=== PATIENT | male | born 1960 | race Caucasian/White ===

== ENCOUNTER → 2020-01-22 | Outpatient (CLI) | payer BC ==
--- NOTE | 2020-01-22 09:37 | XR ---
EXAMINATION TYPE: XR chest 2V DATE OF EXAM: 01/22/2020 COMPARISON: Prior chest x-ray 01/28/2010 HISTORY: COPD and shortness of breath TECHNIQUE: Frontal and lateral views of the chest are obtained. FINDINGS: There is no focal air space opacity, pleural effusion, or pneumothorax seen. Questionable nodular density left lung apex. The cardiac silhouette size is within normal limits. There are promin ent lung volumes. The osseous structures are intact. IMPRESSION: Question left upper lobe lung nodule. Apical lordotic chest x-ray or chest CT could be p erformed for better evaluation.
== END | disposition home or self-care (01) ==
LOC: RADXRMAIN 08:27
PROVIDERS: ATTEND Family Medicine
DX: J44.9 Chronic obstructive pulmonary disease, unspecified (principal); R06.02 Shortness of breath
CPT/HCPCS: 71046

== ENCOUNTER 2020-02-01 09:33 | Inpatient (IN) | payer BC ==
[2020-02-01] MEDS ORDERED: SODIUM CHLORIDE 0.9% 1,000 ML in EMPTY BAG 1 BAG IV ONE (09:36)
[2020-02-01] MEDS ORDERED: ALPRAZolam 0.5 MG TAB PO PRN (09:36)
[2020-02-01] MEDS ORDERED: ALPRAZolam 0.25 MG TAB PO PRN (09:36)
[2020-02-01] MEDS ORDERED: ATORVASTATIN 80 MG TAB PO STA (09:36)
[2020-02-01] MEDS ORDERED: ASPIRIN 325 MG TAB PO STA (09:36)
[2020-02-01] MEDS ORDERED: NITROGLYCERIN SL TABS 0.4 MG TAB SUBLINGUAL PRN (09:36)
--- NOTE | 2020-02-01 10:52 | P.CRDCN ---
<Gladys García - Last Filed: 02/01/20 10:42> History of Present Illness Consult date: 02/01/20 History of present illness: CHIEF COMPLAINT: Shortness of breath HISTORY OF PRESENT ILLNESS: This is a 59-year old male with a past medical history significant for hypertension. Patient does not follow the office with a wellness program administrator. Patient presented to [facility] this morning for an outpatient stress test that was ordered by his primary care physician, Dr. Painter. Patient states he exercises on his treadmill about 3 days a week and he has been noticing he has been getting short of breath when he exercises and also having pain down his left arm that is relieved when he is at rest. He denies having any chest pain. He denies having a previous stress test or cardiac catheterization. He does have a family history of coronary artery disease and states his dad began having stent placements when he was in his 50s. Patient's baseline EKG reveals T-wave inversions in the inferior leads. He also had slight ST depression in the precordial leads. Patient began having increased ST depression immediately upon exercising. He initially did not have any symptoms. He exercised for approximately 9 minutes. Patient began having some shortness of breath and left arm pain that did resolve after his stress test was completed and he was resting. REVIEW OF SYSTEMS: At the time of my exam: CONSTITUTIONAL: Denies fever or chills. HEENT: Denies blurred vision, vision changes, or eye pain. Denies hemoptysis CARDIOVASCULAR: Denies chest pain, orthopnea, PND or palpitations RESPIRATORY: No shortness of breath. GASTROINTESTINAL: Denies abdominal pain. Denies nausea or vomiting. HEMATOLOGIC: Denies bleeding disorders. GENITOURINARY: Denies any blood in urine. SKIN: Denies pruitis. Denies rash. PHYSICAL EXAM: VITAL SIGNS: Reviewed. GENERAL: Well-developed in no acute distress. HEENT: Head is normocephalic. Pupils are equal, round. Sclerae anicteric. Mucous membranes of the mouth are moist. Neck supple. No JVD or thyromegaly LUNGS: Respirations even and unlabored. Lungs essentially clear to auscultation bilaterally. HEART: Regular rate and rhythm. S1 and S2 heard. ABDOMEN: Soft. Nondistended. Nontender. EXTREMITIES: Normal range of motion. No clubbing or cyanosis. Peripheral pulses intact. No lower extremity edema NEUROLOGIC: Awake and alert. Oriented x 3. ASSESSMENT: Abnormal stress test, possible underlying coronary artery disease Hypertension Family history of coronary artery disease PLAN: Spoke with patient regarding abnormal stress test along with patients symptoms and recommended admission to the hospital for cardiac catheterization. Patient and agreeable to plan. Case discussed with Dr. Painter who was agreeable to hospitalization Case discussed with Dr. Figueroa who is agreeable to cardiac cath today Begin aspirin 81mg daily and lipitor 40mg daily Obtain CBC, BMP, and lipid panel 2D echo obtained. Await results Continue telemetry monitoring Further recommendations pending patient course Nurse practitioner note has been reviewed by physician. Signing provider agrees with the documented findings, assessment, and plan of care. Medications and Allergies Allergies Allergy/AdvReac Type Severity Reaction Status Date / Time No Known Allergies Allergy Verified 02/01/20 11:16 Results Current Medications Generic Name Dose Route Start Last Admin Trade Name Freq PRN Reason Stop Dose Admin Alprazolam 0.25 mg 02/01/20 09:36 Alprazolam 0.25 Mg Tab PO Q6HR PRN Mild Anxiety Alprazolam 0.5 mg 02/01/20 09:36 Alprazolam 0.5 Mg Tab PO Q6HR PRN Moderate Anxiety Aspirin 81 mg 02/02/20 09:00 Aspirin 81 Mg PO DAILY LEANNE Aspirin 325 mg 02/01/20 09:36 Aspirin 325 Mg Tab PO 02/01/20 09:37 ONCE STA Atorvastatin Calcium 40 mg 02/01/20 21:00 Atorvastatin 40 Mg Tab PO HS LEANNE Atorvastatin Calcium 80 mg 02/01/20 09:36 Atorvastatin 80 Mg Tab PO 02/01/20 09:37 ONCE STA Sodium Chloride 1,000 ml/ IV 1,000 mls @ 0 mls/hr 02/01/20 09:36 Solution IV 02/01/20 09:37 .Q0M ONE 1 ML/KG/HR Nitroglycerin 0.4 mg 02/01/20 09:36 Nitroglycerin Sl Tabs 0.4 Mg Tab SUBLINGUAL Q5M PRN Chest Pain <Edmundo Vasques - Last Filed: 02/01/20 11:22> Past Medical History - Past Family History Father Family Medical History: Cancer, Diabetes Mellitus, Hypertension Additional Family Medical History / Comment(s): father age 86 Physical Exam Vitals: Vital Signs Pulse Resp BP Pulse Ox 02/01/20 10:29 62 14 142/89 99 Intake and Output 01/31/20 02/01/20 02/01/20 22:59 06:59 14:59 Other: Weight 92.2 kg Results Current Medications Generic Name Dose Route Start Last Admin Trade Name Freq PRN Reason Stop Dose Admin Alprazolam 0.25 mg 02/01/20 09:36 Alprazolam 0.25 Mg Tab PO Q6HR PRN Mild Anxiety Alprazolam 0.5 mg 02/01/20 09:36 Alprazolam 0.5 Mg Tab PO Q6HR PRN Moderate Anxiety Aspirin 81 mg 02/02/20 09:00 Aspirin 81 Mg PO DAILY LEANNE Atorvastatin Calcium 40 mg 02/02/20 21:00 Atorvastatin 40 Mg Tab PO HS LEANNE Nitroglycerin 0.4 mg 02/01/20 09:36 Nitroglycerin Sl Tabs 0.4 Mg Tab SUBLINGUAL Q5M PRN Chest Pain Intake and Output 01/31/20 02/01/20 02/01/20 22:59 06:59 14:59 Other: Weight 92.2 kg Patient Weight 02/02/20 06:59 Weight 92.2 kg
[2020-02-01 11:23] LABS: Basophils # (A) 0.1 k/uL (0-0.2); Basophils % (A) 1 %; Eosinophils % (A) 0 %; HCT 42.7 % (39.0-53.0); HGB 14.3 gm/dL (13.0-17.5); Lymphocytes % (A) 16 %; MCH 30.8 pg (25.0-35.0); MCHC 33.5 g/dL (31.0-37.0); MCV 91.9 fL (80.0-100.0); Mean Platelet Volume 7.9; Monocytes # (A) 0.5 k/uL (0-1.0); Monocytes % (A) 8 %; Neutrophils # (A) 4.2 k/uL (1.3-7.7); Neutrophils % (A) 73 %; Platelet Count 256 k/uL (150-450); RBC 4.65 m/uL (4.30-5.90); RDW 12.4 % (11.5-15.5); WBC 5.8 k/uL (3.8-10.6)
--- NOTE | 2020-02-01 11:28 | P.STRESS ---
- Stress Test Note Stress Test Results/Findings: Exam Performed: Exam Date: Reason for Exam: Height: 6 ft 1 in Weight: 92.2 kg Protocol: Stage: Duration of Exercise: Resting Heart Rate: Resting Blood Pressure: Maximum Achieved Heart Rate: Maximum Achieved Blood Pressure: 85% PMHR: 100% PMHR: METS: Technologist Comment: Stress Test Results/Findings: Baseline heart 74 beats a minute, Baseline blood pressure 154/108 mmHg Baseline to ECG shows sinus rhythm with T-wave inversions in the inferior leads and lead V6 Patient exercised on a Mesfin protocol for 9 minutes achieving peak heart rate of 147 beats a minute. Peak blood pressure 176 104 mmHg Within [address] depression in leads V2 -V5. This is a horizontal S T depression that later became downsloping with a 2 mm depression. PVCs were noted the patient complained of shortness of breath and pain along the inner aspect of his upper arm on the left side At recovery ST depressions persisted up to 6 minutes Impression Abnormal stress test, ischemic response Good exercise capacity Occasional PVCs Results discussed with patient his and with his primary care physician Dr. Hans Painter
[2020-02-01 11:36] LABS: African American GFR (CKD) >90 (>60 ml/min/1.73 sqM); Anion Gap 7 mmol/L; Blood Urea Nitrogen 15 mg/dL (9-20); Calcium 9.6 mg/dL (8.4-10.2); Carbon Dioxide 29 mmol/L (22-30); Chloride 104 mmol/L (98-107); Cholesterol 198 mg/dL (<200); Glucose 116 mg/dL (74-99); HDL Cholesterol 51 mg/dL (40-60); LDL Cholesterol,Calculated 120 mg/dL (0-99); Non-African American GFR(CKD) 85 (>60 ml/min/1.73 sqM); Potassium 4.3 mmol/L (3.5-5.1); Sodium 140 mmol/L (137-145); Triglycerides 136 mg/dL (<150)
[2020-02-01 11:46] LABS: Prothrombin Time 10.1 sec (9.0-12.0)
[2020-02-01] MEDS ORDERED: LIDOCAINE 1% INJ 10MG/ML (20 ML MDV) SQ ONE ×2 (12:32→12:36)
[2020-02-01] MEDS ORDERED: MIDAZOLAM 2 MG/2 ML VIAL IVP ONE (12:33)
[2020-02-01] MEDS ORDERED: fentaNYL (PF) 50 MCG/ML 2 ML AMP IVP ONE (12:33)
[2020-02-01] MEDS ORDERED: VERAPAMIL SYRINGE (5 MG/10 ML) INTRAARTER ONE (12:33)
[2020-02-01] MEDS ORDERED: IV FLUID CONTINUATION 1,000 ML IV ONE (12:33)
[2020-02-01] MEDS ORDERED: HEPARIN SODIUM 1,000 UN/ML (10ML VL) IV ONE (12:36)
[2020-02-01] MEDS ORDERED: RX INFO: IV CONTRAST WAS GIVEN 1 EACH MISC MISCELLANE PRN (12:52)
[2020-02-01] MEDS ORDERED: IOPAMIDOL-370 125ML BTL INJ ONE (12:57)
--- NOTE | 2020-02-01 13:27 | P.CARDCATH ---
Date of Procedure: 02/01/20 Description of Procedure: PROCEDURES PERFORMED: Left heart catheterization, bilateral coronary angiography INDICATION: Abnormal stress test HISTORY: Patient is a pleasant 59-year-old male without significant medical history who presented for a stress EKG. He has been having increased dyspnea with moderate activity as well as left arm pain over the last 3 weeks and therefore his primary care physician ordered a stress EKG. He did go for 9 minutes with baseline EKG changes of T-wave inversions with worsening ST depressions and reproduction of his shortness breath. He therefore was recommended for heart catheterization and was admitted for observation. CONSENT:I have discussed the risks, benefits and alternative therapies for the above-mentioned procedure and for both sedation/analgesia as well as necessary blood product administration, if indicated, as they pertain to this patient. The patient has indicated understanding and acceptance of the risks and procedures discussed. PROCEDURE: After the risks, benefits and alternatives of the above mentioned procedure explained in detail with the patient, informed consent was obtained. Patient was taken to the catheterization lab and prepped and draped in usual fashion. 1% lidocaine was used to anesthetize the right radial artery. A 6-Fr ench sheath was placed in the right radial artery using modified Seldinger technique. Left coronary angiography was performed with a 5-Rwandan JL 3.5 catheter and right coronary angiography was performed with a 5-Rwandan JR5 catheter in various views. The 5-Rwandan JR5 catheter was inserted into the left ventricle and pressure measurements were obtained. The right radial sheath was removed and a TR band was placed with hemostasis achieved. The patient tolerated the procedure well. Patient was transported back to the post catheterization holding area in stable condition. Conscious Sedation: Patient was monitored under the direct supervision of vision of myself for conscious sedation using 2 mg Versed and 50 mcg fentanyl for a total duration of 18 minutes HEMODYNAMICS: Aortic: 142/82 LV: 145 over 4, LVEDP 19 SELECTIVE CORONARY ARTERIOGRAPHY: LEFT MAIN: The left main is a large caliber vessel which bifurcates into the LAD and circumflex. There is no significant stenosis. LEFT ANTERIOR DESCENDING CORONARY ARTERY: LAD is a large caliber vessel which wraps around to the apex. There is a proximal LAD 90% stenosis and then the LAD becomes more of a small to moderate caliber vessel after this lesion. There is a distal LAD 60-70% LAD stenosis and there appears to be some mid to distal LAD bridging. LEFT CIRCUMFLEX CORONARY ARTERY: Left circumflex is a large caliber vessel without significant stenosis. OM1 is moderate to large caliber with a 99% stenosis and STANLEY 2 flow. OM2 is moderate caliber without significant stenosis. RIGHT CORONARY ARTERY: The right coronary artery is a large caliber vessel proximally however becomes small caliber with diffuse disease proximally. There is a mid RCA 100% stenosis. There are left right collaterals to the PDA and PLV which appear small caliber, approximately 2.0mm with mild disease. Syntax score: 19 FINAL IMPRESSION: 1. CAD as described above including 90% proximal LAD, 60-70% distal LAD, 99% OM1 and 100% RCA. 2. Mildly elevated left sided filling pressures PLAN: 1. Aggressive risk factor modification per most recent ACC/AHA guidelines. 2. Cardiothoracic surgery evaluation for possible CABG.
[2020-02-01] MEDS ORDERED: MD COMMUNICATION TO PHARMACY 1 EACH MISC PO ONE ×4 (17:01)
--- NOTE | 2020-02-01 17:49 | P.GSCN ---
History of Present Illness Consult date: 02/01/20 Reason for Consult: Symptomatic multivessel coronary artery disease. Requesting physician: Geronimo Figueroa History of present illness: This is a 59-year-old gentleman who is followed by Dr. Hans Painter on an outpatient basis. He is a past medical history significant for hypertension, osteoarthritis, prostate cancer status post prostatectomy at age 47, family history of early onset coronary artery disease with his grandfather being diagnosed in his early 40s with myocardial infarction and coronary artery disease. Briefly, the patient has been experiencing some shortness of breath and some chest heaviness with radiation of pain down his left arm with activity in cold weather. He reports she's been having these symptoms off and on for the past couple of months. The shortness of breath, chest heaviness and radiation of pain down his left arm is relieved with rest. He denies any complaints of nausea, vomiting, chest pain, edema, orthopnea, dizziness, palpitations, presyncope or syncope. Due to the above-mentioned symptoms he underwent a stress test today 02/01/2020 which was an abnormal stress test. The stress test report states that the patient exercised on a Mesfin protocol for 9 minutes achieving peak heart rate of 147 bpm, a peak blood pressure of 176/104 mmHg, within [address] depression in leads V2V5, and the patient complained of shortness of breath and pain along the inner aspect of his upper arm on the left side. The ST depression persisted for up to 6 minutes@recovery. Subsequently due to the stress test results he underwent a cardiac catheterization which demonstrated a 90% stenosis to his proximal left anterior descending coronary artery, a distal stenosis of 60-70% to his left anterior descending coronary artery, a 99% stenosis to his obtuse marginal #1 coronary artery and a totally occluded mid right coronary artery. A 2-D echocardiogram was also completed which showed overall left ventricular systolic function to be low normal with an ejection fraction between 50 and 55%, trace to mild mitral valve regurgitation and trace to mild pulmonic valve regurgitation. The heart catheterization results were reviewed with the patient by Dr. Figueroa and subsequently due to the results of the heart catheterization a consult was placed to Dr. Yared Ruiz from cardiothoracic surgery for further evaluation and treatment recommendations including myocardial revascularization surgery. Review of Systems A 14 point review of systems was completed and was negative except as mentioned in the HPI. - Musculoskeletal Musculoskeleta Comment(s): Reports he has some right upper extremity weakness and muscle atrophy due to some previous nerve injury. Past Medical History Past Medical History: Cancer (Prostate), Hypertension, Osteoarthritis (OA), P rostate Disorder Additional Past Medical History / Comment(s): History of prostate cancer status post prostatectomy History of Any Multi-Drug Resistant Organisms: None Reported Past Surgical History: Orthopedic Surgery, Prostate Surgery Additional Past Surgical History / Comment(s): right hip replaced Past Anesthesia/Blood Transfusion Reactions: No Reported Reaction Past Psychological History: No Psychological Hx Reported Smoking Status: Never smoker Past Alcohol Use History: Occasional Past Drug Use History: None Reported - Past Family History Father Family Medical History: Cancer, Diabetes Mellitus, Hypertension, Myocardial Infarction (AR) Additional Family Medical History / Comment(s): father age 86 from lung cancer. Also reports his grandfather was diagnosed in his early 40s with coronary artery disease and myocardial infarction. Mother Additional Family Medical History / Comment(s): Arthritis Medications and Allergies Home Medications Medication Instructions Recorded Confirmed Type Albuterol Sulfate [Albuterol 1 puff INHALATION RT-QID PRN 02/01/20 02/01/20 History Sulfate Hfa] Multivitamins, Thera [Multivitamin 1 tab PO DAILY 02/01/20 02/01/20 History (formulary)] amLODIPine [Norvasc] 2.5 mg PO DAILY 02/01/20 02/01/20 History Allergies Allergy/AdvReac Type Severity Reaction Status Date / Time No Known Allergies Allergy Verified 02/01/20 11:16 Surgical - Exam Vital Signs Pulse Resp BP Pulse Ox 62 14 142/89 99 02/01/20 10:29 02/01/20 10:29 02/01/20 10:29 02/01/20 10:29 - General well developed, well nourished, no distress, no pain - Eyes PERRL, normal ocular movement, no icteric - ENT normal pinna, normal nares, normal mucosa, no hearing loss, no congestion - Neck Neck is supple, no JVD. no masses, no bruits, trachea midline, no venous distension - Respiratory Lung sounds essentially clear throughout. Respirations are symmetrical and nonlabored. No wheezes, rhonchi or crackles. - Cardiovascular Regular rhythm and rate. S1 and S2 present, negative for S3, gallop or murmur. No edema present. - Abdomen Abdomen is soft, nontender and nondistended. Active bowel sounds present in all 4 abdominal quadrants. No guarding or rigidity. No organomegaly appreciated. - Genitourinary Deferred - Rectum Deferred - Integumentary no rash, no growths, no abnormal pigmentation - Neurologic No focal or neurological deficits. Cranial nerves II through XII intact. - Musculoskeletal Moves all 4 extremities. Slight muscle weakness to his right upper extremity. - Psychiatric oriented to time, oriented to person, oriented to place, speech is normal, memory intact Results - Labs 02/01/20 11:06 02/01/20 11:06 Abnormal Lab Results - Last 24 Hours (Table) 02/01/20 Range/Units 11:06 Glucose 116 H (74-99) mg/dL LDL Cholesterol, Calc 120 H (0-99) mg/dL Diabetes panel 02/01/20 Range/Units 11:06 Sodium 140 (137-145) mmol/L Potassium 4.3 (3.5-5.1) mmol/L Chloride 104 (98-107) mmol/L Carbon Dioxide 29 (22-30) mmol/L BUN 15 (9-20) mg/dL Creatinine 0.98 (0.66-1.25) mg/dL Glucose 116 H (74-99) mg/dL Calcium 9.6 (8.4-10.2) mg/dL Triglycerides 136 (<150) mg/dL HDL Cholesterol 51 (40-60) mg/dL Calcium panel 02/01/20 Range/Units 11:06 Calcium 9.6 (8.4-10.2) mg/dL Pituitary panel 02/01/20 Range/Units 11:06 Sodium 140 (137-145) mmol/L Potassium 4.3 (3.5-5.1) mmol/L Chloride 104 (98-107) mmol/L Carbon Dioxide 29 (22-30) mmol/L BUN 15 (9-20) mg/dL Creatinine 0.98 (0.66-1.25) mg/dL Glucose 116 H (74-99) mg/dL Calcium 9.6 (8.4-10.2) mg/dL Adrenal panel 02/01/20 Range/Units 11:06 Sodium 140 (137-145) mmol/L Potassium 4.3 (3.5-5.1) mmol/L Chloride 104 (98-107) mmol/L Carbon Dioxide 29 (22-30) mmol/L BUN 15 (9-20) mg/dL Creatinine 0.98 (0.66-1.25) mg/dL Glucose 116 H (74-99) mg/dL Calcium 9.6 (8.4-10.2) mg/dL - Imaging Additional studies: Heart catheterization results were reviewed by Dr. Yared Ruiz. Assessment and Plan Assessment: 1. Symptomatic multivessel coronary artery disease 2. Shortness of breath on exertion 3. History of hypertension 4. History of prostate cancer status post prostatectomy at age 47 5. Questionable left upper lobe lung nodule on recent chest x-ray from 01/22/2020 6. Osteoarthritis Plan: The patient was seen and examined at his bedside on the cardiac observation unit. His chart and diagnostics were reviewed. His case was discussed in detail with Dr. Yared Ruiz from cardiothoracic surgery who reviewed his cardiac catheterization films. The usual preoperative course of myocardial revascularization surgery was discussed in detail with the patient, all risks and benefits were reviewed with the patient and once his preoperative testing has been obtained a STS risk score will be discussed with the patient. A 5 m walk test will be completed with the patient tomorrow 02/02/2020. Recommend maximizing medical therapy with aspirin, statin and beta hannah. Preoperative testing and preoperative teaching has been initiated with the patient and the patient's , and their questions were answered to the best of my ability. Medical management other comorbidities per primary care service. Due to the nature of his disease process, the plan is to schedule him for an urgent coronary artery bypass grafting surgery with left internal mammary artery, endoscopic harvesting of the left radial artery, endoscopic harvesting of the greater saphenous vein and intraoperative transesophageal echocardiogram to be completed by Dr. Fabiola Fraire on 02/05/2020. Dr. Fraire will meet with the patient tomorrow morning 02/02/2020 with further discussions regarding myocardial revascularization surgery. Knowing the risks and benefits of myocardial revascularization surgery, the patient wishes to proceed with the surgical option. Thank you Dr. Figueroa and Dr. Vasques for this consult and we look forward to working with you in the care of this patient. Nurse practitioner note has been reviewed by the physician. Signing provider agrees with the above documented findings, assessment and plan of care. Time with Patient: Greater than 30
[2020-02-01] MEDS: HEPARIN SODIUM,PORCINE 5,000 UNIT/ML 1 ML VIAL SQ SCH (18:10)
--- NOTE | 2020-02-01 18:35 | CT ---
EXAMINATION TYPE: CT chest wo con DATE OF EXAM: 02/01/2020 COMPARISON: None HISTORY: abnormal cxr CT DLP: 400.4 mGycm Automated exposure control for dose reduction was used. Images obtained without contrast from the thoracic inlet to the diaphragm. The lungs are clear of consolidation. There is no evidence of a pulmonary mass. There is no pleural e ffusion. There is no pericardial effusion. Upper abdominal soft tissues are intact. Heart size is normal. There are no hilar masses. There is no pericardial effusion. There is coronary artery calcification. There is no mediastinal adenopathy. Specifically there is no evidence of a nodu le in the left upper lobe. The bony thorax is intact. Sternum is intact. The ribs appear intact. IMPRESSION: Negative exam. No evidence of a pulmonary nodule.
[2020-02-01 19:02] LABS: ALT 20 U/L (4-49); AST 28 U/L (17-59); African American GFR (CKD) >90 (>60 ml/min/1.73 sqM); Albumin 4.5 g/dL (3.5-5.0); Alkaline Phosphatase 69 U/L (38-126); Anion Gap 7 mmol/L; Blood Urea Nitrogen 18 mg/dL (9-20); Calcium 9.6 mg/dL (8.4-10.2); Carbon Dioxide 26 mmol/L (22-30); Chloride 105 mmol/L (98-107); Glucose 107 mg/dL (74-99); Magnesium 2.2 mg/dL (1.6-2.3); Non-African American GFR(CKD) 90 (>60 ml/min/1.73 sqM); Potassium 4.2 mmol/L (3.5-5.1); Sodium 138 mmol/L (137-145); Total Bilirubin 0.6 mg/dL (0.2-1.3); Total Protein 7.5 g/dL (6.3-8.2)
[2020-02-01] MEDS: MUPIROCIN 2% OINT 22 GM TUBE NASAL SCH (20:20)
[2020-02-01] MEDS: METOPROLOL TARTRATE 12.5 MG TAB PO SCH (20:20)
[2020-02-01 21:51] LABS: Appearance,Urine Clear (Clear); Bilirubin,Urine Negative (Negative); Blood,Urine Negative (Negative); Color,Urine Light Yellow; Glucose,Urine (UA) Negative (Negative); Ketones,Urine Negative (Negative); Leukocyte Esterase,Urine Negative (Negative); Nitrite,Urine Negative (Negative); Protein,Urine Negative (Negative); Specific Gravity,Urine 1.022 (1.001-1.035); Urobilinogen,Urine <2.0 mg/dL (<2.0)
[2020-02-02] MEDS: HEPARIN SODIUM,PORCINE 5,000 UNIT/ML 1 ML VIAL SQ SCH ×4 (00:15→23:42)
[2020-02-02 01:50] LABS: Hemoglobin A1C 5.8 % (4.0-6.0)
[2020-02-02 04:57] LABS: Hepatitis A Antibody IgM Non-Reactive (Non-Reactive); Hepatitis B Core IgM Non-Reactive (Non-Reactive); Hepatitis B Surface Antigen Non-Reactive (Non-Reactive); Hepatitis C IgG Antibody Non-Reactive (Non-Reactive)
[2020-02-02] MEDS: PANTOPRAZOLE 40 MG TABLET PO SCH (06:32)
--- NOTE | 2020-02-02 07:52 | P.PN ---
Subjective Progress Note Date: 02/02/20 Principal diagnosis: Chest pain This is a pleasant 59-year-old gentleman with hypertension and dyslipidemia who presented to the hospital with chest discomfort and underwent a stress test and that came in to be ischemic. Subsequently a heart catheterization was performed and revealed severe triple vessel coronary artery disease. The patient was seen by the cardiothoracic team pursue with coronary artery bypass grafting. The patient was seen today. He is asymptomatic from a cardiovascular standpoint of view. He is staying in the hospital to the surgery which is this coming Tuesday. He is in process of having a work up for the surgery. Vitals are stable. He denies any symptoms of chest pain or chest discomfort or shortness of breath at this point. He is on aspirin and statin and beta hannah. Objective - Vital Signs Vital signs: Vital Signs Temp 98 F 02/02/20 04:10 Pulse 50 L 02/02/20 04:10 Resp 18 02/02/20 04:10 BP 138/80 02/02/20 04:10 Pulse Ox 97 02/02/20 04:10 Intake & Output 02/01/20 02/02/20 02/02/20 18:59 06:59 18:59 Intake Total 200 Balance 200 Weight 92.2 kg Intake: IV 200 Other: Voiding Method Toilet Toilet # Voids 1 1 - Constitutional General appearance: Present: no acute distress - Respiratory Respiratory: bilateral: CTA - Cardiovascular Rhythm: regular Heart sounds: normal: S1, S2 - Labs CBC & Chem 7: 02/01/20 11:06 02/01/20 18:21 Labs: Abnormal Lab Results - Last 24 Hours (Table) 02/01/20 02/01/20 Range/Units 11:06 18:21 Glucose 116 H 107 H (74-99) mg/dL LDL Cholesterol, Calc 120 H (0-99) mg/dL Microbiology - Last 24 Hours (Table) 02/01/20 Unknown Nasal Screen MRSA/MSSA - Preliminary Nasal Swab Assessment and Plan Assessment: Assessment #1 severe triple-vessel CAD #2 hypertension #3 dyslipidemia Plan #1 continue the current medical regimen #2 the patient is going to undergo CABG #3 follow-up with the patient
[2020-02-02] MEDS ORDERED: amLODIPine 2.5 MG TAB PO SCH (09:00)
--- NOTE | 2020-02-02 09:46 | US ---
EXAMINATION TYPE: US carotid duplex BILAT DATE OF EXAM: 02/02/2020 COMPARISON: NONE CLINICAL HISTORY: Pre-Op Cardiac Surgery,Ankle Brachial Index (RISHABH) . Pre-op CABG EXAM MEASUREMENTS: RIGHT: Peak Systolic Velocity (PSV) cm/sec ----- Right CCA: 105 ----- Right ICA: 88.3 ----- Right ECA: 107 ICA/CCA ratio: 0.84 RIGHT: End Diastole cm/sec ----- Right CCA: 27.9 ----- Right ICA: 31.8 ----- Right ECA: 9.7 LEFT: Peak Systolic Velocity (PSV) cm/sec ----- Left CCA: 125 ----- Left ICA: 92.9 ----- Left ECA: 105 ICA/CCA ratio: 0.74 LEFT: End Diastole cm/sec ----- Left CCA: 24.7 ----- Left ICA: 22.7 ----- Left ECA: 5.9 VERTEBRALS (direction of flow): Right Vertebral: Antegrade Left Vertebral: Antegrade Rhythm: Normal Grayscale, color Doppler, spectral Doppler imaging performed of the carotid arteries. Waveform analys is does not show significant stenosis of the internal carotid arteries. Mild plaque bilateral bifurca tions. No evidence of significant stenosis IMPRESSION: No hemodynamic significant stenosis of the internal carotid arteries by Doppler criteria , an indirect measurement of carotid stenosis Criteria for Assigning % of Stenosis / Diameter reduction (Estimation based on the indirect measurements of the internal carotid artery velocities (ICA PSV). 1. Normal (no stenosis)=ICA PSV < 125 cm/s: ratio < 2.0: ICA EDV<40 cm/s. 2. Less than 50% stenosis=ICA PSV < 125 cm/s: ratio < 2.0: ICA EDV<40 cm/s. 3. 50 to 69% stenosis=ICA PSV of 125 to 230 cm/s: ration 2.0 ? 4.0: ICA EDV 40-100 cm/s. 4. Greater than 70% stenosis to near occlusion= ICA PSV > 230 cm/s: ratio > 4.0: ICA EDV > 100 cm/s. 5. Near occlusion= ICA PSV velocities may be low or undetectable: variable ratio and ICA EDV. 6. Total occlusion=unable to detect flow.
--- NOTE | 2020-02-02 09:52 | P.HPIM ---
History of Present Illness Clay 59-year-old clay male with the significant family history of coronary artery disease came in with chest discomfort, underwent stress test which was positive for inducible ischemia underwent cardiac catheterization which showed triple-vessel disease. Patient is being evaluated for coronary artery bypass grafting which is tentatively scheduled for Tuesday. Patient doesn't have any chest pain at this time. Patient denied any fever chills nausea vomiting abdominal pain dysuria patient is in aspirin statin and a beta hannah at this time Review of Systems REVIEW OF SYSTEMS: CONSTITUTIONAL: No fever, no malaise, no fatigue. HEENT: No recent visual problems or hearing problems. Denied any sore throat. CARDIOVASCULAR: No chest pain, orthopnea, PND, no palpitations, no syncope. PULMONARY: No shortness of breath, no cough, no hemoptysis. GASTROINTESTINAL: No diarrhea, no nausea, no vomiting, no abdominal pain. NEUROLOGICAL: No headaches, no weakness, no numbness. HEMATOLOGICAL: Denies any bleeding or petechiae. GENITOURINARY: Denies any burning micturition, frequency, or urgency. MUSCULOSKELETAL/RHEUMATOLOGICAL: Denies any joint pain, swelling, or any muscle pain. ENDOCRINE: Denies any polyuria or polydipsia. The rest of the 14-point review of systems is negative. Past Medical History Past Medical History: Cancer (Prostate), Hypertension, Osteoarthritis (OA), Prostate Disorder Additional Past Medical History / Comment(s): History of prostate cancer status post prostatectomy History of Any Multi-Drug Resistant Organisms: None Reported Past Surgical History: Orthopedic Surgery, Prostate Surgery Additional Past Surgical History / Comment(s): right hip replaced Past Anesthesia/Blood Transfusion Reactions: No Reported Reaction Past Psychological History: No Psychological Hx Reported Smoking Status: Never smoker Past Alcohol Use History: Occasional Past Drug Use History: None Reported - Past Family History Father Family Medical History: Cancer, Diabetes Mellitus, Hypertension, Myocardial Infarction ([place]) Additional Family Medical History / Comment(s): father age 86 from lung cancer. Also reports his grandfather was diagnosed in his early 40s with coronary artery disease and myocardial infarction. Mother Additional Family Medical History / Comment(s): Arthritis Medications and Allergies Home Medications Medication Instructions Recorded Confirmed Type Albuterol Sulfate [Albuterol 1 puff INHALATION RT-QID PRN 02/01/20 02/01/20 History Sulfate Hfa] Multivitamins, Thera [Multivitamin 1 tab PO DAILY 02/01/20 02/01/20 History (formulary)] amLODIPine [Norvasc] 2.5 mg PO DAILY 02/01/20 02/01/20 History Allergies Allergy/AdvReac Type Severity Reaction Status Date / Time No Known Allergies Allergy Verified 02/01/20 11:16 Physical Exam Vitals: Vital Signs Temp Pulse Resp BP Pulse Ox 02/02/20 04:10 98 F 50 L 18 138/80 97 02/01/20 20:15 97.8 F 68 17 130/89 98 02/01/20 15:15 66 148/89 99 02/01/20 14:45 62 159/103 98 02/01/20 14:30 68 134/81 98 02/01/20 14:15 64 154/98 96 02/01/20 14:00 66 144/95 98 02/01/20 13:39 76 145/98 98 02/01/20 13:20 97.8 F 16 155/95 98 02/01/20 10:29 62 14 142/89 99 Intake and Output 02/01/20 02/02/20 02/02/20 22:59 06:59 14:59 Other: Voiding Method Toilet Toilet # Voids 2 1 PHYSICAL EXAMINATION: GENERAL: The patient is alert and oriented x3, not in any acute distress. Well developed, well nourished. HEENT: Pupils are round and equally reacting to light. EOMI. No scleral icterus. No conjunctival pallor. Normocephalic, atraumatic. No pharyngeal erythema. No thyromegaly. CARDIOVASCULAR: S1 and S2 present. No murmurs, rubs, or gallops. PULMONARY: Chest is clear to auscultation, no wheezing or crackles. ABDOMEN: Soft, nontender, nondistended, normoactive bowel sounds. No palpable organomegaly. MUSCULOSKELETAL: No joint swelling or deformity. EXTREMITIES: No cyanosis, clubbing, or pedal edema. NEUROLOGICAL: Gross neurological examination did not reveal any focal deficits. SKIN: No rashes. Results CBC & Chem 7: 02/01/20 11:06 02/01/20 18:21 Labs: Abnormal Lab Results - Last 24 Hours (Table) 02/01/20 02/01/20 Range/Units 11: 18:21 Glucose 116 H 107 H (74-99) mg/dL LDL Cholesterol, Calc 120 H (0-99) mg/dL Microbiology - Last 24 Hours (Table) 02/01/20 Unknown Nasal Screen MRSA/MSSA - Preliminary Nasal Swab Thrombosis Risk Factor Assmnt - Choose All That Apply Any of the Below Risk Factors Present?: Yes Each Factor Represents 1 point: Age 41-60 years Other Risk Factors: No Thrombosis Risk Factor Assessment Total Risk Factor Score: 1 Thrombosis Risk Factor Assessment Level: Low Risk Assessment and Plan Plan: -Chest pain, found to have severe triple vessel disease coronary artery disease: Patient will undergo coronary artery bypass grafting and Tuesday continue with the aspirin, continue his statin Kailyn hannah patient is undergoing preoperative workup for workup for CABG please refer to cut his thoracic documentation for further details patient will receive preoperative antibiotics -Hypertension -Hyperlipidemia -3 of prostate cancer post status post prostatectomy.
--- NOTE | 2020-02-02 10:01 | P.PN ---
Subjective Progress Note Date: 02/02/20 Principal diagnosis: Symptomatic multivessel coronary artery disease. Past medical history significant for hypertension, osteoarthritis, prostate cancer status post prostatectomy at age 47, family history of early onset coronary artery disease with his grandfather being diagnosed in his early 40s with myocardial infarction and coronary artery disease. The patient was seen in follow-up today at his bedside on the cardiac observation unit. He is sitting up to the bedside edge, awake, alert and oriented 3 and is in no acute distress. He remains hemodynamically stable and is currently on no inotropic or pressor support. Denies any complaints of pain or shortness of breath at this time. A 5 m walk test was completed with time 1: 1.90 seconds, time 2: 1.66 seconds, time 3: 1.30 seconds. He denies any complaints of symptoms with the walk test. Preoperative testing is in progress and preoperative teaching was reinforced with the patient and his questions were answered to the best of my ability. Oxygen saturation are 97% on room air. Objective - Vital Signs Vital signs: Vital Signs Temp 98 F 02/02/20 04:10 Pulse 50 L 02/02/20 04:10 Resp 18 02/02/20 04:10 BP 138/80 02/02/20 04:10 Pulse Ox 97 02/02/20 04:10 Intake & Output 02/01/20 02/02/20 02/02/20 18:59 06:59 18:59 Intake Total 200 Balance 200 Weight 92.2 kg Intake: IV 200 Other: Voiding Method Toilet Toilet # Voids 1 1 - Constitutional General appearance: Present: average body habitus, cooperative, no acute distress - EENT Eyes: Present: normal appearance. Absent: scleral icterus ENT: Present: hearing grossly normal - Neck Details: Neck is supple, no JVD, no lymphadenopathy. - Respiratory Details: Lung sounds are essentially clear throughout. No wheezes, rhonchi or crackles. Respirations are symmetrical and nonlabored. Oxygen saturation are 97% on room air. - Cardiovascular Details: Regular rhythm and rate. S1 and S2 present, negative for S3, gallop or murmur. No edema present. Sequential compression devices in place was bilateral lower extremities. - Gastrointestinal Gastrointestinal Comment(s): Abdomen is soft, nontender and nondistended. Active bowel sounds to all 4 abd ominal quadrants. No guarding or rigidity. No old or megaly appreciated. Tolerating oral intake. - Genitourinary Genitourinary Comment(s): Continues to void. - Integumentary Integumentary Comment(s): Skin is warm and dry. No clubbing or cyanosis is present. No rash or abnormal pigmentation is present. - Neurologic Neurologic: Present: CNII-XII intact - Musculoskeletal Musculoskeletal: Present: gait normal, generalized weakness, strength equal bilaterally - Psychiatric Psychiatric: Present: A&O x's 3, appropriate affect, intact judgment & insight - Allied health notes Allied health notes reviewed: nursing - Labs CBC & Chem 7: 02/01/20 11:06 02/01/20 18:21 Labs: Abnormal Lab Results - Last 24 Hours (Table) 02/01/20 02/01/20 Range/Units 11: 18:21 Glucose 116 H 107 H (74-99) mg/dL LDL Cholesterol, Calc 120 H (0-99) mg/dL Microbiology - Last 24 Hours (Table) 02/01/20 Unknown Nasal Screen MRSA/MSSA - Preliminary Nasal Swab - Imaging and Cardiology CT scan - chest: report reviewed, image reviewed Carotid duplex study results, ABIs and vein mapping results reviewed. Assessment and Plan Assessment: 1. Symptomatic multivessel coronary artery disease 2. Shortness of breath on exertion 3. History of hypertension 4. History of prostate cancer status post prostatectomy at age 47 5. Questionable left upper lobe lung nodule on recent chest x-ray from 01/22/2020 6. Osteoarthritis Plan: 1. Continue to optimize medical management with aspirin, statin and beta hannah. 2. Preoperative teaching and preoperative testing in progress. Reinforce preoperative teaching with the patient on myocardial revascularization surgery and his questions were and showed the best my ability. 3. He is scheduled for myocardial revascularization surgery on 02/05/2020, with left internal mammary artery, left radial artery endoscopic harvest, endoscopic greater saphenous vein harvest and intraoperative transes ophageal echocardiogram to be performed by Dr. Fabiola Fraire. 4. 5 m walk test was completed with time 1: 1.90 seconds, time 2: 1.66 seconds, time 3: 1.30 seconds. 5. Once his preoperative testing has been completed and obtained a STS risk score will be calculated in discussed with the patient by Dr. Fraire. 6. Medical management other comorbidities per primary care service. 7. GI and DVT prophylaxis. 8. More recommendations to follow based on patient's clinical course. Time with Patient: Greater than 30
[2020-02-02] MEDS: MUPIROCIN 2% OINT 22 GM TUBE NASAL SCH ×2 (10:30→20:04)
[2020-02-02] MEDS: ASPIRIN 81 MG PO SCH (10:30)
[2020-02-02] MEDS: METOPROLOL TARTRATE 12.5 MG TAB PO SCH ×2 (10:30→22:09)
--- NOTE | 2020-02-02 16:59 | CONS ---
CONSULTATION HISTORY OF PRESENT ILLNESS: 59-year-old male with a significant family history of coronary artery disease, who came into the hospital with complaints of chest discomfort. He had a positive stress test which was positive for inducible ischemia. He underwent cardiac catheterization which showed triple-vessel disease. He is currently being evaluated by Cardiothoracic surgery for possible surgery next Tuesday. Currently, he is not having any pain. I am seeing the patient primarily for preoperative clearance. He is a lifelong nonsmoker. He denies a diagnosis of asthma, COPD, chronic bronchitis, or any lung disorder. He really denies any shortness of breath at this time. He denies any fever, chills. Denies any nausea, vomiting, diarrhea, or abdominal pain. He also denies any genitourinary complaints. PAST MEDICAL HISTORY: Positive for prostate cancer, hypertension, osteoarthritis, and previous prostatectomy. SURGICAL HISTORY: Includes a prostatectomy, as well as right hip replacement. SOCIAL HISTORY: Negative for tobacco use. He drinks alcohol occasionally. No illicit drug use. FAMILY HISTORY: Positive for a father with cancer, diabetes, hypertension, and myocardial infarction. Father at age 86 from lung cancer. Mother has a history of arthritis. HOME MEDICATIONS: Include albuterol, multivitamins and amlodipine. ALLERGIES: Denied. REVIEW OF SYSTEMS: CONSTITUTIONAL negative. NEUROLOGIC negative. HEENT negative. CARDIOVASCULAR: Chest pain. PULMONARY negative. GI negative. negative. RHEUMATOLOGIC negative. IMMUNOLOGIC negative. ENDOCRINOLOGIC negative. DERMATOLOGIC negative. PHYSICAL EXAMINATION: VITAL SIGNS: Current vital signs are reviewed. Temperature is 98, heart rate 73, respiratory rate 16, blood pressure 134/81 mean 98, room air saturation 98%. GENERAL: Appears in no acute distress. HEENT: Examination is grossly unremarkable. NECK: Supple. Full range of motion. No adenopathy. Neck veins are flat. CARDIOVASCULAR: Examination reveals regular rhythm and rate. Heart rate mid 70s. S1, S2 normal. No S3, S4, or murmur. LUNGS: Reveal clear breath sounds. No wheezes, rhonchi, or crackles. ABDOMEN: Soft. Bowel sounds are heard. EXTREMITIES are intact. No cyanosis, clubbing, or edema. SKIN: Without rash. NEUROLOGIC: Examination is nonfocal. LABS: Reviewed. White count 5.8, hemoglobin 14.3, hematocrit 42.7, platelet count 256,000. PT/INR, PTT all normal. Sodium, potassium chloride, CO2 all normal. Anion gap is 7. BUN and creatinine were 18 and 0.93, glucose of 107. Urine is negative. Serology was negative. Microbiology includes a nasal swab, which is currently negative. Carotid Doppler study shows no hemodynamic significant stenosis of the internal carotid arteries. Chest CT done January 31 shows no evidence of pulmonary nodule or mass. Current medications are reviewed. A catheterization done on January 31 shows evidence of a 90% proximal LAD lesion, 60- 70 percent distal LAD lesion, 99% OM1 lesion and 100% right coronary artery lesion. ASSESSMENT: 1. Significant coronary artery disease, with anticipated bypass grafting, sometime early next week. 2. No evidence of any pulmonary disease. 3. Lifelong nonsmoker. 4. History of hypertension. 5. History of prostate cancer, status post prostatectomy. 6. Osteoarthritis. PLAN: We will follow along. Patient appears to have no issues relating to the lungs. He denies any asthma, COPD, chronic bronchitis. He denies shortness of breath, chest tightness, wheezing, cough or phlegm production. He is a lifelong nonsmoker. No additional recommendations are made. Will await to see the spirometry. MMODL / IJN: [id number] /
[2020-02-02] MEDS: ATORVASTATIN 80 MG TAB PO SCH (20:04)
[2020-02-02] MEDS ORDERED: ATORVASTATIN 40 MG TAB PO SCH (21:00)
[2020-02-03] MEDS: PANTOPRAZOLE 40 MG TABLET PO SCH (06:16)
--- NOTE | 2020-02-03 08:53 | P.PN ---
Subjective Progress Note Date: 02/03/20 Principal diagnosis: Chest pain This is a pleasant 59-year-old gentleman with hypertension and dyslipidemia who presented to the hospital with chest discomfort and underwent a stress test and that came in to be ischemic. Subsequently a heart catheterization was performed and revealed severe triple vessel coronary artery disease. The patient was seen by the cardiothoracic team pursue with coronary artery bypass grafting. The patient was seen today February [id number]. He remains asymptomatic from the cardiac standpoint overview. He remains hemodynamically stable. He is on maximize medical treatment including aspirin and beta hannah and statin. The plan is to pursue coronary artery bypass grafting in the next 24-48 hours and the patient is a staying in the hospital to the surgery. Objective - Vital Signs Vital signs: Vital Signs Temp 98.1 F 02/03/20 08:32 Pulse 67 02/03/20 08:32 Resp 16 02/03/20 08:32 BP 126/84 02/03/20 08:32 Pulse Ox 97 02/03/20 08:32 Intake & Output 02/02/20 02/03/20 02/03/20 18:59 06:59 18:59 Other: Voiding Method Toilet Toilet Toilet # Voids 3 1 - Constitutional General appearance: Present: no acute distress - Respiratory Respiratory: bilateral: CTA - Cardiovascular Rhythm: regular Heart sounds: normal: S1, S2 - Labs CBC & Chem 7: 02/01/20 11:06 02/01/20 18:21 Labs: Microbiology - Last 24 Hours (Table) 02/01/20 Unknown Nasal Screen MRSA/MSSA - Final Nasal Swab Staphylococcus aureus,Not MRSA Assessment and Plan Assessment: Assessment #1 severe triple-vessel CAD #2 hypertension #3 dyslipidemia Plan #1 continue the current medical regimen #2 the patient is going to undergo CABG #3 follow-up with the patient
[2020-02-03] MEDS: HEPARIN SODIUM,PORCINE 5,000 UNIT/ML 1 ML VIAL SQ SCH ×2 (09:10→17:16)
[2020-02-03] MEDS: ASPIRIN 81 MG PO SCH (09:10)
[2020-02-03] MEDS: METOPROLOL TARTRATE 12.5 MG TAB PO SCH ×2 (09:10→21:42)
[2020-02-03] MEDS: MUPIROCIN 2% OINT 22 GM TUBE NASAL SCH ×2 (09:10→21:42)
--- NOTE | 2020-02-03 10:23 | P.PN ---
Subjective Patient is admitted with chest pain found to have triple-vessel disease will undergo coronary artery bypass grafting on Tuesday. Constitutional: Denied any fatigue denied any fever. Cardio vascular: denied any chest pain, palpitations Gastrointestinal denied any nausea vomiting Pulmonary: Denied any shortness of breath cough Neurologic denied any new focal deficits All inpatient medications were reviewed and appropriate changes in these medica tions as dictated in the interval history and assessment and plan. Objective - Vital Signs Vital signs: Vital Signs Temp 98.1 F 02/03/20 08:32 Pulse 67 02/03/20 08:32 Resp 16 02/03/20 08:32 BP 126/84 02/03/20 08:32 Pulse Ox 97 02/03/20 08:32 Intake & Output 02/02/20 02/03/20 02/03/20 18:59 06:59 18:59 Other: Voiding Method Toilet Toilet Toilet # Voids 3 1 - Exam PHYSICAL EXAMINATION: GENERAL: The patient is alert and oriented x3, not in any acute distress. Well developed, well nourished. HEENT: Pupils are round and equally reacting to light. EOMI. No scleral icterus. No conjunctival pallor. Normocephalic, atraumatic. No pharyngeal erythema. No thyromegaly. CARDIOVASCULAR: S1 and S2 present. No murmurs, rubs, or gallops. PULMONARY: Chest is clear to auscultation, no wheezing or crackles. ABDOMEN: Soft, nontender, nondistended, normoactive bowel sounds. No palpable organomegaly. MUSCULOSKELETAL: No joint swelling or deformity. EXTREMITIES: No cyanosis, clubbing, or pedal edema. NEUROLOGICAL: Gross neurological examination did not reveal any focal deficits. SKIN: No rashes. - Labs CBC & Chem 7: 02/01/20 11:06 02/01/20 18:21 Labs: Microbiology - Last 24 Hours (Table) 02/01/20 Unknown Nasal Screen MRSA/MSSA - Final Nasal Swab Staphylococcus aureus,Not MRSA Assessment and Plan Plan: -Chest pain, found to have severe triple vessel disease coronary artery disease: Patient will undergo coronary artery bypass grafting and Tuesday continue with the aspirin, continue his statin,beta hannah patient is undergoing preoperative workup for workup for CABG please refer to cut his thoracic documentation for further details patient will receive preoperative antibiotics -Hypertension -Hyperlipidemia -History of prostate cancer post status post prostatectomy.
--- NOTE | 2020-02-03 12:52 | P.PN ---
Subjective Progress Note Date: 02/03/20 Principal diagnosis: Symptomatic multivessel coronary artery disease. Past medical history significant for hypertension, osteoarthritis, prostate cancer status post prostatectomy at age 47, family history of early onset coronary artery disease with his grandfather being diagnosed in his early 40s with myocardial infarction and coronary artery disease. The patient was seen in follow-up today at his bedside on the cardiac observation unit. He is up ambulating in his room, is awake, alert and oriented 3. He is in no apparent acute distress. Denies any complaints of pain or shortness of breath with ambulating. A bedside FEV1 was completed yesterday which showed a predicted value of 85%. He is achieving 5000 mL on his incentive spirometry. Oxygen saturation are 97% on room air. Preoperative teaching for myocardial arrest position surgery was reinforced with the patient and his questions were answered to the best my ability. Objective - Vital Signs Vital signs: Vital Signs Temp 98.1 F 02/03/20 08:32 Pulse 67 02/03/20 08:32 Resp 16 02/03/20 08:32 BP 126/84 02/03/20 08:32 Pulse Ox 97 02/03/20 08:32 Intake & Output 02/02/20 02/03/20 02/03/20 18:59 06:59 18:59 Other: Voiding Method Toilet Toilet Toilet # Voids 3 1 - Constitutional General appearance: Present: average body habitus, cooperative, no acute distress - EENT Eyes: Present: normal appearance. Absent: scleral icterus - Neck Details: Neck is supple, no JVD, no lymphadenopathy. - Respiratory Details: Lung sounds are essentially clear throughout. No wheezes, rhonchi or crackles. Respirations are symmetrical and nonlabored. Bedside FEV1 was completed yesterday 02/02/2020 which showed her predicted value of 85%. Achieving 5000 mL on his incentive spirometry. - Cardiovascular Details: Regular rhythm and rate. S1 and S2 present, negative rest, gallop or murmur. No edema present. - Gastrointestinal Gastrointestinal Comment(s): Abdomen is soft, nontender nondistended. Active bowel sounds present all 4 abdominal quadrants. No guarding or rigidity. No organomegaly appreciated. Tolerating oral intake. - Genitourinary Genitourinary Comment(s): Continues to void. - Integumentary Integumentary Comment(s): Skin is warm and dry. No clubbing or cyanosis is present. No rash or abnormal pigmentation is present. - Neurologic Neurologic: Present: CNII-XII intact - Musculoskeletal Musculoskeletal: Present: gait normal, strength equal bilaterally - Psychiatric Psychiatric: Present: A&O x's 3, appropriate affect, intact judgment & insight - Allied health notes Allied health notes reviewed: nursing - Labs CBC & Chem 7: 02/01/20 11:06 02/01/20 18:21 Labs: Microbiology - Last 24 Hours (Table) 02/01/20 Unknown Nasal Screen MRSA/MSSA - Final Nasal Swab Staphylococcus aureus,Not MRSA Assessment and Plan Assessment: 1. Symptomatic multivessel coronary artery disease 2. Shortness of breath on exertion 3. History of hypertension 4. History of prostate cancer status post prostatectomy at age 47 5. Questionable left upper lobe lung nodule on recent chest x-ray from 01/22/2020 6. Osteoarthritis Plan: 1. Continue to optimize medical management with aspirin, statin and beta hannah. 2. preoperative teaching reinforced with the patient on myocardial revascularization surgery and his questions were answered to the best my ability. 3. He is scheduled for myocardial revascularization surgery on 02/05/2020, with left internal mammary artery, left radial artery endoscopic harvest, endoscopic greater saphenous vein harvest and intraoperative transesophageal echocardiogram to be performed by Dr. Fabiola Fraire. 4. Encourage use of his incentive spirometry 10 times every hour while awake. 5. His STS risk score has been calculated in discussed with the patient by Dr. Fabiola Fraire. 6. Medical management other comorbidities per primary care service. 7. GI and DVT prophylaxis. 8. More recommendations to follow based on patient's clinical course. Time with Patient: Greater than 30
--- NOTE | 2020-02-03 16:24 | P.PN ---
Subjective Progress Note Date: 02/03/20 Principal diagnosis: The patient is seen today 02/03/2020 in follow-up on the regular medical floor. He had been having complaints of chest pain recently and was here on January 31 as scheduled for a stress test which was strongly positive. From there the patient was admitted and had undergone cardiac catheterization. He was found to have a 90% occlusion of the proximal LAD, 60-70% occlusion of the distal LAD, 99% occlusion of the OM1 and 100% occlusion of the RCA. The plan is for coronary artery revascularization early this week. Really, he is resting quite comfortably in bed. Awake and alert in no acute distress. No further chest discomfort. No palpitations. No shortness of breath cough or congestion. His FEV1 value is 85% of predicted. He is currently achieving 5000 mL on the incentive spirometer. Objective - Vital Signs Vital signs: Vital Signs Temp 98.5 F 02/03/20 14:47 Pulse 64 02/03/20 14:47 Resp 16 02/03/20 14:47 BP 138/74 02/03/20 14:47 Pulse Ox 97 02/03/20 14:47 Intake & Output 02/02/20 02/03/20 02/03/20 18:59 06:59 18:59 Intake Total 250 Balance 250 Intake: Oral 250 Other: Voiding Method Toilet Toilet Toilet # Voids 3 1 2 - Exam GENERAL EXAM: Alert, pleasant 59-year-old gentleman, on room air comfortable in no apparent distress. HEAD: Normocephalic. EYES: Normal reaction of pupils, equal size. NOSE: Clear with pink turbinates. THROAT: No erythema or exudates. NECK: No masses, no JVD. CHEST: No chest wall deformity. LUNGS: Equal air entry with no crackles, wheeze, rhonchi or dullness. CVS: S1 and S2 normal with no audible murmur, regular rhythm. ABDOMEN: No hepatosplenomegaly, normal bowel sounds, no guarding or rigidity. SPINE: No scoliosis or deformity SKIN: No rashes CENTRAL NERVOUS SYSTEM: No focal deficits, tone is normal in all 4 extremities. EXTREMITIES: There is no peripheral edema. No clubbing, no cyanosis. Peripheral pulses are intact. - Labs CBC & Chem 7: 02/01/20 11:06 02/01/20 18:21 Labs: Microbiology - Last 24 Hours (Table) 02/01/20 Unknown Nasal Screen MRSA/MSSA - Final Nasal Swab Staphylococcus aureus,Not MRSA Assessment and Plan Assessment: 1 Exertional chest pain in a patient found to have a 90% occlusion of the proximal LAD, 60-70% occlusion of the distal LAD, 99% occlusion of the OM1 and 100% occlusion of the RCA. The plan is for coronary artery revascularization early this week. 2 hypertension 3 Osteoarthritis 4 Prostate cancer status post prostatectomy at age 47 5 Family history of coronary artery disease Plan: The patient was seen and evaluated by Dr. Pate Currently stable from the pulmonary standpoint FEV1 value 85% of predicted Plan is for surgery early this week We'll continue to follow I, the cosigning physician, performed a history & physical examination of the pa tient. Lungs sounds are clear. Maintaining good O2 saturations in the 90s on room air. I discussed the assessment and plan of care with my nurse practitioner, Elizabeth Palomares. I attest to the above note as dictated by her.
[2020-02-03] MEDS: ATORVASTATIN 80 MG TAB PO SCH (21:41)
[2020-02-04] MEDS: HEPARIN SODIUM,PORCINE 5,000 UNIT/ML 1 ML VIAL SQ SCH ×4 (00:36→23:50)
[2020-02-04] MEDS: PANTOPRAZOLE 40 MG TABLET PO SCH (06:33)
[2020-02-04 07:11] LABS: HCT 43.2 % (39.0-53.0); HGB 14.6 gm/dL (13.0-17.5); MCH 30.9 pg (25.0-35.0); MCHC 33.7 g/dL (31.0-37.0); MCV 91.7 fL (80.0-100.0); Mean Platelet Volume 7.2; Platelet Count 231 k/uL (150-450); RBC 4.71 m/uL (4.30-5.90); RDW 12.4 % (11.5-15.5); WBC 5.9 k/uL (3.8-10.6)
[2020-02-04 07:24] LABS: African American GFR (CKD) >90 (>60 ml/min/1.73 sqM); Anion Gap 5 mmol/L; Blood Urea Nitrogen 19 mg/dL (9-20); Calcium 9.8 mg/dL (8.4-10.2); Carbon Dioxide 30 mmol/L (22-30); Chloride 103 mmol/L (98-107); Glucose 99 mg/dL (74-99); Non-African American GFR(CKD) 83 (>60 ml/min/1.73 sqM); Potassium 4.3 mmol/L (3.5-5.1); Sodium 138 mmol/L (137-145)
--- NOTE | 2020-02-04 09:13 | P.PN ---
<Denton Albarran - Last Filed: 02/04/20 09:07> Subjective Progress Note Date: 02/04/20 Principal diagnosis: Symptomatic multivessel coronary artery disease. Past medical history significant for hypertension, osteoarthritis, prostate cancer status post prostatectomy at age 47, family history of early onset coronary artery disease with his grandfather being diagnosed in his early 40s with myocardial infarction and coronary artery disease. The patient was seen in follow-up today on 02/04/2020 at his bedside on the cardiac observation unit. The patient is currently up ambulating in his room and denies any complaints of shortness of breath, chest pressure or pain. He remains hemodynamically stable and is on no inotropic or pressor support. Preoperative teaching for myocardial revascularization surgery reinforced with the patient and his questions were answered to the best viability. Oxygen saturation are 98% on room air and he is achieving 5000 mL on his incentive spirometry. His nasal swab result was positive for Staphylococcus aureus, not MRSA and he is receiving mupirocin nasal ointment twice a day. He is scheduled for myocardial revascularization surgery to be performed by Dr. Fabiola Fraire tomorrow 02/05/2020. Objective - Vital Signs Vital signs: Vital Signs Temp 97.5 F L 02/04/20 08:23 Pulse 78 02/04/20 08:23 Resp 16 02/04/20 08:23 BP 135/90 02/04/20 08:23 Pulse Ox 94 L 02/04/20 08:23 Intake & Output 02/03/20 02/04/20 02/04/20 18:59 06:59 18:59 Intake Total 250 Balance 250 Intake: Oral 250 Other: Voiding Method Toilet Toilet # Voids 2 2 - Constitutional General appearance: Present: average body habitus, cooperative, no acute distress - EENT Eyes: Present: normal appearance. Absent: scleral icterus ENT: Present: hearing grossly normal - Neck Details: Neck is supple, no JVD, no lymphadenopathy. - Respiratory Details: Lung sounds are essentially clear throughout. No wheezes, rhonchi or crackles. Respirations are symmetrical and nonlabored. Oxygen saturation is 98% on room air. Achieving 5000 mL on his incentive spirometry. - Cardiovascular Details: Regular rhythm and rate. S1 and S2 present, negative for S3, gallop or murmur. No edema present. - Gastrointestinal Gastrointestinal Comment(s): Abdomen is soft, nontender and nondistended. Active bowel sounds present in all 4 abdominal quadrants. No guarding or rigidity. No organomegaly appreciated. Tolerating oral intake. - Genitourinary Genitourinary Comment(s): Continues to void. - Integumentary Integumentary Comment(s): Skin is warm and dry. No clubbing or cyanosis is present. No rash or abnormal pigmentation is present. - Neurologic Neurologic: Present: CNII-XII intact - Musculoskeletal Musculoskeletal: Present: gait normal, strength equal bilaterally - Psychiatric Psychiatric: Present: A&O x's 3, appropriate affect, intact judgment & insight - Allied health notes Allied health notes reviewed: nursing - Labs CBC & Chem 7: 02/04/20 06:28 02/04/20 06:28 Labs: Microbiology - Last 24 Hours (Table) 02/01/20 Unknown Nasal Screen MRSA/MSSA - Final Nasal Swab Staphylococcus aureus,Not MRSA Assessment and Plan Assessment: 1. Symptomatic multivessel coronary artery disease 2. Shortness of breath on exertion 3. History of hypertension 4. History of prostate cancer status post prostatectomy at age 47 5. Questionable left upper lobe lung nodule on recent chest x-ray from 01/22/2020 6. Osteoarthritis Plan: 1. Continue to optimize medical management with aspirin, statin and beta hannah. 2. preoperative teaching reinforced with the patient on myocardial revascularization surgery and his questions were answered to the best my ability. 3. He is scheduled for myocardial revascularization surgery tomorrow 02/05/2020, with left internal mammary artery, left radial artery endoscopic harvest, endoscopic greater saphenous vein harvest and intraoperative transesophageal echocardiogram to be performed by Dr. Fabiola Fraire. 4. Encourage use of his incentive spirometry 10 times every hour while awake. 5. His STS risk score has been calculated in discussed with the patient by Dr. Fabiola Fraire. 6. Medical management other comorbidities per primary care service. 7. GI and DVT prophylaxis. 8. Nothing by mouth after midnight. 9. More recommendations to follow based on patient's clinical course. Nurse practitioner note has been reviewed by the physician. Signing provider agrees with the above documented findings, assessment and plan of care. Time with Patient: Greater than 30 <Fabiola Fraire - Last Filed: 02/04/20 16:14> Objective - Vital Signs Vital signs: Vital Signs Temp 97.9 F 02/04/20 14:55 Pulse 63 02/04/20 14:55 Resp 16 02/04/20 14:55 BP 118/75 02/04/20 14:55 Pulse Ox 98 02/04/20 14:55 Intake & Output 02/03/20 02/04/20 02/04/20 18:59 06:59 18:59 Intake Total 250 450 Balance 250 450 Intake: Oral 250 450 Other: Voiding Method Toilet Toilet # Voids 2 2 2 - Labs CBC & Chem 7: 02/04/20 06:28 02/04/20 06:28 Labs: Abnormal Lab Results - Last 24 Hours (Table) 02/04/20 Range/Units 06:28 Crossmatch See Detail Assessment and Plan Plan: Patient seen and examined. Agree with above.
[2020-02-04] MEDS: ASPIRIN 81 MG PO SCH (09:14)
[2020-02-04] MEDS: METOPROLOL TARTRATE 12.5 MG TAB PO SCH ×2 (09:14→22:00)
[2020-02-04] MEDS: MUPIROCIN 2% OINT 22 GM TUBE NASAL SCH ×2 (09:15→22:25)
--- NOTE | 2020-02-04 09:15 | P.PN ---
Subjective This is a pleasant 59-year-old male past medical history significant for hypertension and dyslipidemia. He underwent heart catheterization revealing severe triple vessel coronary artery disease. He is scheduled to undergo bypass grafting tomorrow. He is seen and examined up ambulating in the room. He has no symptoms of chest discomfort, shortness of breath, dizziness or palpitations. Blood pressure 135/90 heart rate 78 afebrile maintaining oxygen saturation on room air. Currently maintained on aspirin 81 mg daily, atorvastatin 80 mg daily and Lopressor 12.5 mg twice a day. GENERAL: Well-appearing, well-nourished and in no acute distress. NECK: Supple without JVD or thyromegaly. LUNGS: Breath sounds clear to auscultation bilaterally. Respiration equal and unlabored. No wheezes, rales or rhonchi. HEART: Regular rate and rhythm without murmurs, rubs or gallops. S1 and S2 heard. EXTREMITIES: Normal range of motion, no edema. No clubbing or cyanosis. Peripheral pulses intact. ASSESSMENT Triple vessel coronary artery disease Hypertension Dyslipidemia PLAN Bypass grafting scheduled for tomorrow. Continue current medical regimen. Encourage incentive spirometer use. We will continue to follow and make recommendations accordingly. Nurse Practitioner note has been reviewed, I agree with a documented findings and plan of care. Patient was seen and examined. Objective - Vital Signs Vital signs: Vital Signs Temp 97.5 F L 02/04/20 08:23 Pulse 78 02/04/20 08:23 Resp 16 02/04/20 08:23 BP 135/90 02/04/20 08:23 Pulse Ox 94 L 02/04/20 08:23 Intake & Output 02/03/20 02/04/20 02/04/20 18:59 06:59 18:59 Intake Total 250 Balance 250 Intake: Oral 250 Other: Voiding Method Toilet Toilet # Voids 2 2 - Labs CBC & Chem 7: 02/04/20 06:28 02/04/20 06:28 Labs: Microbiology - Last 24 Hours (Table) 02/01/20 Unknown Nasal Screen MRSA/MSSA - Final Nasal Swab Staphylococcus aureus,Not MRSA
--- NOTE | 2020-02-04 17:23 | P.PN ---
Subjective Progress Note Date: 02/04/20 On 02/04/2020, the patient is doing well. No specific complaints. The patient has multivessel coronary artery disease and the patient is awaiting a past surgical to be done early tomorrow morning. Is using incentive spirometer. No chest pain. No cough or sputum production. His FEV1 is order of 85% of predicted. Hemodynamically stable at this point in time. They carotid Doppler also showed no evidence of any hemodynamically significantly stenosis. The computed tomography scan of the chest showed no specific abnormalities. No evidence of hilar mass or pulmonary nodules. No emphysema. No significant calcification. Objective - Vital Signs Vital signs: Vital Signs Temp 97.9 F 02/04/20 14:55 Pulse 63 02/04/20 14:55 Resp 16 02/04/20 14:55 BP 118/75 02/04/20 14:55 Pulse Ox 98 02/04/20 14:55 Intake & Output 02/03/20 02/04/20 02/04/20 18:59 06:59 18:59 Intake Total 250 450 Balance 250 450 Intake: Oral 250 450 Other: Voiding Method Toilet Toilet # Voids 2 2 2 - Exam GENERAL EXAM: Alert, pleasant 59-year-old gentleman, on room air comfortable in no apparent distress. HEAD: Normocephalic. EYES: Normal reaction of pupils, equal size. NOSE: Clear with pink turbinates. THROAT: No erythema or exudates. NECK: No masses, no JVD. CHEST: No chest wall deformity. LUNGS: Equal air entry with no crackles, wheeze, rhonchi or dullness. CVS: S1 and S2 normal with no audible murmur, regular rhythm. ABDOMEN: No hepatosplenomegaly, normal bowel sounds, no guarding or rigidity. SPINE: No scoliosis or deformity SKIN: No rashes CENTRAL NERVOUS SYSTEM: No focal deficits, tone is normal in all 4 extremities. EXTREMITIES: There is no peripheral edema. No clubbing, no cyanosis. Peripheral pulses are intact. - Labs CBC & Chem 7: 02/04/20 06:28 02/04/20 06:28 Labs: Abnormal Lab Results - Last 24 Hours (Table) 02/04/20 Range/Units 06:28 Crossmatch See Detail Assessment and Plan Plan: 1 multivessel coronary artery disease with 90%occlusion of the proximal LAD, 60- 70% occlusion of the distal LAD, 99% occlusion of the OM1 and 100% occlusion of the RCA. The plan is for coronary artery revascularization bypass surgery that'll be done tomorrow. Currently free of any chest pain and the patient is hemodynamically stable. Preoperative medical evaluation was done 2 hypertension 3 prostate cancer 4 osteoarthritis Plan Condition is stable. Proceed with surgery tomorrow. Will be involved in managing the ventilator and performing routine postoperative pulmonary care on this patient. CAT scan of the chest was reviewed and there is no acute abnormalities. Spirometry showed an FEV1 of 85% of predicted.
[2020-02-04] MEDS: ATORVASTATIN 80 MG TAB PO SCH (21:59)
--- NOTE | 2020-02-04 23:16 | P.PN ---
Subjective Progress Note Date: 02/04/20 Patient seen post heart cath with triple-vessel disease currently awaiting open heart surgery scheduled for tomorrow. He has no current complaints. He is resting comfortably afebrile. Objective - Vital Signs Vital signs: Vital Signs Temp 97.9 F 02/04/20 14:55 Pulse 63 02/04/20 14:55 Resp 16 02/04/20 14:55 BP 118/75 02/04/20 14:55 Pulse Ox 98 02/04/20 14:55 Intake & Output 02/04/20 02/04/20 02/05/20 06:59 18:59 06:59 Intake Total 450 Balance 450 Intake: Oral 450 Other: Voiding Method Toilet # Voids 2 2 - Exam GENERAL: This is a -59 year-old in no apparent distress at the time of examination. Pleasant and cooperative. HEENT: Head is atraumatic, normocephalic. Pupils are equal, round, and reactive to light. Sclerae anicteric. Conjunctivae are clear. Mucus membranes of the mouth are moist. Neck is supple. RESPIRATORY: Clear to auscultation. No wheezes, rales, or rhonchi. No use of accessory muscles. Patient maintaining oxygen saturation greater than 92%. No chest wall tenderness is noted on palpation or with deep breathing. CARDIOVASCULAR: Regular rate and rhythm. S1 and S2 noted. No systolic or diastolic murmur auscultated. No JVD noted. No S3 or S4 noted. GASTROINTESTINAL: No distention noted. Abdomen soft and round. Normal active bowel sounds auscultated x 4 quadrants. No pain or tenderness noted upon palpation. INTEGUMENTARY: No cyanosis. No jaundice. No rashes noted. No cellulitis noted. EXTREMITIES: 2+ peripheral pulses. No evidence of peripheral edema. No calf tenderness noted. NEUROLOGIC: Cranial nerves II-XII intact. PSYCHIATRIC: Awake, alert, and oriented X 3. Appropriate affect. Intact judgement and insight. - Labs CBC & Chem 7: 02/04/20 06:28 02/04/20 06:28 Labs: Abnormal Lab Results - Last 24 Hours (Table) 02/04/20 Range/Units 06:28 Crossmatch See Detail Assessment and Plan (1) CAD (coronary artery disease) Current Visit: No Status: Acute Code(s): I25.10 - ATHSCL HEART DISEASE OF [place] CORONARY ARTERY W/O ANG PCTRS SNOMED Code(s): 99034497 Plan: Patient to undergo open heart surgery triple-vessel disease tomorrow is currently medically cleared for surgery
[2020-02-05] MEDS ORDERED: MANNITOL 25% 12.5 GM/50 ML VIAL IV ONE ×2 (05:00)
[2020-02-05] MEDS ORDERED: ATORVASTATIN 10 MG TAB PO ONE (05:00)
[2020-02-05] MEDS ORDERED: ceFAZolin 2 GM in SODIUM CHLORIDE 0.9% 30 ML IVPB ONE (05:00)
[2020-02-05] MEDS ORDERED: ASPIRIN 325 MG TAB PO ONE (05:00)
[2020-02-05] MEDS ORDERED: HEPARIN SODIUM 1,000 UN/ML (10ML VL) IV ONE (05:00)
[2020-02-05] MEDS ORDERED: MAGNESIUM SULFATE SYG 4.06 MEQ/ML SYRINGE IV ONE (05:00)
[2020-02-05] MEDS ORDERED: DILTIAZEM 125 MG in SODIUM CHLORIDE 0.9% 100 ML IV SCH (05:00)
[2020-02-05] MEDS ORDERED: ceFAZolin 2,000 MG in SODIUM CHLORIDE 0.9% 30 ML IVPB ONE (05:00)
[2020-02-05] MEDS ORDERED: CLEVIDIPINE BUTYRATE 25 MG in EMPTY BAG 1 BAG IV SCH ×2 (05:00→14:57)
[2020-02-05] MEDS ORDERED: PHENYLEPHRINE 10 MG/ML VIAL IV ONE (05:00)
[2020-02-05] MEDS ORDERED: CALCIUM CHLORIDE 100 MG/ML 10 ML SYRINGE IVP ONE (05:00)
[2020-02-05] MEDS ORDERED: NITROGLYCERIN-D5W PMX 50 MG in DEXTROSE/WATER 1 250ML.BAG IV SCH ×2 (05:00→14:57)
[2020-02-05] MEDS ORDERED: CHLORHEXIDINE GLUCONATE 15 ML CUP MUCOUS MEM ONE (05:00)
[2020-02-05] MEDS ORDERED: ceFAZolin 1,000 MG in SODIUM CHLORIDE 0.9% IRRIGATIO 1,000 ML IRRIGATION ONE (05:00)
[2020-02-05] MEDS ORDERED: DEXTROSE 5% IN WATER 1,000 ML with POTASSIUM CHLORIDE 110 MEQ, MAGNESIUM SULFATE 16 MEQ... IV SCH ×5 (05:00)
[2020-02-05] MEDS ORDERED: NITROGLYCERIN-D5W PMX 25 MG/250 ML BTL IV ONE (05:00)
[2020-02-05] MEDS ORDERED: METOPROLOL TARTRATE 12.5 MG TAB PO ONE (05:00)
[2020-02-05] MEDS ORDERED: SODIUM BICARB 8.4% 50 ML SYR (1 MEQ/ML) IV ONE (05:00)
[2020-02-05] MEDS ORDERED: NOREPINEPHRINE 4 MG in SODIUM CHLORIDE 0.9% 250 ML IV SCH (05:00)
[2020-02-05] MEDS ORDERED: HEPARIN SODIUM,PORCINE 5,000 UNIT in SODIUM CHLORIDE 0.9% 500 ML 500 ML IV ONE (05:00)
[2020-02-05] MEDS ORDERED: INSULIN REGULAR 100 UNIT in SODIUM CHLORIDE 0.9% 100 ML IV SCH (05:00)
[2020-02-05] MEDS ORDERED: PHENYLEPHRINE 40 MG in SODIUM CHLORIDE 0.9% 250 ML IV ONE (05:00)
[2020-02-05] MEDS ORDERED: PROTAMINE SULFATE 250 MG in EMPTY BAG 1 BAG IV ONE (05:00)
[2020-02-05] MEDS ORDERED: DEXTROSE 5% IN WATER 1,000 ML with POTASSIUM CHLORIDE 25 MEQ, SODIUM CHLORIDE 2.5MEQ/ML... IV SCH ×6 (05:00)
[2020-02-05] MEDS ORDERED: PROTAMINE SULFATE 10 MG/ML 25 ML VIAL IV ONE (05:00)
[2020-02-05] MEDS ORDERED: PAPAVERINE 360 MG in SODIUM CHLORIDE 0.9% 90 ML IV ONE ×2 (05:00→09:42)
[2020-02-05] MEDS ORDERED: ALBUMIN HUMAN 5% 500 ML in EMPTY BAG 1 BAG IVPB ONE ×6 (06:00)
[2020-02-05] MEDS ORDERED: ALBUMIN HUMAN 25% 50 ML in EMPTY BAG 1 BAG IVPB ONE (06:00)
[2020-02-05] MEDS ORDERED: TRANEXAMIC ACID 2,000 MG in SODIUM CHLORIDE 0.9% 80 ML IV ONE (06:00)
[2020-02-05] MEDS ORDERED: IV FLUID CONTINUATION 1,000 ML IV ONE (06:06)
[2020-02-05] MEDS ORDERED: LACTATED RINGERS 1,000 ML IV ONE (06:41)
[2020-02-05] MEDS ORDERED: PROPOFOL 10 MG/ML 20 ML VIAL IV ONE (07:27)
[2020-02-05] MEDS ORDERED: MAGNESIUM SULFATE 4 MEQ/ML 10ML VIAL ONE (07:27)
[2020-02-05] MEDS ORDERED: VECURONIUM 10 MG VIAL IV ONE (07:27)
[2020-02-05] MEDS ORDERED: ePHEDrine SULFATE/0.9% NACL/PF 50 MG/5 ML SYRINGE IV ONE (07:27)
[2020-02-05] MEDS ORDERED: fentaNYL (PF) 50 MCG/ML 50 ML VIAL ONE (07:27)
[2020-02-05] MEDS ORDERED: SODIUM CHLORIDE 0.9% 250 ML BAG ONE (07:27)
[2020-02-05] MEDS ORDERED: ALBUMIN HUMAN 5% (25gm) 500 ML VIAL IVPB ONE (07:27)
[2020-02-05] MEDS ORDERED: MIDAZOLAM 2 MG/2 ML VIAL ONE (07:27)
[2020-02-05] MEDS ORDERED: PHENYLEPHRINE-0.9% NACL SYG 1 MG/10 ML SYRINGE ONE (07:27)
[2020-02-05] MEDS ORDERED: CALCIUM CHLORIDE 100 MG/ML 10 ML SYRINGE ONE (07:27)
[2020-02-05] MEDS ORDERED: fentaNYL (PF) 50 MCG/ML 2 ML AMP ONE (07:27)
[2020-02-05] MEDS ORDERED: TRANEXAMIC ACID 1,000 MG/10 ML VIAL ONE (07:27)
[2020-02-05] MEDS ORDERED: HEPARIN SODIUM,PORCINE 10,000 UNIT/ML 1 ML VIAL ONE (07:27)
[2020-02-05] MEDS ORDERED: NITROGLYCERIN-D5W PMX 50 MG/250 ML BOTTLE IV ONE (07:27)
[2020-02-05] MEDS ORDERED: SUFentanil 50 MCG/ML 2ML AMP ONE (07:27)
[2020-02-05] MEDS ORDERED: LIDOCAINE 2% SYG (PF) 100 MG/5 ML ONE (07:27)
[2020-02-05 08:32] LABS: ABG Base Excess 0.7 mmol/L; ABG Glucose Whole Blood 102 mg/dL (75-99); ABG HCO3 25 mmol/L (21-25); ABG Hematocrit 38 % (34.0-46.0); ABG Ionized Calcium 4.7 mg/dL (4.5-5.3); ABG Lactic Acid Whole Blood 1.4 mmol/L (0.5-1.6); ABG Oxygen Saturation 99.6 % (94-97); ABG PCO2 36 mmHg (35-45); ABG PH 7.44 (7.35-7.45); ABG PO2 216 mmHg (83-108); ABG Potassium Whole Blood 3.9 mmol/L (3.4-4.5); ABG Sodium Whole Blood 139 mmol/L (135-146); ABG TCO2 26 mmol/L (19-24)
[2020-02-05] MEDS ORDERED: SODIUM CHLORIDE 0.9% 500 ML 500 ML with HEPARIN SODIUM,PORCINE 5,000 UNIT IV ONE ×2 (09:42)
[2020-02-05] MEDS ORDERED: ceFAZolin 1,000 MG in SODIUM CHLORIDE 0.9% 1,000 ML IRRIGATION ONE (09:42)
[2020-02-05 10:34] LABS: ABG Base Excess -0.9 mmol/L; ABG Glucose Whole Blood 111 mg/dL (75-99); ABG HCO3 25 mmol/L (21-25); ABG Hematocrit 34 % (34.0-46.0); ABG Ionized Calcium 4.7 mg/dL (4.5-5.3); ABG Lactic Acid Whole Blood 0.9 mmol/L (0.5-1.6); ABG Oxygen Saturation 99.8 % (94-97); ABG PCO2 44 mmHg (35-45); ABG PH 7.36 (7.35-7.45); ABG PO2 250 mmHg (83-108); ABG Potassium Whole Blood 3.9 mmol/L (3.4-4.5); ABG Sodium Whole Blood 140 mmol/L (135-146); ABG TCO2 26 mmol/L (19-24)
[2020-02-05 11:17] LABS: ABG Base Excess -0.5 mmol/L; ABG Glucose Whole Blood 119 mg/dL (75-99); ABG HCO3 24 mmol/L (21-25); ABG Hematocrit 32 % (34.0-46.0); ABG Ionized Calcium 4.6 mg/dL (4.5-5.3); ABG PCO2 38 mmHg (35-45); ABG PH 7.41 (7.35-7.45); ABG PO2 283 mmHg (83-108); ABG Potassium Whole Blood 3.9 mmol/L (3.4-4.5); ABG Sodium Whole Blood 139 mmol/L (135-146); ABG TCO2 25 mmol/L (19-24)
[2020-02-05 11:46] LABS: ABG Base Excess -0.4 mmol/L; ABG Glucose Whole Blood 115 mg/dL (75-99); ABG HCO3 25 mmol/L (21-25); ABG Hematocrit 28 % (34.0-46.0); ABG Ionized Calcium 4.3 mg/dL (4.5-5.3); ABG Lactic Acid Whole Blood 1.2 mmol/L (0.5-1.6); ABG PCO2 40 mmHg (35-45); ABG PH 7.39 (7.35-7.45); ABG PO2 345 mmHg (83-108); ABG Sodium Whole Blood 140 mmol/L (135-146); ABG TCO2 26 mmol/L (19-24)
[2020-02-05 12:18] LABS: ABG Glucose Whole Blood 186 mg/dL (75-99); ABG HCO3 24 mmol/L (21-25); ABG Hematocrit 25 % (34.0-46.0); ABG Ionized Calcium 4.3 mg/dL (4.5-5.3); ABG Lactic Acid Whole Blood 1.1 mmol/L (0.5-1.6); ABG PCO2 42 mmHg (35-45); ABG PH 7.37 (7.35-7.45); ABG PO2 340 mmHg (83-108); ABG Potassium Whole Blood 4.4 mmol/L (3.4-4.5); ABG Sodium Whole Blood 136 mmol/L (135-146); ABG TCO2 26 mmol/L (19-24)
[2020-02-05 12:44] LABS: ABG Glucose Whole Blood 192 mg/dL (75-99); ABG HCO3 24 mmol/L (21-25); ABG Hematocrit 25 % (34.0-46.0); ABG Ionized Calcium 4.3 mg/dL (4.5-5.3); ABG Lactic Acid Whole Blood 1.2 mmol/L (0.5-1.6); ABG PCO2 43 mmHg (35-45); ABG PH 7.37 (7.35-7.45); ABG PO2 291 mmHg (83-108); ABG Potassium Whole Blood 4.1 mmol/L (3.4-4.5); ABG Sodium Whole Blood 136 mmol/L (135-146); ABG TCO2 26 mmol/L (19-24)
[2020-02-05 13:15] LABS: ABG Base Excess -1.2 mmol/L; ABG Glucose Whole Blood 179 mg/dL (75-99); ABG HCO3 24 mmol/L (21-25); ABG Ionized Calcium 4.4 mg/dL (4.5-5.3); ABG Lactic Acid Whole Blood 1.8 mmol/L (0.5-1.6); ABG PCO2 44 mmHg (35-45); ABG PH 7.35 (7.35-7.45); ABG Potassium Whole Blood 4.3 mmol/L (3.4-4.5); ABG Sodium Whole Blood 137 mmol/L (135-146); ABG TCO2 26 mmol/L (19-24)
[2020-02-05] MEDS: ASPIRIN 81 MG PO SCH (14:06)
[2020-02-05] MEDS: HEPARIN SODIUM,PORCINE 5,000 UNIT/ML 1 ML VIAL SQ SCH ×2 (14:06→23:02)
[2020-02-05] MEDS: MUPIROCIN 2% OINT 22 GM TUBE NASAL SCH ×2 (14:06→21:05)
[2020-02-05] MEDS: PANTOPRAZOLE 40 MG TABLET PO SCH (14:06)
[2020-02-05] MEDS: METOPROLOL TARTRATE 12.5 MG TAB PO SCH ×2 (14:06→21:54)
[2020-02-05 14:20] LABS: ABG Base Excess -0.9 mmol/L; ABG HCO3 24 mmol/L (21-25); ABG Hematocrit 28 % (34.0-46.0); ABG Ionized Calcium 4.6 mg/dL (4.5-5.3); ABG Oxygen Saturation 99.7 % (94-97); ABG PCO2 37 mmHg (35-45); ABG PH 7.41 (7.35-7.45); ABG PO2 186 mmHg (83-108); ABG Potassium Whole Blood 3.3 mmol/L (3.4-4.5); ABG Sodium Whole Blood 139 mmol/L (135-146); ABG TCO2 25 mmol/L (19-24)
[2020-02-05 14:49] LABS: ABG Glucose Whole Blood 84 mg/dL (75-99)
[2020-02-05 14:49] LABS: ABG Hematocrit 24 % (34.0-46.0); ABG PO2 >420 mmHg (83-108)
[2020-02-05 14:50] LABS: ABG Lactic Acid Whole Blood 1.6 mmol/L (0.5-1.6)
[2020-02-05] MEDS ORDERED: AMIODARONE 360 MG in DEXTROSE 5% IN WATER 200 ML IV PRN ×2 (14:57)
[2020-02-05] MEDS ORDERED: DEXTROSE 5% IN WATER 100 ML with AMIODARONE 150 MG IV PRN (14:57)
[2020-02-05] MEDS ORDERED: Magnesium Replacement Protocol 1 EACH MISC MISCELLANE PRN (14:57)
[2020-02-05] MEDS ORDERED: IPRATROPIUM-ALBUTEROL 3 ML NEB INHALATION PRN (14:57)
[2020-02-05] MEDS ORDERED: Phosphorus Replacement Protoco 1 EACH MISC MISCELLANE PRN (14:57)
[2020-02-05] MEDS ORDERED: BENZOCAINE/MENTHOL LOZENG 1 EACH LOZENGE MUCOUS MEM PRN (14:57)
[2020-02-05] MEDS ORDERED: CALCIUM GLUCONATE 2 GM in SODIUM CHLORIDE 0.9% 100 ML IVPB PRN (14:57)
[2020-02-05] MEDS ORDERED: Potassium Replacement Protocol 1 EACH MISC MISCELLANE PRN (14:57)
[2020-02-05] MEDS ORDERED: ONDANSETRON 4 MG/2 ML VIAL IVP PRN (14:57)
[2020-02-05] MEDS ORDERED: AMIODARONE 300 MG in DEXTROSE 5% IN WATER 250 ML IV PRN ×2 (14:57)
[2020-02-05] MEDS: SODIUM CHLORIDE 0.9% 1,000 ML IV SCH (15:00)
[2020-02-05 15:20] LABS: Basophils % (A) 1 %; Eosinophils % (A) 1 %; HCT 22.1 % (39.0-53.0); Lymphocytes # (A) 0.8 k/uL (1.0-4.8); Lymphocytes % (A) 14 %; MCH 30.8 pg (25.0-35.0); MCHC 33.6 g/dL (31.0-37.0); MCV 91.7 fL (80.0-100.0); Mean Platelet Volume 10.2; Monocytes # (A) 0.3 k/uL (0-1.0); Monocytes % (A) 5 %; Neutrophils # (A) 4.6 k/uL (1.3-7.7); Neutrophils % (A) 79 %; RBC 2.41 m/uL (4.30-5.90); RDW 12.4 % (11.5-15.5); WBC 5.8 k/uL (3.8-10.6)
[2020-02-05 15:24] LABS: Ionized Calcium 4.8 mg/dL (4.5-5.3)
[2020-02-05 15:25] LABS: Glucose,Whole Blood 108 mg/dL (75-99)
[2020-02-05 15:27] LABS: HGB 7.4 gm/dL (13.0-17.5); Platelet Count 81 k/uL (150-450)
[2020-02-05 15:33] LABS: INR 1.4 (<1.2); Partial Thromboplastin Time 37.8 sec (22.0-30.0); Prothrombin Time 13.6 sec (9.0-12.0)
[2020-02-05 15:37] LABS: ALT 14 U/L (4-49); AST 32 U/L (17-59); African American GFR (CKD) >90 (>60 ml/min/1.73 sqM); Albumin 2.5 g/dL (3.5-5.0); Alkaline Phosphatase 25 U/L (38-126); Anion Gap 4 mmol/L; Blood Urea Nitrogen 13 mg/dL (9-20); Calcium 7.8 mg/dL (8.4-10.2); Carbon Dioxide 22 mmol/L (22-30); Chloride 111 mmol/L (98-107); Glucose 100 mg/dL (74-99); Magnesium 2.5 mg/dL (1.6-2.3); Non-African American GFR(CKD) >90 (>60 ml/min/1.73 sqM); Potassium 3.6 mmol/L (3.5-5.1); Sodium 137 mmol/L (137-145); Total Bilirubin 0.3 mg/dL (0.2-1.3)
--- NOTE | 2020-02-05 15:55 | XR ---
EXAMINATION TYPE: XR chest 1V portable DATE OF EXAM: 02/05/2020 COMPARISON: Prior chest x-ray 01/22/2020 HISTORY: Postop cardiac surgery TECHNIQUE: Single frontal view of the chest is obtained. FINDINGS: Endotracheal tube, NG tube, left chest tube, right chest tube, median sternal drains, righ t jugular central venous catheter are overlying appropriate positions, patient is post median sternot beulah and left atrial appendage clipping placement. There is no sizable pneumothorax. Lung volumes are low. Patchy basilar density is present. Heart size appears prominently possibly due to technique, rot ation. IMPRESSION: Expiratory rotated exam. Some subsegmental atelectatic changes are suspected.
[2020-02-05 16:09] LABS: Glucose,Whole Blood 113 mg/dL (75-99)
[2020-02-05 16:34] LABS: Allen Test Performed? Yes
[2020-02-05 16:35] LABS: ABG Base Excess -0.9 mmol/L; ABG HCO3 23 mmol/L (21-25); ABG PCO2 32 mmHg (35-45); ABG PH 7.46 (7.35-7.45); ABG PO2 >400 mmHg (83-108); ABG TCO2 24 mmol/L (19-24)
[2020-02-05] MEDS: ACETAMINOPHEN IV (For NPO) 1,000 MG in EMPTY BAG 1 BAG IVPB SCH ×2 (16:41→21:07)
[2020-02-05 17:08] LABS: Glucose,Whole Blood 145 mg/dL (75-99)
[2020-02-05] MEDS: POTASSIUM CHLORIDE 10 MEQ in WATER FOR INJECTION 1 100ML.BAG IVPB SCH ×2 (17:09→18:16)
--- NOTE | 2020-02-05 17:27 | OP ---
OPERATIVE REPORT DATE OF THE SURGERY: 02/05/2020. SURGEON: Dr. Fabiola Fraire. SUPERVISOR TYPE PHOTOGRAPHY: Velasquez Albarran and Adan Todd. PREOPERATIVE DIAGNOSIS: Unstable angina with triple-vessel coronary artery disease with chronically occluded collateralized right coronary artery, overall preserved systolic function, hypertension, smoking. POSTOPERATIVE DIAGNOSIS: Unstable angina with triple-vessel coronary artery disease with chronically occluded collateralized right coronary artery, overall preserved systolic function, hypertension, smoking with diffuse coronary artery disease. PROCEDURE: 1. Triple coronary artery bypass grafting using the left internal mammary artery to the left anterior descending artery, the left radial artery from the aorta to the obtuse marginal artery, reverse saphenous vein graft from the aorta to the right coronary artery. 2. Exclusion of left atrial appendage using a 35 mm AtriClip. 3. Intraoperative transesophageal echocardiogram and epiaortic scanning for endoscopic harvesting of the left radial artery and the left greater saphenous vein. 4. Graft flow measurements using the Lumenseim system. INDICATION FOR SURGERY: Patient is a 59-year-old gentleman with a history of hypertension who has been complaining of dyspnea on exertion as well as some chest tightness over the last several weeks. Workup included cardiac catheterization that showed a totally occluded collateralized right coronary artery with significant disease of the LAD which has also some diffuse disease distally and subtotal stenosis of a large obtuse marginal artery. His 2D echo showed overall preserved systolic function and no significant mitral valve regurgitation. The patient was kept in the hospital and is undergoing today cardiac surgery with coronary bypass grafting planned. The SDS risk was discussed with him. He understood it and agreed to proceed. DESCRIPTION OF THE PROCEDURE: The patient in supine position, right internal jugular and [place]-Mayela catheter and a right radial arterial line were placed. He had normal PA pressure and good cardiac index. Subsequently, he was brought to the operating room where general endotracheal anesthesia was induced uneventfully. Felipe catheter was inserted. The chest, abdomen, both lower extremity and the left upper extremity were prepped and draped using ChloraPrep. Ioban was used to cover the skin. Transesophageal echocardiogram confirmed the preoperative finding of overall preserved function with some inferior hypokinesia and no significant valvular abnormality . Midline sternotomy was performed and bone seal was used. Both pleura end up being open. The right pleura was drained with a 19-Salvadorean Boone drain as well as the left pleura. The left hemisternum was elevated and the left internal mammary artery was harvested in a somewhat skeletonized fashion. It was quite plastered to the chest wall. However, it was harvested intact. The patient was given 5000 units of heparin and the mammary artery was clipped distally and then transected had an excellent pulsatile flow in it. In the same setting, the left radial artery was harvested endoscopically. Initially it was exposed at the wrist and clamping trial revealed preserved signal in the left index O2 saturation probe. The rest of the harvesting was completed and the forearm incision was closed over a drain. The radial artery was prepared by incising the fascia all along its volar aspect and clipping all its branches. It was of excellent quality around 3.5 mm in diameter. Also in the same setting, the left greater saphenous vein was harvested just from below knee to groin level. It was of relatively fair quality around 4 mm in diameter. The leg incision was closed over a drain also. Mediastinal fat was transected between 2 ties and epiaortic scanning revealed normal ascending aorta. Pericardium was opened in an inverted T-fashion and a pericardial crater was created. Findings included normal soft aorta, normal size heart and evidence of diffuse coronary artery disease that was visible. After systemic heparinization, after placement of respective pledgeted pursestring, aortic cannulation with a 21-Salvadorean soft flow cannula and venous cannulation with a dual stage 2937 cannula via the right atrial appendage was performed. Antegrade as well as retrograde cardioplegia catheter were placed. Cardiopulmonary bypass was initiated and patient temperature was allowed to drift down to 34 degrees Celsius. The heart empty and beating we looked at the target. At the inferior wall, the PDA was small. For that reason, I dissected the right coronary artery at its bifurcation and while it had a plaque at that level, it was soft and that will be the site for bypass. The LAD was diffusely diseased distally and one area of soft anterior wall was selected. Looking at the lateral wall, the obtuse marginal artery had some intermediate skin disease in it and picked one area with soft wall for bypass. Aorta was clamped and during aortic clamping myocardial protection was achieved. An initial dose of 800 mL of antegrade cold blood cardioplegia with adequate arrest at around 200 mL followed by dose of retrograde cold blood cardioplegia. All subsequent doses were given retrograde as well as some antegrade especially after constructing the vein graft of the right coronary artery proximally to the aorta. We started by excluding the left atrial appendage with a 35 mm AtriClip deployed at its base. The first distal anastomosis was between a segment of vein and the 1.75 mm thickened wall right coronary artery which was opened into the proximal aspect of the PDA and the anastomosis was completed using Prolene 7-0 in continuous fashion. At this point, we completed the proximal anastomosis of this vein to the aorta by punching a button of 4 mm and completed anastomosis using a running Prolene 6 0. The second distal anastomosis was to the radial artery and the 2 mm obtuse marginal artery and in the same area. However, that artery had some diffuse disease in it. The anastomosis was completed using Prolene 7-0 in continuous fashion. The third and last distal anastomosis were between the left internal mammary artery, which was thin-walled around 1.7 mm in diameter and 1.5 mm thin-walled left anterior descending artery which was opened. I inserted a 1 mm shunt to better define the thin edges and the anastomosis was completed. The shunt was removed before completing the anastomosis. The mammary veins were affixed to the epicardium on either side of the artery with Prolene 6 0 sutures. Satisfied with the distal anastomosis, rewarming was started as we punched another button on the lateral aspect of the left side of the aorta and performed the proximal anastomosis of the radial artery using Prolene 7-0 in continuous fashion. The patient was given lidocaine and magnesium. De-airing maneuvers were done and with the patient in Trendelenburg position, we unclamped the aorta. The patient regained spontaneous sinus rhythm. After around 15 minutes of reperfusion and after preliminary graft flow measurements showing patent graft we were able to wean off cardioplegia bypass without the need of any inotropic support. He required 1 bolus of Federico-Synephrine to help the blood pressure. Cardiac index was 2.7. YANET showed improved inferior wall function. At this point, we proceeded at a formal graft flow measurements using a 4 mm probe and the [facility]-Stim system. The flow into the vein to the right coronary artery was 156 mL/minute, pulsatility index of 0.7 and diastolic filling of 62% showing excellent functioning graft. The flow into the radial artery to the obtuse marginal artery was 176 mL/minute, pulsatility index of 0.6, diastolic filling of 57% showing excellent functioning graft. The flow into the GONZALEZ to the LAD was 71 mL/minute, pulsatility index of 3, diastolic filling of 58% also showing excellent functioning graft. With that,. all pump suckers were stopped. This test dose and full dose protamine were given. Decannulation followed. The antegrade cardioplegia site required reinforcement with a running 5-0 Prolene. Two monopolar atrial pacing wires were affixed to the respective pursing of the right atrium. No ventricular pacing was placed. Two 19- Salvadorean Boone drain were left substernally. A groove was made in the left pleuropericardial fat to accommodate the mammary artery medial to the lung and away from the posterior sternal table. The pericardial fat and mediastinal fat were loosely approximated over the heart. After ensuring adequate hemostasis and hemodynamic and after correct sponge, instrument, and needle count, the sternum was closed using 6 [id number] pineal cable after interposing fibular between the sternal edges. Thorough irrigation of cefazolin followed. The rest of the closure proceeded in layers. Skin glue was applied. Patient did not receive any blood bank product but received 375 mL of Cell Saver blood. He was transferred to the ICU on low-dose nitroglycerin with excellent hemodynamics and normal EKG. MMODL / IJN: [id number] /
[2020-02-05] MEDS: INSULIN REGULAR 100 UNIT in SODIUM CHLORIDE 0.9% 100 ML IV SCH (17:33)
[2020-02-05 18:03] LABS: Glucose,Whole Blood 153 mg/dL (75-99)
[2020-02-05 18:16] LABS: Basophils # (A) 0.1 k/uL (0-0.2); Basophils % (A) 1 %; Eosinophils % (A) 0 %; Lymphocytes # (A) 1.2 k/uL (1.0-4.8); Lymphocytes % (A) 11 %; MCH 31.4 pg (25.0-35.0); MCHC 33.8 g/dL (31.0-37.0); Mean Platelet Volume 8.4; Monocytes # (A) 0.8 k/uL (0-1.0); Monocytes % (A) 7 %; Neutrophils # (A) 9.2 k/uL (1.3-7.7); Neutrophils % (A) 81 %; RDW 12.5 % (11.5-15.5); WBC 11.3 k/uL (3.8-10.6)
--- NOTE | 2020-02-05 18:39 | P.PN ---
Subjective Progress Note Date: 02/05/20 02/05/2020, I'm seeing this patient. In the intensive care unit. The patient underwent three-vessel bypass surgery including a GONZALEZ to LAD, SVG to RCA and left radial to OM. The patient is currently in the intensive care unit. He was brought in with some sedation with propofol. The patient was on a SIMV mode of ventilation with a tidal volume of 550 at the rate of 12 with a FiO2 of 100% and a PEEP of 5. The blood gases was noted. The chest x-ray was noted. The patient adequate expansion of both lungs and there was no evidence of any pneumothorax. Hemodynamically, the patient is a PA pressure of 27/13 with a cardiac output of 9.1 and an index of 4.2. The patient was on a nitroglycerin drip. The patient was hemodynamically stable. Output from the chest tubes showed that the patient had a total of 300 mL from the right chest tube, 140 mL from the mediastinum and 500 mL from the left chest tube. He is on a nitroglycerin drip for now. Hemodynamically stable. Adequate urine output. As the patient was taken off the sedation, the patient showed adequate weaning parameters. The patient was placed on a CPAP trial and the blood gases showed some acidosis with a pH of 7.24 with a pCO2 of 54 on the patient's aorta was 108. I think his acidosis was related to the patient's ongoing sedation. He was given more time and as the patient became more awake he was extubated and the patient showed adequate minute ventilation and adequate ability to generate enough tidal volumes above 400 mL. Accordingly, the patient was extubated. Objective - Vital Signs Vital signs: Vital Signs Temp 98.6 F 02/05/20 18:00 Pulse 98 02/05/20 18:00 Resp 28 H 02/05/20 18:00 BP 111/77 02/05/20 17:15 Pulse Ox 97 02/05/20 18:00 Intake & Output 02/04/20 02/05/20 02/05/20 18:59 06:59 18:59 Intake Total 450 100 599.607 Output Total 3520 Balance 450 100 -2920.393 Intake: IV 100 32 Intake, IV Titration 567.607 Amount ACETAMINOPHEN IV (For NPO 100 ) 1,000 mg In Empty Bag 1 bag @ 400 mls/hr IVPB Q6H LEANNE Rx#:[id number] Insulin Regular 100 unit 1.5 In Sodium Chloride 0.9% 100 ml @ Per Protocol IV .Q0M LEANNE Rx#:[id number] Nitroglycerin-D5w Pmx 50 6.0 mg In Dextrose/Water 1 250ml.bag @ 5 MCG/MIN 1.5 mls/hr IV .Q24H LEANNE Rx#: [id number] Potassium Chloride 10 meq 100 In Water For Injection 1 100ml.bag @ 100 mls/hr IVPB Q1H LEANNE Rx#: [id number] Sodium Chloride 0.9% 1, 200 000 ml @ 50 mls/hr IV . Q20H LEANNE Rx#:[id number] ceFAZolin 2 gm In Sodium 100 Chloride 0.9% 50 ml @ 100 mls/hr IVPB Q8HR LEANNE Rx# :[id number] propofoL 1,000 mg In 60.107 Empty Bag 1 bag @ Titrate IV .Q0M LEANNE Rx#: [id number] Oral 450 Output: Drainage 825 [address] x [address] 290 Urine 1695 Estimated Blood Loss 1000 Other: Voiding Method Toilet Toilet Indwelling Catheter # Voids 2 2 ABP, PAP, CO, CI - Last Documented Arterial Blood Pressure 126/67 Pulmonary Artery Pressure 43/23 Cardiac Output 9.1 Cardiac Index 4.2 - Exam GENERAL EXAM: the patient is currently a extubated to high flow nasal cannula. He is awake. Following commands and moving all 4 extremities without any major limitation. Prior to that, the patient was intubated. HEAD: Normocephalic. EYES: Normal reaction of pupils, equal size. NOSE: Clear with pink turbinates. THROAT: No erythema or exudates. NECK: No masses, no JVD.the patient has a right IJ Cordis with a [place]-Mayela catheter in place. CHEST: No chest wall deformity. LUNGS: Equal air entry with no crackles, wheeze, rhonchi or dullness.the sternum stable clean and intact. The patient has a right and the left pleural and the midsternal chest tube. No evidence of any air leak and and output from the chest tube has been noted. CVS: S1 and S2 normal with no audible murmur, regular rhythm. ABDOMEN: No hepatosplenomegaly, normal bowel sounds, no guarding or rigidity. SPINE: No scoliosis or deformity SKIN: No rashes CENTRAL NERVOUS SYSTEM: No focal deficits, tone is normal in all 4 extremities. EXTREMITIES: There is no peripheral edema. No clubbing, no cyanosis. Peripheral pulses are intact.the patient has a AIDEE drain in the left upper extremity. Otherwise, pulses in lower extremities are adequate and equal and symmetrical. - Labs CBC & Chem 7: 02/05/20 15:16 02/05/20 15:16 Labs: Abnormal Lab Results - Last 24 Hours (Table) 02/04/20 02/05/20 02/05/20 Range/Units 06:28 08:31 10:34 RBC (4.30-5.90) m/uL Hgb (13.0-17.5) gm/dL Hct (39.0-53.0) % Plt Count (150-450) k/uL Lymphocytes # (1.0-4.8) k/uL PT (9.0-12.0) sec INR (<1.2) APTT (22.0-30.0) sec ABG pH (7.35-7.45) ABG pCO2 (35-45) mmHg ABG pO2 216 H 250 H (83-108) mmHg ABG Total CO2 26 H 26 H (19-24) mmol/L ABG O2 Saturation 99.6 H 99.8 H (94-97) % ABG Hematocrit (34.0-46.0) % ABG Potassium (3.4-4.5) mmol/L ABG Ionized Calcium (4.5-5.3) mg/dL ABG Glucose 102 H 111 H (75-99) mg/dL ABG Lactic Acid (0.5-1.6) mmol/L Hemoglobin 12.2 L 10.9 L (13.0-17.5) gm/dL Chloride (98-107) mmol/L Glucose (74-99) mg/dL POC Glucose (mg/dL) (75-99) mg/dL Calcium (8.4-10.2) mg/dL Magnesium (1.6-2.3) mg/dL Alkaline Phosphatase (38-126) U/L Total Protein (6.3-8.2) g/dL Albumin (3.5-5.0) g/dL Arterial Blood Potassium (3.4-4.5) mmol/L Arterial Blood Glucose 102 H 111 H (75-99) mg/dL Crossmatch See Detail 02/05/20 02/05/20 02/05/20 Range/Units 11: 11:46 12:17 RBC (4.30-5.90) m/uL Hgb (13.0-17.5) gm/dL Hct (39.0-53.0) % Plt Count (150-450) k/uL Lymphocytes # (1.0-4.8) k/uL PT (9.0-12.0) sec INR (<1.2) APTT (22.0-30.0) sec ABG pH (7.35-7.45) ABG pCO2 (35-45) mmHg ABG pO2 283 H 345 H 340 H (83-108) mmHg ABG Total CO2 25 H 26 H 26 H (19-24) mmol/L ABG O2 Saturation 100.0 H 100.0 H 100.0 H (94-97) % ABG Hematocrit 32 L 28 L 25 L (34.0-46.0) % ABG Potassium (3.4-4.5) mmol/L ABG Ionized Calcium 4.3 L 4.3 L (4.5-5.3) mg/dL ABG Glucose 119 H 115 H 186 H (75-99) mg/dL ABG Lactic Acid (0.5-1.6) mmol/L Hemoglobin 10.4 L 9.3 L 8.1 L (13.0-17.5) gm/dL Chloride (98-107) mmol/L Glucose (74-99) mg/dL POC Glucose (mg/dL) (75-99) mg/dL Calcium (8.4-10.2) mg/dL Magnesium (1.6-2.3) mg/dL Alkaline Phosphatase (38-126) U/L Total Protein (6.3-8.2) g/dL Albumin (3.5-5.0) g/dL Arterial Blood Potassium (3.4-4.5) mmol/L Arterial Blood Glucose 119 H 115 H 186 H (75-99) mg/dL Crossmatch 02/05/20 02/05/20 02/05/20 Range/Units 12:43 13:15 14:20 RBC (4.30-5.90) m/uL Hgb (13.0-17.5) gm/dL Hct (39.0-53.0) % Plt Count (150-450) k/uL Lymphocytes # (1.0-4.8) k/uL PT (9.0-12.0) sec INR (<1.2) APTT (22.0-30.0) sec ABG pH (7.35-7.45) ABG pCO2 (35-45) mmHg ABG pO2 291 H >420 H 186 H (83-108) mmHg ABG Total CO2 26 H 26 H 25 H (19-24) mmol/L ABG O2 Saturation 100.0 H 100.0 H 99.7 H (94-97) % ABG Hematocrit 25 L 24 L 28 L (34.0-46.0) % ABG Potassium 3.3 L (3.4-4.5) mmol/L ABG Ionized Calcium 4.3 L 4.4 L (4.5-5.3) mg/dL ABG Glucose 192 H 179 H (75-99) mg/dL ABG Lactic Acid 1.8 H (0.5-1.6) mmol/L Hemoglobin 8.1 L 7.7 L 9.1 L (13.0-17.5) gm/dL Chloride (98-107) mmol/L Glucose (74-99) mg/dL POC Glucose (mg/dL) (75-99) mg/dL Calcium (8.4-10.2) mg/dL Magnesium (1.6-2.3) mg/dL Alkaline Phosphatase (38-126) U/L Total Protein (6.3-8.2) g/dL Albumin (3.5-5.0) g/dL Arterial Blood Potassium 3.3 L (3.4-4.5) mmol/L Arterial Blood Glucose 192 H 179 H (75-99) mg/dL Crossmatch 02/05/20 02/05/20 02/05/20 Range/Units 15:16 15:16 15:16 RBC 2.41 L (4.30-5.90) m/uL Hgb 7.4 L D (13.0-17.5) gm/dL Hct 22.1 L (39.0-53.0) % Plt Count 81 L D (150-450) k/uL Lymphocytes # 0.8 L (1.0-4.8) k/uL PT 13.6 H (9.0-12.0) sec INR 1.4 H (<1.2) APTT 37.8 H (22.0-30.0) sec ABG pH (7.35-7.45) ABG pCO2 (35-45) mmHg ABG pO2 (83-108) mmHg ABG Total CO2 (19-24) mmol/L ABG O2 Saturation (94-97) % ABG Hematocrit (34.0-46.0) % ABG Potassium (3.4-4.5) mmol/L ABG Ionized Calcium (4.5-5.3) mg/dL ABG Glucose (75-99) mg/dL ABG Lactic Acid (0.5-1.6) mmol/L Hemoglobin (13.0-17.5) gm/dL Chloride 111 H (98-107) mmol/L Glucose 100 H (74-99) mg/dL POC Glucose (mg/dL) (75-99) mg/dL Calcium 7.8 L (8.4-10.2) mg/dL Magnesium 2.5 H (1.6-2.3) mg/dL Alkaline Phosphatase 25 L (38-126) U/L Total Protein 4.0 L (6.3-8.2) g/dL Albumin 2.5 L (3.5-5.0) g/dL Arterial Blood Potassium (3.4-4.5) mmol/L Arterial Blood Glucose (75-99) mg/dL Crossmatch 02/05/20 02/05/20 02/05/20 Range/Units 15:24 15:46 16:07 RBC (4.30-5.90) m/uL Hgb (13.0-17.5) gm/dL Hct (39.0-53.0) % Plt Count (150-450) k/uL Lymphocytes # (1.0-4.8) k/uL PT (9.0-12.0) sec INR (<1.2) APTT (22.0-30.0) sec ABG pH 7.46 H (7.35-7.45) ABG pCO2 32 L (35-45) mmHg ABG pO2 >400 H (83-108) mmHg ABG Total CO2 (19-24) mmol/L ABG O2 Saturation 100.0 H (94-97) % ABG Hematocrit (34.0-46.0) % ABG Potassium (3.4-4.5) mmol/L ABG Ionized Calcium (4.5-5.3) mg/dL ABG Glucose (75-99) mg/dL ABG Lactic Acid (0.5-1.6) mmol/L Hemoglobin (13.0-17.5) gm/dL Chloride (98-107) mmol/L Glucose (74-99) mg/dL POC Glucose (mg/dL) 108 H 113 H (75-99) mg/dL Calcium (8.4-10.2) mg/dL Magnesium (1.6-2.3) mg/dL Alkaline Phosphatase (38-126) U/L Total Protein (6.3-8.2) g/dL Albumin (3.5-5.0) g/dL Arterial Blood Potassium (3.4-4.5) mmol/L Arterial Blood Glucose (75-99) mg/dL Crossmatch 02/05/20 02/05/20 Range/Units 17:06 17:58 RBC (4.30-5.90) m/uL Hgb (13.0-17.5) gm/dL Hct (39.0-53.0) % Plt Count (150-450) k/uL Lymphocytes # (1.0-4.8) k/uL PT (9.0-12.0) sec INR (<1.2) APTT (22.0-30.0) sec ABG pH (7.35-7.45) ABG pCO2 (35-45) mmHg ABG pO2 (83-108) mmHg ABG Total CO2 (19-24) mmol/L ABG O2 Saturation (94-97) % ABG Hematocrit (34.0-46.0) % ABG Potassium (3.4-4.5) mmol/L ABG Ionized Calcium (4.5-5.3) mg/dL ABG Glucose (75-99) mg/dL ABG Lactic Acid (0.5-1.6) mmol/L Hemoglobin (13.0-17.5) gm/dL Chloride (98-107) mmol/L Glucose (74-99) mg/dL POC Glucose (mg/dL) 145 H 153 H (75-99) mg/dL Calcium (8.4-10.2) mg/dL Magnesium (1.6-2.3) mg/dL Alkaline Phosphatase (38-126) U/L Total Protein (6.3-8.2) g/dL Albumin (3.5-5.0) g/dL Arterial Blood Potassium (3.4-4.5) mmol/L Arterial Blood Glucose (75-99) mg/dL Crossmatch Assessment and Plan Plan: 1 coronary artery bypass surgery. The patient underwent three-vessel bypass utilizing a GONZALEZ to LAD, saphenous vein graft RCA and radial to OM. The patient is currently postop day #0. Hemodynamically stable. Adequate cardiac output. On nitroglycerin drip regarding his radial artery grafts. 2 post thoracotomy, patient has extubated within 6 hours of arriving to the ICU. Chest x-ray was noted. Output from the chest tube of been noted. The patient has right pleural, left pleural and mediastinal chest tube. 3 coronary artery disease withmultivessel coronary artery disease with 90%occlusion of the proximal LAD, 60-70% occlusion of the distal LAD, 99% occlu sandra of the OM1 and 100% occlusion of the RCA. The plan is for coronary artery revascularization bypass surgery that'll be done tomorrow. Currently free of any chest pain and the patient is hemodynamically stable. Preoperative medical evaluation was done 4 hypertension 5 prostate cancer Plan Condition is stable. Patient is extubated to nasal cannula and will monitor the saturation with di gestive flow to maintain a saturation above 90% Monitor the output from the chest tubes Provide adequate pain control Provide the patient incentive spirometer monitor hemodynamics Repeat labs in a.m. Chest x-ray in a.m. We'll continue to follow critically care evaluation that was done in more than 30 minutes Time with Patient: Greater than 30
[2020-02-05] MEDS: IPRATROPIUM-ALBUTEROL 3 ML NEB INHALATION SCH ×3 (18:40→21:07)
[2020-02-05] MEDS: ALBUMIN HUMAN 5% 250 ML in EMPTY BAG 1 BAG IVPB PRN ×3 (18:45→22:01)
[2020-02-05 18:47] LABS: HGB 9.1 gm/dL (13.0-17.5); Platelet Count 161 k/uL (150-450)
[2020-02-05 18:48] LABS: ABG PCO2 54 mmHg (35-45); ABG PH 7.24 (7.35-7.45); ABG PO2 108 mmHg (83-108); Allen Test Performed? Yes
[2020-02-05 18:49] LABS: ABG HCO3 23 mmol/L (21-25)
[2020-02-05 19:05] LABS: Glucose,Whole Blood 157 mg/dL (75-99)
[2020-02-05 19:56] LABS: Glucose,Whole Blood 162 mg/dL (75-99)
[2020-02-05 20:59] LABS: Glucose,Whole Blood 141 mg/dL (75-99)
[2020-02-05 21:11] LABS: Basophils % (A) 0 %; Eosinophils % (A) 0 %; HCT 25.2 % (39.0-53.0); HGB 8.3 gm/dL (13.0-17.5); Lymphocytes # (A) 0.4 k/uL (1.0-4.8); Lymphocytes % (A) 4 %; MCH 30.6 pg (25.0-35.0); MCHC 33.1 g/dL (31.0-37.0); MCV 92.6 fL (80.0-100.0); Mean Platelet Volume 7.7; Monocytes # (A) 0.6 k/uL (0-1.0); Monocytes % (A) 6 %; Neutrophils # (A) 8.7 k/uL (1.3-7.7); Neutrophils % (A) 89 %; Platelet Count 150 k/uL (150-450); RBC 2.72 m/uL (4.30-5.90); RDW 12.9 % (11.5-15.5); WBC 9.7 k/uL (3.8-10.6)
[2020-02-05 21:54] LABS: Glucose,Whole Blood 124 mg/dL (75-99)
[2020-02-05 22:59] LABS: Glucose,Whole Blood 110 mg/dL (75-99)
[2020-02-05] MEDS: KETOROLAC 15 MG/ML 1 ML VIAL IVP SCH (23:02)
[2020-02-06 00:11] LABS: Glucose,Whole Blood 137 mg/dL (75-99)
[2020-02-06] MEDS: HYDROcodone/APAP 5-325MG 1 EACH TAB PO PRN ×2 (00:15→04:34)
[2020-02-06 01:08] LABS: Glucose,Whole Blood 126 mg/dL (75-99)
[2020-02-06 02:01] LABS: Glucose,Whole Blood 111 mg/dL (75-99)
[2020-02-06] MEDS ORDERED: HYDROcodone/APAP 5-325MG 1 EACH TAB PO PRN (02:09)
[2020-02-06 03:04] LABS: Glucose,Whole Blood 128 mg/dL (75-99)
[2020-02-06 04:02] LABS: Glucose,Whole Blood 128 mg/dL (75-99)
[2020-02-06 04:14] LABS: Basophils % (A) 0 %; Eosinophils % (A) 0 %; HCT 23.1 % (39.0-53.0); HGB 7.8 gm/dL (13.0-17.5); Lymphocytes # (A) 0.4 k/uL (1.0-4.8); Lymphocytes % (A) 6 %; MCH 31.4 pg (25.0-35.0); MCV 92.5 fL (80.0-100.0); Mean Platelet Volume 10.3; Monocytes # (A) 0.4 k/uL (0-1.0); Monocytes % (A) 6 %; Neutrophils # (A) 5.4 k/uL (1.3-7.7); Neutrophils % (A) 87 %; Platelet Count 114 k/uL (150-450); RDW 12.8 % (11.5-15.5); WBC 6.2 k/uL (3.8-10.6)
[2020-02-06 04:24] LABS: Ionized Calcium 4.9 mg/dL (4.5-5.3)
[2020-02-06 04:33] LABS: ALT 18 U/L (4-49); AST 43 U/L (17-59); African American GFR (CKD) >90 (>60 ml/min/1.73 sqM); Albumin 3.3 g/dL (3.5-5.0); Alkaline Phosphatase 30 U/L (38-126); Anion Gap 4 mmol/L; Blood Urea Nitrogen 14 mg/dL (9-20); Calcium 8.2 mg/dL (8.4-10.2); Carbon Dioxide 24 mmol/L (22-30); Chloride 109 mmol/L (98-107); Glucose 118 mg/dL (74-99); Magnesium 1.9 mg/dL (1.6-2.3); Non-African American GFR(CKD) >90 (>60 ml/min/1.73 sqM); Potassium 4.5 mmol/L (3.5-5.1); Sodium 137 mmol/L (137-145); Total Bilirubin 0.8 mg/dL (0.2-1.3)
[2020-02-06] MEDS: MAGNESIUM SULFATE-D5W PMX 1 GM in DEXTROSE/WATER 1 100ML.BAG IVPB SCH ×2 (04:44→06:54)
[2020-02-06 05:00] LABS: Glucose,Whole Blood 122 mg/dL (75-99)
[2020-02-06] MEDS: KETOROLAC 15 MG/ML 1 ML VIAL IVP SCH ×3 (05:29→18:18)
[2020-02-06] MEDS: ALBUMIN HUMAN 5% 250 ML in EMPTY BAG 1 BAG IVPB PRN ×2 (06:43→10:05)
[2020-02-06 06:49] LABS: Glucose,Whole Blood 147 mg/dL (75-99)
[2020-02-06] MEDS ORDERED: METOCLOPRAMIDE 5 MG/ML 2 ML VIAL IVP STA (06:51)
[2020-02-06] MEDS: PANTOPRAZOLE 40 MG TABLET PO SCH (07:07)
--- NOTE | 2020-02-06 07:36 | XR ---
EXAMINATION TYPE: XR chest 1V portable DATE OF EXAM: 02/06/2020 COMPARISON: Prior chest x-ray dated 02/05/2020 HISTORY: Postop cardiac surgery TECHNIQUE: Single frontal view of the chest is obtained. FINDINGS: Endotracheal tube and NG tube have been removed, patient is post median sternotomy and atr ial appendage clipping placement. Mediastinal drains, right jugular central venous catheter, bilatera l chest tubes remain in place. Lung volumes are low and the patient is rotated. Patchy basilar densit y persists, there is no evidence of pneumothorax or sizable effusion. Heart is stable. IMPRESSION: Interval extubation. Persistent basilar atelectatic changes, difficult to exclude minima l effusion
[2020-02-06] MEDS ORDERED: HYDROcodone/APAP 7.5-325MG 1 EACH TAB PO PRN (08:07)
[2020-02-06] MEDS: IPRATROPIUM-ALBUTEROL 3 ML NEB INHALATION SCH ×4 (08:09→19:21)
[2020-02-06] MEDS: CLOPIDOGREL 75 MG TAB PO SCH (08:10)
[2020-02-06] MEDS: ASPIRIN 325 MG TAB PO SCH (08:10)
[2020-02-06] MEDS: HEPARIN SODIUM,PORCINE 5,000 UNIT/ML 1 ML VIAL SQ SCH ×2 (08:10→16:25)
[2020-02-06] MEDS: MUPIROCIN 2% OINT 22 GM TUBE NASAL SCH ×2 (08:10→21:49)
[2020-02-06] MEDS: ATORVASTATIN 40 MG TAB PO SCH (08:10)
[2020-02-06] MEDS: HYDROcodone/APAP 7.5-325MG 1 EACH TAB PO PRN ×4 (08:15→21:48)
[2020-02-06] MEDS: METOPROLOL TARTRATE 12.5 MG TAB PO SCH ×2 (08:26→21:48)
[2020-02-06 08:27] LABS: Glucose,Whole Blood 146 mg/dL (75-99)
[2020-02-06] MEDS ORDERED: bisacodyL 10 MG SUPP RECTAL PRN (09:00)
[2020-02-06] MEDS ORDERED: PANTOPRAZOLE 40 MG/10 ML VIAL IVP SCH (09:00)
[2020-02-06] MEDS ORDERED: METOPROLOL TARTRATE 12.5 MG TAB PO SCH (09:00)
[2020-02-06] MEDS ORDERED: MAGNESIUM HYDROXIDE 2,400 MG/10 ML CUP PO PRN (09:00)
--- NOTE | 2020-02-06 09:07 | P.PN ---
Subjective Progress Note Date: 02/06/20 Principal diagnosis: Symptomatic multivessel coronary artery disease. Past medical history significant for hypertension, osteoarthritis, prostate cancer status post prostatectomy at age 47, family history of early onset coronary artery disease with his grandfather being diagnosed in his early 40s with myocardial infarction and coronary artery disease. POD #1 triple-vessel coronary artery bypass grafting using the left internal mammary artery to left anterior descending coronary artery, the left radial artery from the aorta to the obtuse marginal coronary artery, and a reverse greater saphenous vein graft from the aorta to the right coronary artery. Exclusion of left atrial appendage using a 35 mm Atriclip, endoscopic harvesting of the left radial artery and the left greater saphenous vein. Intraoperative transesophageal echocardiogram, epi-aortic scanning and graft flow measurements using the [employer] system. Postoperative acute blood loss anemia, an expected outcome, dilutional The patient was seen in follow-up today 02/06/2020 at his bedside in the intensi ve care unit. Currently he is sitting up to the bedside chair, he is awake, alert and oriented 3. Denies any complaints of shortness of breath although was complaining of some cramping to his left upper quadrant abdomen. Right IJ [place]Mayela catheter in place with current hemodynamic showing a cardiac output 4.9, cardiac index 2.3, PA pressures 18/8, CVP 5 mmHg. Oxygen saturation are 98% on 2 L nasal cannula and he is achieving less than 500 mL on his incentive spirometry due to his cramping to his abdomen as he is unable to take a big breath. Mediastinal left and right pleural chest tubes remain in place to low continuous wall suction -20 cm H2O. No air leak is present. Draining thin serosanguineous drainage. Left pleural chest tube drained 85 mL output in the last 8 hours, 650 mL output since surgery, right pleural chest tube with 150 mL output in the last 8 hours, 520 mL output since surgery, mediastinal chest tube with 10 mL output in the last 8 hours and 180 mL output since surgery. The patient was given 5% albumin 250 mL this morning for a blood pressure of 83/47 mmHg. Objective - Vital Signs Vital signs: Vital Signs Temp 98.2 F 02/05/20 19:00 Pulse 80 02/06/20 08:19 Resp 17 02/06/20 07:00 BP 110/7 02/05/20 20:30 Pulse Ox 99 02/06/20 07:00 Intake & Output 02/05/20 02/06/20 02/06/20 18:59 06:59 18:59 Intake Total 729.096 8950.953 579 Output Total 3610 1240 164 Balance -3010.393 363.953 415 Weight 94.3 kg Intake: IV 32 1176 579 Albumin Human 25% 50 ml 100 In Empty Bag 1 bag @ 100 mls/hr IVPB ONCE ONE Rx#: [id number] Albumin Human 5% 250 ml 250 500 In Empty Bag 1 bag @ 250 mls/hr IVPB Q1HR PRN Rx#: [id number] CO/CI 80 20 Magnesium Sulfate-D5w Pmx 100 1 gm In Dextrose/Water 1 100ml.bag @ 100 mls/hr IVPB Q1H LEANNE Rx#: [id number] Pressure bags 96 9 Sodium Chloride 0.9% 1, 550 50 000 ml @ 20 mls/hr IV . Q24H LEANNE Rx#:[id number] Intake, IV Titration 567.607 427.953 Amount ACETAMINOPHEN IV (For NPO 100 ) 1,000 mg In Empty Bag 1 bag @ 400 mls/hr IVPB Q6H LEANNE Rx#:[id number] Albumin Human 5% 250 ml 250 In Empty Bag 1 bag @ 250 mls/hr IVPB Q1HR PRN Rx#: [id number] Insulin Regular 100 unit 1.5 26.453 In Sodium Chloride 0.9% 100 ml @ Per Protocol IV .Q0M LEANNE Rx#:[id number] Nitroglycerin-D5w Pmx 50 6.0 1.5 mg In Dextrose/Water 1 250ml.bag @ 5 MCG/MIN 1.5 mls/hr IV .Q24H LEANNE Rx#: [id number] Potassium Chloride 10 meq 100 100 In Water For Injection 1 100ml.bag @ 100 mls/hr IVPB Q1H LEANNE Rx#: [id number] Sodium Chloride 0.9% 1, 200 50 000 ml @ 20 mls/hr IV . Q24H LEANNE Rx#:[id number] ceFAZolin 2 gm In Sodium 100 Chloride 0.9% 50 ml @ 100 mls/hr IVPB Q8HR LEANNE Rx# :[id number] propofoL 1,000 mg In 60.107 Empty Bag 1 bag @ Titrate IV .Q0M LEANNE Rx#: [id number] Output: Drainage 875 450 124 Left Arm [address] x 2 [address] 300 210 10 Urine 1735 790 40 Estimated Blood Loss 1000 Other: Voiding Method Indwelling Catheter Indwelling Catheter ABP, PAP, CO, CI - Last Documented Arterial Blood Pressure 83/44 Pulmonary Artery Pressure 17/7 Cardiac Output 4.9 Cardiac Index 2.3 - Constitutional General appearance: Present: average body habitus, cooperative, no acute distress - EENT Eyes: Present: normal appearance. Absent: scleral icterus - Neck Details: Neck is supple, right IJ Cordis was [place]Mayela catheter in place and functioning. - Respiratory Details: Lung sounds essentially clear throughout, diminished was bilateral bases. No wheezes, rhonchi or crackles. Respirations are symmetrical and nonlabored. Oxygen saturation are 98% on 2 L nasal cannula. Achieving less than 500 mL on his incentive spirometry with encouragement. Mediastinal left and right pleural chest tubes remain in place to low continuous wall suction -20 cm H2O. No air leak is present. Draining thin serosanguineous drainage. Left pleural chest tube drained 85 mL output in the last 8 hours, 650 mL output since surgery, right pleural chest tube with 150 mL output in the last 8 hours, 520 mL output since surgery, mediastinal chest tube with 10 mL output in the last 8 hours and 180 mL output since surgery. - Cardiovascular Details: Regular rhythm and rate. S1 and S2 present, negative for S3, gallop or murmur. Sternum is stable. Bedside telemetry showing normal sinus rhythm heart rate 78 BPM. Atrial epicardial pacemaker wires in place and connected to a backup bedside pacemaker generator on an AAI 50. No edema present. Right IJ [place]Mayela catheter in place with current hemodynamics showing a cardiac output 4.9, cardiac index 2.3, PA pressures 18/8, CVP 5 mmHg. Knee-high LILIA hose and sequential compression devices in place to his bilateral lower extremities. Heart hugger is in place and he is demonstrating appropriate use. - Gastrointestinal Gastrointestinal Comment(s): Abdomen is soft, nontender and nondistended. Hypoactive bowel sounds present in all 4 abdominal quadrants. No guarding or rigidity. No organomegaly appreciated. Tolerating oral intake. - Genitourinary Genitourinary Comment(s): Felipe catheter for accurate I&O. Draining clear erika urine. 440 mL output last 8 hours. - Integumentary Integumentary Comment(s): Skin is warm and dry. No clubbing or cyanosis is present. Midline sternal incision is clean, dry and approximated. No redness or drainage is present. Left arm radial artery harvest sites are clean, dry and approximated. No drainage or redness is present. AIDEE drain in place with scant serosanguineous drainage. Left lower extremity EVH site is clean, dry and approximated. No drainage redness is present. - Neurologic Neurologic: Present: CNII-XII intact - Musculoskeletal Musculoskeletal: Present: gait normal, generalized weakness, strength equal bilaterally - Psychiatric Psychiatric: Present: A&O x's 3, appropriate affect, intact judgment & insight - Allied health notes Allied health notes reviewed: nursing - Labs CBC & Chem 7: 02/06/20 04:00 02/06/20 04:00 Labs: Abnormal Lab Results - Last 24 Hours (Table) 02/04/20 02/05/20 02/05/20 Range/Units 06:28 08:31 10:34 WBC (3.8-10.6) k/uL RBC (4.30-5.90) m/uL Hgb (13.0-17.5) gm/dL Hct (39.0-53.0) % Plt Count (150-450) k/uL Neutrophils # (1.3-7.7) k/uL Lymphocytes # (1.0-4.8) k/uL PT (9.0-12.0) sec INR (<1.2) APTT (22.0-30.0) sec ABG pH (7.35-7.45) ABG pCO2 (35-45) mmHg ABG pO2 216 H 250 H (83-108) mmHg ABG Total CO2 26 H 26 H (19-24) mmol/L ABG O2 Saturation 99.6 H 99.8 H (94-97) % ABG Hematocrit (34.0-46.0) % ABG Potassium (3.4-4.5) mmol/L ABG Ionized Calcium (4.5-5.3) mg/dL ABG Glucose 102 H 111 H (75-99) mg/dL ABG Lactic Acid (0.5-1.6) mmol/L Hemoglobin 12.2 L 10.9 L (13.0-17.5) gm/dL Chloride (98-107) mmol/L Glucose (74-99) mg/dL POC Glucose (mg/dL) (75-99) mg/dL Calcium (8.4-10.2) mg/dL Magnesium (1.6-2.3) mg/dL Alkaline Phosphatase (38-126) U/L Total Protein (6.3-8.2) g/dL Albumin (3.5-5.0) g/dL Arterial Blood Potassium (3.4-4.5) mmol/L Arterial Blood Glucose 102 H 111 H (75-99) mg/dL Crossmatch See Detail 02/05/20 02/05/20 02/05/20 Range/Units 11:17 11:46 12:17 WBC (3.8-10.6) k/uL RBC (4.30-5.90) m/uL Hgb (13.0-17.5) gm/dL Hct (39.0-53.0) % Plt Count (150-450) k/uL Neutrophils # (1.3-7.7) k/uL Lymphocytes # (1.0-4.8) k/uL PT (9.0-12.0) sec INR (<1.2) APTT (22.0-30.0) sec ABG pH (7.35-7.45) ABG pCO2 (35-45) mmHg ABG pO2 283 H 345 H 340 H (83-108) mmHg ABG Total CO2 25 H 26 H 26 H (19-24) mmol/L ABG O2 Saturation 100.0 H 100.0 H 100.0 H (94-97) % ABG Hematocrit 32 L 28 L 25 L (34.0-46.0) % ABG Potassium (3.4-4.5) mmol/L ABG Ionized Calcium 4.3 L 4.3 L (4.5-5.3) mg/dL ABG Glucose 119 H 115 H 186 H (75-99) mg/dL ABG Lactic Acid (0.5-1.6) mmol/L Hemoglobin 10.4 L 9.3 L 8.1 L (13.0-17.5) gm/dL Chloride (98-107) mmol/L Glucose (74-99) mg/dL POC Glucose (mg/dL) (75-99) mg/dL Calcium (8.4-10.2) mg/dL Magnesium (1.6-2.3) mg/dL Alkaline Phosphatase (38-126) U/L Total Protein (6.3-8.2) g/dL Albumin (3.5-5.0) g/dL Arterial Blood Potassium (3.4-4.5) mmol/L Arterial Blood Glucose 119 H 115 H 186 H (75-99) mg/dL Crossmatch 02/05/20 02/05/20 02/05/20 Range/Units 12:43 13:15 14:20 WBC (3.8-10.6) k/uL RBC (4.30-5.90) m/uL Hgb (13.0-17.5) gm/dL Hct (39.0-53.0) % Plt Count (150-450) k/uL Neutrophils # (1.3-7.7) k/uL Lymphocytes # (1.0-4.8) k/uL PT (9.0-12.0) sec INR (<1.2) APTT (22.0-30.0) sec ABG pH (7.35-7.45) ABG pCO2 (35-45) mmHg ABG pO2 291 H >420 H 186 H (83-108) mmHg ABG Total CO2 26 H 26 H 25 H (19-24) mmol/L ABG O2 Saturation 100.0 H 100.0 H 99.7 H (94-97) % ABG Hematocrit 25 L 24 L 28 L (34.0-46.0) % ABG Potassium 3.3 L (3.4-4.5) mmol/L ABG Ionized Calcium 4.3 L 4.4 L (4.5-5.3) mg/dL ABG Glucose 192 H 179 H (75-99) mg/dL ABG Lactic Acid 1.8 H (0.5-1.6) mmol/L Hemoglobin 8.1 L 7.7 L 9.1 L (13.0-17.5) gm/dL Chloride (98-107) mmol/L Glucose (74-99) mg/dL POC Glucose (mg/dL) (75-99) mg/dL Calcium (8.4-10.2) mg/dL Magnesium (1.6-2.3) mg/dL Alkaline Phosphatase (38-126) U/L Total Protein (6.3-8.2) g/dL Albumin (3.5-5.0) g/dL Arterial Blood Potassium 3.3 L (3.4-4.5) mmol/L Arterial Blood Glucose 192 H 179 H (75-99) mg/dL Crossmatch 02/05/20 02/05/20 02/05/20 Range/Units 15:16 15:16 15:16 WBC (3.8-10.6) k/uL RBC 2.41 L (4.30-5.90) m/uL Hgb 7.4 L D (13.0-17.5) gm/dL Hct 22.1 L (39.0-53.0) % Plt Count 81 L D (150-450) k/uL Neutrophils # (1.3-7.7) k/uL Lymphocytes # 0.8 L (1.0-4.8) k/uL PT 13.6 H (9.0-12.0) sec INR 1.4 H (<1.2) APTT 37.8 H (22.0-30.0) sec ABG pH (7.35-7.45) ABG pCO2 (35-45) mmHg ABG pO2 (83-108) mmHg ABG Total CO2 (19-24) mmol/L ABG O2 Saturation (94-97) % ABG Hematocrit (34.0-46.0) % ABG Potassium (3.4-4.5) mmol/L ABG Ionized Calcium (4.5-5.3) mg/dL ABG Glucose (75-99) mg/dL ABG Lactic Acid (0.5-1.6) mmol/L Hemoglobin (13.0-17.5) gm/dL Chloride 111 H (98-107) mmol/L Glucose 100 H (74-99) mg/dL POC Glucose (mg/dL) (75-99) mg/dL Calcium 7.8 L (8.4-10.2) mg/dL Magnesium 2.5 H (1.6-2.3) mg/dL Alkaline Phosphatase 25 L (38-126) U/L Total Protein 4.0 L (6.3-8.2) g/dL Albumin 2.5 L (3.5-5.0) g/dL Arterial Blood Potassium (3.4-4.5) mmol/L Arterial Blood Glucose (75-99) mg/dL Crossmatch 02/05/20 02/05/20 02/05/20 Range/Units 15:24 15:46 16:07 WBC (3.8-10.6) k/uL RBC (4.30-5.90) m/uL Hgb (13.0-17.5) gm/dL Hct (39.0-53.0) % Plt Count (150-450) k/uL Neutrophils # (1.3-7.7) k/uL Lymphocytes # (1.0-4.8) k/uL PT (9.0-12.0) sec INR (<1.2) APTT (22.0-30.0) sec ABG pH 7.46 H (7.35-7.45) ABG pCO2 32 L (35-45) mmHg ABG pO2 >400 H (83-108) mmHg ABG Total CO2 (19-24) mmol/L ABG O2 Saturation 100.0 H (94-97) % ABG Hematocrit (34.0-46.0) % ABG Potassium (3.4-4.5) mmol/L ABG Ionized Calcium (4.5-5.3) mg/dL ABG Glucose (75-99) mg/dL ABG Lactic Acid (0.5-1.6) mmol/L Hemoglobin (13.0-17.5) gm/dL Chloride (98-107) mmol/L Glucose (74-99) mg/dL POC Glucose (mg/dL) 108 H 113 H (75-99) mg/dL Calcium (8.4-10.2) mg/dL Magnesium (1.6-2.3) mg/dL Alkaline Phosphatase (38-126) U/L Total Protein (6.3-8.2) g/dL Albumin (3.5-5.0) g/dL Arterial Blood Potassium (3.4-4.5) mmol/L Arterial Blood Glucose (75-99) mg/dL Crossmatch 02/05/20 02/05/20 02/05/20 Range/Units 17:06 17:58 18:02 WBC (3.8-10.6) k/uL RBC (4.30-5.90) m/uL Hgb (13.0-17.5) gm/dL Hct (39.0-53.0) % Plt Count (150-450) k/uL Neutrophils # (1.3-7.7) k/uL Lymphocytes # (1.0-4.8) k/uL PT (9.0-12.0) sec INR (<1.2) APTT (22.0-30.0) sec ABG pH 7.24 L (7.35-7.45) ABG pCO2 54 H (35-45) mmHg ABG pO2 (83-108) mmHg ABG Total CO2 (19-24) mmol/L ABG O2 Saturation 98.0 H (94-97) % ABG Hematocrit (34.0-46.0) % ABG Potassium (3.4-4.5) mmol/L ABG Ionized Calcium (4.5-5.3) mg/dL ABG Glucose (75-99) mg/dL ABG Lactic Acid (0.5-1.6) mmol/L Hemoglobin (13.0-17.5) gm/dL Chloride (98-107) mmol/L Glucose (74-99) mg/dL POC Glucose (mg/dL) 145 H 153 H (75-99) mg/dL Calcium (8.4-10.2) mg/dL Magnesium (1.6-2.3) mg/dL Alkaline Phosphatase (38-126) U/L Total Protein (6.3-8.2) g/dL Albumin (3.5-5.0) g/dL Arterial Blood Potassium (3.4-4.5) mmol/L Arterial Blood Glucose (75-99) mg/dL Crossmatch 02/05/20 02/05/20 02/05/20 Range/Units 18:03 19:04 19:55 WBC 11.3 H (3.8-10.6) k/uL RBC 2.90 L (4.30-5.90) m/uL Hgb 9.1 L D (13.0-17.5) gm/dL Hct 27.0 L (39.0-53.0) % Plt Count (150-450) k/uL Neutrophils # 9.2 H (1.3-7.7) k/uL Lymphocytes # (1.0-4.8) k/uL PT (9.0-12.0) sec INR (<1.2) APTT (22.0-30.0) sec ABG pH (7.35-7.45) ABG pCO2 (35-45) mmHg ABG pO2 (83-108) mmHg ABG Total CO2 (19-24) mmol/L ABG O2 Saturation (94-97) % ABG Hematocrit (34.0-46.0) % ABG Potassium (3.4-4.5) mmol/L ABG Ionized Calcium (4.5-5.3) mg/dL ABG Glucose (75-99) mg/dL ABG Lactic Acid (0.5-1.6) mmol/L Hemoglobin (13.0-17.5) gm/dL Chloride (98-107) mmol/L Glucose (74-99) mg/dL POC Glucose (mg/dL) 157 H 162 H (75-99) mg/dL Calcium (8.4-10.2) mg/dL Magnesium (1.6-2.3) mg/dL Alkaline Phosphatase (38-126) U/L Total Protein (6.3-8.2) g/dL Albumin (3.5-5.0) g/dL Arterial Blood Potassium (3.4-4.5) mmol/L Arterial Blood Glucose (75-99) mg/dL Crossmatch 02/05/20 02/05/20 02/05/20 Range/Units 20:57 21:00 21:52 WBC (3.8-10.6) k/uL RBC 2.72 L (4.30-5.90) m/uL Hgb 8.3 L (13.0-17.5) gm/dL Hct 25.2 L (39.0-53.0) % Plt Count (150-450) k/uL Neutrophils # 8.7 H (1.3-7.7) k/uL Lymphocytes # 0.4 L (1.0-4.8) k/uL PT (9.0-12.0) sec INR (<1.2) APTT (22.0-30.0) sec ABG pH (7.35-7.45) ABG pCO2 (35-45) mmHg ABG pO2 (83-108) mmHg ABG Total CO2 (19-24) mmol/L ABG O2 Saturation (94-97) % ABG Hematocrit (34.0-46.0) % ABG Potassium (3.4-4.5) mmol/L ABG Ionized Calcium (4.5-5.3) mg/dL ABG Glucose (75-99) mg/dL ABG Lactic Acid (0.5-1.6) mmol/L Hemoglobin (13.0-17.5) gm/dL Chloride (98-107) mmol/L Glucose (74-99) mg/dL POC Glucose (mg/dL) 141 H 124 H (75-99) mg/dL Calcium (8.4-10.2) mg/dL Magnesium (1.6-2.3) mg/dL Alkaline Phosphatase (38-126) U/L Total Protein (6.3-8.2) g/dL Albumin (3.5-5.0) g/dL Arterial Blood Potassium (3.4-4.5) mmol/L Arterial Blood Glucose (75-99) mg/dL Crossmatch 02/05/20 02/06/20 02/06/20 Range/Units 22:56 00:09 01:06 WBC (3.8-10.6) k/uL RBC (4.30-5.90) m/uL Hgb (13.0-17.5) gm/dL Hct (39.0-53.0) % Plt Count (150-450) k/uL Neutrophils # (1.3-7.7) k/uL Lymphocytes # (1.0-4.8) k/uL PT (9.0-12.0) sec INR (<1.2) APTT (22.0-30.0) sec ABG pH (7.35-7.45) ABG pCO2 (35-45) mmHg ABG pO2 (83-108) mmHg ABG Total CO2 (19-24) mmol/L ABG O2 Saturation (94-97) % ABG Hematocrit (34.0-46.0) % ABG Potassium (3.4-4.5) mmol/L ABG Ionized Calcium (4.5-5.3) mg/dL ABG Glucose (75-99) mg/dL ABG Lactic Acid (0.5-1.6) mmol/L Hemoglobin (13.0-17.5) gm/dL Chloride (98-107) mmol/L Glucose (74-99) mg/dL POC Glucose (mg/dL) 110 H 137 H 126 H (75-99) mg/dL Calcium (8.4-10.2) mg/dL Magnesium (1.6-2.3) mg/dL Alkaline Phosphatase (38-126) U/L Total Protein (6.3-8.2) g/dL Albumin (3.5-5.0) g/dL Arterial Blood Potassium (3.4-4.5) mmol/L Arterial Blood Glucose (75-99) mg/dL Crossmatch 02/06/20 02/06/20 02/06/20 Range/Units 01:59 03:03 04:00 WBC (3.8-10.6) k/uL RBC 2.50 L (4.30-5.90) m/uL Hgb 7.8 L (13.0-17.5) gm/dL Hct 23.1 L (39.0-53.0) % Plt Count 114 L (150-450) k/uL Neutrophils # (1.3-7.7) k/uL Lymphocytes # 0.4 L (1.0-4.8) k/uL PT (9.0-12.0) sec INR (<1.2) APTT (22.0-30.0) sec ABG pH (7.35-7.45) ABG pCO2 (35-45) mmHg ABG pO2 (83-108) mmHg ABG Total CO2 (19-24) mmol/L ABG O2 Saturation (94-97) % ABG Hematocrit (34.0-46.0) % ABG Potassium (3.4-4.5) mmol/L ABG Ionized Calcium (4.5-5.3) mg/dL ABG Glucose (75-99) mg/dL ABG Lactic Acid (0.5-1.6) mmol/L Hemoglobin (13.0-17.5) gm/dL Chloride (98-107) mmol/L Glucose (74-99) mg/dL POC Glucose (mg/dL) 111 H 128 H (75-99) mg/dL Calcium (8.4-10.2) mg/dL Magnesium (1.6-2.3) mg/dL Alkaline Phosphatase (38-126) U/L Total Protein (6.3-8.2) g/dL Albumin (3.5-5.0) g/dL Arterial Blood Potassium (3.4-4.5) mmol/L Arterial Blood Glucose (75-99) mg/dL Crossmatch 02/06/20 02/06/20 02/06/20 Range/Units 04:00 04:01 04:59 WBC (3.8-10.6) k/uL RBC (4.30-5.90) m/uL Hgb (13.0-17.5) gm/dL Hct (39.0-53.0) % Plt Count (150-450) k/uL Neutrophils # (1.3-7.7) k/uL Lymphocytes # (1.0-4.8) k/uL PT (9.0-12.0) sec INR (<1.2) APTT (22.0-30.0) sec ABG pH (7.35-7.45) ABG pCO2 (35-45) mmHg ABG pO2 (83-108) mmHg ABG Total CO2 (19-24) mmol/L ABG O2 Saturation (94-97) % ABG Hematocrit (34.0-46.0) % ABG Potassium (3.4-4.5) mmol/L ABG Ionized Calcium (4.5-5.3) mg/dL ABG Glucose (75-99) mg/dL ABG Lactic Acid (0.5-1.6) mmol/L Hemoglobin (13.0-17.5) gm/dL Chloride 109 H (98-107) mmol/L Glucose 118 H (74-99) mg/dL POC Glucose (mg/dL) 128 H 122 H (75-99) mg/dL Calcium 8.2 L (8.4-10.2) mg/dL Magnesium (1.6-2.3) mg/dL Alkaline Phosphatase 30 L (38-126) U/L Total Protein 5.0 L (6.3-8.2) g/dL Albumin 3.3 L (3.5-5.0) g/dL Arterial Blood Potassium (3.4-4.5) mmol/L Arterial Blood Glucose (75-99) mg/dL Crossmatch 02/06/20 02/06/20 Range/Units 06:48 08:25 WBC (3.8-10.6) k/uL RBC (4.30-5.90) m/uL Hgb (13.0-17.5) gm/dL Hct (39.0-53.0) % Plt Count (150-450) k/uL Neutrophils # (1.3-7.7) k/uL Lymphocytes # (1.0-4.8) k/uL PT (9.0-12.0) sec INR (<1.2) APTT (22.0-30.0) sec ABG pH (7.35-7.45) ABG pCO2 (35-45) mmHg ABG pO2 (83-108) mmHg ABG Total CO2 (19-24) mmol/L ABG O2 Saturation (94-97) % ABG Hematocrit (34.0-46.0) % ABG Potassium (3.4-4.5) mmol/L ABG Ionized Calcium (4.5-5.3) mg/dL ABG Glucose (75-99) mg/dL ABG Lactic Acid (0.5-1.6) mmol/L Hemoglobin (13.0-17.5) gm/dL Chloride (98-107) mmol/L Glucose (74-99) mg/dL POC Glucose (mg/dL) 147 H 146 H (75-99) mg/dL Calcium (8.4-10.2) mg/dL Magnesium (1.6-2.3) mg/dL Alkaline Phosphatase (38-126) U/L Total Protein (6.3-8.2) g/dL Albumin (3.5-5.0) g/dL Arterial Blood Potassium (3.4-4.5) mmol/L Arterial Blood Glucose (75-99) mg/dL Crossmatch - Imaging and Cardiology Chest x-ray: report reviewed, image reviewed Assessment and Plan Assessment: 1. Symptomatic multivessel coronary artery disease, postoperative triple-vessel coronary artery bypass grafting surgery 2. Preoperative shortness of breath on exertion, resolved 3. History of hypertension 4. History of prostate cancer status post prostatectomy at age 47 5. Osteoarthritis 6. Postoperative acute blood loss anemia, expected Plan: 1. Continue to maximize medical therapy with aspirin, Plavix and beta hannah. Will increase metoprolol tartrate as tolerated. 2. Discontinue IV nitroglycerin drip. 3. Wean O2 as tolerated. Continue to encourage use of incentive spirometry 10 times every hour while awake. Bronchodilators per pulmonology/critical care management. 4. Will monitor daily labs and chest x-rays. Electrolytes replacement per protocol. 5. GI/DVT prophylaxis. Protonix switched to by mouth. 6. Pain control with current medication regimen. Toradol has been added. [place] increased to 7.5/325 one to 2 tablets by mouth every 4 hours when necessary pain. 7. Diabetes/insulin management per primary care service. 8. Discontinue right IJ [place]-Mayela catheter, keep right IJ Cordis and placed to continuous CVP monitoring. 9. We will keep the mediastinal and left/right pleural chest tubes in place for another 24 hours. 10. Keep Felipe catheter for another 24 hours for strict accurate intake and output. 11. Daily weights using standup scale, no bed scale. 12. Start Norvasc 2.5 mg by mouth daily at noon for radial artery spasm prophylaxis. Please do not discontinue without discussing with cardiothoracic surgery service. Hold for systolic blood pressure less than 100 mmHg. 13. Keep atrial epicardial pacemaker wires in place, grounded epicardial pacemaker wires. 14. Reglan 10 mg IV 1 now. 15. Increase activity as tolerated, physical/occupational therapy, and cardiac rehabilitation consulted. Out of bed for all meals. 16. More recommendations to follow based on patient's clinical course. Nurse practitioner note has been reviewed by the physician. Signing provider agrees with the above documented findings, assessment and plan of care. Time with Patient: Greater than 30
[2020-02-06 09:17] LABS: Glucose,Whole Blood 139 mg/dL (75-99)
--- NOTE | 2020-02-06 09:37 | PN ---
PROGRESS NOTE Mr. Coy is a 59-year-old male who underwent cardiac catheterization by Dr. Figueroa on 01/31 and was found to have severe triple-vessel disease, underwent coronary bypass grafting yesterday by Dr. Fraire and received a GONZALEZ to the LAD, radial to the obtuse marginal branch and saphenous vein graft to the right coronary artery with clipping of the left atrial appendage. He is extubated, sitting up in the chair in sinus mechanism, complaining of soreness and cramping on the left side of the chest. He is on no pressor. He continues to be at this time on aspirin once a day, Lipitor 40 mg daily, metoprolol tartrate 12.5 mg twice a day. PHYSICAL EXAMINATION: Blood pressure running in the high 80s to 100 with a heart rate in the 70s. LUNGS: With decreased breath sounds at the bases, no wheezes. HEART: Regular rate and rhythm, S1, S2. No S3. No rub appreciated. ABDOMEN: Soft, nontender. EXTREMITIES: No edema. LAB DATA: Revealed BUN and creatinine 14 and 0.8, hemoglobin of 7.8. Chest x-ray shows normal status, possible small effusion. IMPRESSION: 1. Status post coronary artery bypass grafting to severe triple-vessel coronary artery disease. 2. Hypertension. 3. Hyperlipidemia. RECOMMENDATION: From the cardiac standpoint, will continue present therapy. Will follow his blood pressure and because of 100 heart rate to adjust his medical regimen. Continue incentive spirometry and depending on his progress, further recommendation will be made. MMODL / IJN: [id number] /
[2020-02-06 10:31] VITALS: BMI 27.4
[2020-02-06 11:20] LABS: Glucose,Whole Blood 138 mg/dL (75-99)
[2020-02-06] MEDS ORDERED: MORPHINE SULFATE 2 MG/ML SYRINGE IVP STA (11:32)
[2020-02-06] MEDS: SODIUM CHLORIDE 0.9% 1,000 ML IV SCH ×2 (11:41→16:25)
--- NOTE | 2020-02-06 11:50 | P.VSCSTY ---
Greater Saphenous Vein Mapping This is bilateral lower extremity greater saphenous vein mapping. Date of service: 02/02/2020 Vein quality and ultrasound appearance: We see no intraluminal thrombus or wall changes. Vein size groin right : 4.4 x 4.4 groin left: 5.9 x 4.9 High thigh right: 3.6 x 2.8 high thigh left: 3.2 x 2.9 Mid thigh right: 3.4 x 2.7 mid thigh left: 3.2 x 2.6 Above-knee right: 2.9 x 2.4 above- knee left: 2.8 x 2.4 Below knee right: 3.0 x 2.4 below-knee left: 3.3 x 2.6 Mid calf right: 2.7 x 2.4 mid calf left: 3.8 x 2.4 Ankle right: 2.4 x 2.1 ankle left: 3.9 x 3.1 Impression: Usable bilateral greater saphenous vein.
--- NOTE | 2020-02-06 12:13 | P.PN ---
Subjective Progress Note Date: 02/06/20 Patient seen post heart cath with triple-vessel disease currently awaiting open heart surgery scheduled for tomorrow. He has no current complaints. He is resting comfortably afebrile. 02/06/2020 status post CABG, postop day #1. Tolerated procedure well. Extubated, maintaining O2 sats of 100% on 2 L nasal cannula. Received 250 MLS of albumin last night for hypotension. Positive pain, Gypsy dose increased. Federico-Synephrine weaned off, currently maintained on nitroglycerin and insulin drips. Telemetry sinus rhythm. Blood sugars controlled. Chest x-ray reported persistent basilar atelectatic changes, difficult to exclude minimal effusion. Hemoglobin 7.8. Objective - Vital Signs Vital signs: Vital Signs Temp 98.2 F 02/05/20 19:00 Pulse 80 02/06/20 08:19 Resp 17 02/06/20 07:00 BP 110/7 02/05/20 20:30 Pulse Ox 99 02/06/20 07:00 Intake & Output 02/05/20 02/06/20 02/06/20 18:59 06:59 18:59 Intake Total 126.361 6259.953 579 Output Total 3610 1240 164 Balance -3010.393 363.953 415 Weight 94.3 kg Intake: IV 32 1176 579 Albumin Human 25% 50 ml 100 In Empty Bag 1 bag @ 100 mls/hr IVPB ONCE ONE Rx#: [id number] Albumin Human 5% 250 ml 250 500 In Empty Bag 1 bag @ 250 mls/hr IVPB Q1HR PRN Rx#: [id number] CO/CI 80 20 Magnesium Sulfate-D5w Pmx 100 1 gm In Dextrose/Water 1 100ml.bag @ 100 mls/hr IVPB Q1H [facility] Rx#: [id number] Pressure bags 96 9 Sodium Chloride 0.9% 1, 550 50 000 ml @ 20 mls/hr IV . Q24H [facility] Rx#:[id number] Intake, IV Titration 567.607 427.953 Amount ACETAMINOPHEN IV (For NPO 100 ) 1,000 mg In Empty Bag 1 bag @ 400 mls/hr IVPB Q6H [facility] Rx#:[id number] Albumin Human 5% 250 ml 250 In Empty Bag 1 bag @ 250 mls/hr IVPB Q1HR PRN Rx#: [id number] Insulin Regular 100 unit 1.5 26.453 In Sodium Chloride 0.9% 100 ml @ Per Protocol IV .Q0M [facility] Rx#:[id number] Nitroglycerin-D5w Pmx 50 6.0 1.5 mg In Dextrose/Water 1 250ml.bag @ 5 MCG/MIN 1.5 mls/hr IV .Q24H [facility] Rx#: [id number] Potassium Chloride 10 meq 100 100 In Water For Injection 1 100ml.bag @ 100 mls/hr IVPB Q1H [facility] Rx#: [id number] Sodium Chloride 0.9% 1, 200 50 000 ml @ 20 mls/hr IV . Q24H [facility] Rx#:[id number] ceFAZolin 2 gm In Sodium 100 Chloride 0.9% 50 ml @ 100 mls/hr IVPB Q8HR [facility] Rx# :[id number] propofoL 1,000 mg In 60.107 Empty Bag 1 bag @ Titrate IV .Q0M [facility] Rx#: [id number] Output: Drainage 875 450 124 Left Arm [address] x 2 [address] 300 210 10 Urine 1735 790 40 Estimated Blood Loss 1000 Other: Voiding Method Indwelling Catheter Indwelling Catheter ABP, PAP, CO, CI - Last Documented Arterial Blood Pressure 83/44 Pulmonary Artery Pressure 17/7 Cardiac Output 4.9 Cardiac Index 2.3 - Exam - Exam GENERAL: Sitting up in chair, chest tube discomfort, no acute distress. HEENT: Head is atraumatic, normocephalic. Pupils are equal, round, and reactive to light. Sclerae anicteric. Conjunctivae are clear. Mucus membranes of the mouth are moist. Neck is supple. RESPIRATORY: Clear to auscultation. No wheezes, rales, or rhonchi, bilateral b ases diminished. Chest tubes present. CARDIOVASCULAR: Regular rate and rhythm. S1 and S2 noted. No systolic or diastolic murmur auscultated. No JVD noted. No S3 or S4 noted. GASTROINTESTINAL: No distention noted. Abdomen soft and round. Hypoactive bowel sounds. No pain or tenderness noted upon palpation. INTEGUMENTARY: No cyanosis. No jaundice. No rashes noted. No cellulitis noted. EXTREMITIES: 2+ peripheral pulses. No evidence of peripheral edema. No calf tenderness noted. AIDEE with minimal serosanguineous drainage. NEUROLOGIC: Cranial nerves II-XII intact. PSYCHIATRIC: Awake, alert, and oriented X 3. Appropriate affect. Intact judgement and insight. - Labs CBC & Chem 7: 02/06/20 04:00 02/06/20 04:00 Labs: Abnormal Lab Results - Last 24 Hours (Table) 02/04/20 02/05/20 02/05/20 Range/Units 06:28 08:31 10:34 WBC (3.8-10.6) k/uL RBC (4.30-5.90) m/uL Hgb (13.0-17.5) gm/dL Hct (39.0-53.0) % Plt Count (150-450) k/uL Neutrophils # (1.3-7.7) k/uL Lymphocytes # (1.0-4.8) k/uL PT (9.0-12.0) sec INR (<1.2) APTT (22.0-30.0) sec ABG pH (7.35-7.45) ABG pCO2 (35-45) mmHg ABG pO2 216 H 250 H (83-108) mmHg ABG Total CO2 26 H 26 H (19-24) mmol/L ABG O2 Saturation 99.6 H 99.8 H (94-97) % ABG Hematocrit (34.0-46.0) % ABG Potassium (3.4-4.5) mmol/L ABG Ionized Calcium (4.5-5.3) mg/dL ABG Glucose 102 H 111 H (75-99) mg/dL ABG Lactic Acid (0.5-1.6) mmol/L Hemoglobin 12.2 L 10.9 L (13.0-17.5) gm/dL Chloride (98-107) mmol/L Glucose (74-99) mg/dL POC Glucose (mg/dL) (75-99) mg/dL Calcium (8.4-10.2) mg/dL Magnesium (1.6-2.3) mg/dL Alkaline Phosphatase (38-126) U/L Total Protein (6.3-8.2) g/dL Albumin (3.5-5.0) g/dL Arterial Blood Potassium (3.4-4.5) mmol/L Arterial Blood Glucose 102 H 111 H (75-99) mg/dL Crossmatch See Detail 02/05/20 02/05/20 02/05/20 Range/Units 11:17 11:46 12:17 WBC (3.8-10.6) k/uL RBC (4.30-5.90) m/uL Hgb (13.0-17.5) gm/dL Hct (39.0-53.0) % Plt Count (150-450) k/uL Neutrophils # (1.3-7.7) k/uL Lymphocytes # (1.0-4.8) k/uL PT (9.0-12.0) sec INR (<1.2) APTT (22.0-30.0) sec ABG pH (7.35-7.45) ABG pCO2 (35-45) mmHg ABG pO2 283 H 345 H 340 H (83-108) mmHg ABG Total CO2 25 H 26 H 26 H (19-24) mmol/L ABG O2 Saturation 100.0 H 100.0 H 100.0 H (94-97) % ABG Hematocrit 32 L 28 L 25 L (34.0-46.0) % ABG Potassium (3.4-4.5) mmol/L ABG Ionized Calcium 4.3 L 4.3 L (4.5-5.3) mg/dL ABG Glucose 119 H 115 H 186 H (75-99) mg/dL ABG Lactic Acid (0.5-1.6) mmol/L Hemoglobin 10.4 L 9.3 L 8.1 L (13.0-17.5) gm/dL Chloride (98-107) mmol/L Glucose (74-99) mg/dL POC Glucose (mg/dL) (75-99) mg/dL Calcium (8.4-10.2) mg/dL Magnesium (1.6-2.3) mg/dL Alkaline Phosphatase (38-126) U/L Total Protein (6.3-8.2) g/dL Albumin (3.5-5.0) g/dL Arterial Blood Potassium (3.4-4.5) mmol/L Arterial Blood Glucose 119 H 115 H 186 H (75-99) mg/dL Crossmatch 02/05/20 02/05/20 02/05/20 Range/Units 12:43 13:15 14:20 WBC (3.8-10.6) k/uL RBC (4.30-5.90) m/uL Hgb (13.0-17.5) gm/dL Hct (39.0-53.0) % Plt Count (150-450) k/uL Neutrophils # (1.3-7.7) k/uL Lymphocytes # (1.0-4.8) k/uL PT (9.0-12.0) sec INR (<1.2) APTT (22.0-30.0) sec ABG pH (7.35-7.45) ABG pCO2 (35-45) mmHg ABG pO2 291 H >420 H 186 H (83-108) mmHg ABG Total CO2 26 H 26 H 25 H (19-24) mmol/L ABG O2 Saturation 100.0 H 100.0 H 99.7 H (94-97) % ABG Hematocrit 25 L 24 L 28 L (34.0-46.0) % ABG Potassium 3.3 L (3.4-4.5) mmol/L ABG Ionized Calcium 4.3 L 4.4 L (4.5-5.3) mg/dL ABG Glucose 192 H 179 H (75-99) mg/dL ABG Lactic Acid 1.8 H (0.5-1.6) mmol/L Hemoglobin 8.1 L 7.7 L 9.1 L (13.0-17.5) gm/dL Chloride (98-107) mmol/L Glucose (74-99) mg/dL POC Glucose (mg/dL) (75-99) mg/dL Calcium (8.4-10.2) mg/dL Magnesium (1.6-2.3) mg/dL Alkaline Phosphatase (38-126) U/L Total Protein (6.3-8.2) g/dL Albumin (3.5-5.0) g/dL Arterial Blood Potassium 3.3 L (3.4-4.5) mmol/L Arterial Blood Glucose 192 H 179 H (75-99) mg/dL Crossmatch 02/05/20 02/05/20 02/05/20 Range/Units 15:16 15:16 15:16 WBC (3.8-10.6) k/uL RBC 2.41 L (4.30-5.90) m/uL Hgb 7.4 L D (13.0-17.5) gm/dL Hct 22.1 L (39.0-53.0) % Plt Count 81 L D (150-450) k/uL Neutrophils # (1.3-7.7) k/uL Lymphocytes # 0.8 L (1.0-4.8) k/uL PT 13.6 H (9.0-12.0) sec INR 1.4 H (<1.2) APTT 37.8 H (22.0-30.0) sec ABG pH (7.35-7.45) ABG pCO2 (35-45) mmHg ABG pO2 (83-108) mmHg ABG Total CO2 (19-24) mmol/L ABG O2 Saturation (94-97) % ABG Hematocrit (34.0-46.0) % ABG Potassium (3.4-4.5) mmol/L ABG Ionized Calcium (4.5-5.3) mg/dL ABG Glucose (75-99) mg/dL ABG Lactic Acid (0.5-1.6) mmol/L Hemoglobin (13.0-17.5) gm/dL Chloride 111 H (98-107) mmol/L Glucose 100 H (74-99) mg/dL POC Glucose (mg/dL) (75-99) mg/dL Calcium 7.8 L (8.4-10.2) mg/dL Magnesium 2.5 H (1.6-2.3) mg/dL Alkaline Phosphatase 25 L (38-126) U/L Total Protein 4.0 L (6.3-8.2) g/dL Albumin 2.5 L (3.5-5.0) g/dL Arterial Blood Potassium (3.4-4.5) mmol/L Arterial Blood Glucose (75-99) mg/dL Crossmatch 02/05/20 02/05/20 02/05/20 Range/Units 15:24 15:46 16:07 WBC (3.8-10.6) k/uL RBC (4.30-5.90) m/uL Hgb (13.0-17.5) gm/dL Hct (39.0-53.0) % Plt Count (150-450) k/uL Neutrophils # (1.3-7.7) k/uL Lymphocytes # (1.0-4.8) k/uL PT (9.0-12.0) sec INR (<1.2) APTT (22.0-30.0) sec ABG pH 7.46 H (7.35-7.45) ABG pCO2 32 L (35-45) mmHg ABG pO2 >400 H (83-108) mmHg ABG Total CO2 (19-24) mmol/L ABG O2 Saturation 100.0 H (94-97) % ABG Hematocrit (34.0-46.0) % ABG Potassium (3.4-4.5) mmol/L ABG Ionized Calcium (4.5-5.3) mg/dL ABG Glucose (75-99) mg/dL ABG Lactic Acid (0.5-1.6) mmol/L Hemoglobin (13.0-17.5) gm/dL Chloride (98-107) mmol/L Glucose (74-99) mg/dL POC Glucose (mg/dL) 108 H 113 H (75-99) mg/dL Calcium (8.4-10.2) mg/dL Magnesium (1.6-2.3) mg/dL Alkaline Phosphatase (38-126) U/L Total Protein (6.3-8.2) g/dL Albumin (3.5-5.0) g/dL Arterial Blood Potassium (3.4-4.5) mmol/L Arterial Blood Glucose (75-99) mg/dL Crossmatch 02/05/20 02/05/20 02/05/20 Range/Units 17:06 17:58 18:02 WBC (3.8-10.6) k/uL RBC (4.30-5.90) m/uL Hgb (13.0-17.5) gm/dL Hct (39.0-53.0) % Plt Count (150-450) k/uL Neutrophils # (1.3-7.7) k/uL Lymphocytes # (1.0-4.8) k/uL PT (9.0-12.0) sec INR (<1.2) APTT (22.0-30.0) sec ABG pH 7.24 L (7.35-7.45) ABG pCO2 54 H (35-45) mmHg ABG pO2 (83-108) mmHg ABG Total CO2 (19-24) mmol/L ABG O2 Saturation 98.0 H (94-97) % ABG Hematocrit (34.0-46.0) % ABG Potassium (3.4-4.5) mmol/L ABG Ionized Calcium (4.5-5.3) mg/dL ABG Glucose (75-99) mg/dL ABG Lactic Acid (0.5-1.6) mmol/L Hemoglobin (13.0-17.5) gm/dL Chloride (98-107) mmol/L Glucose (74-99) mg/dL POC Glucose (mg/dL) 145 H 153 H (75-99) mg/dL Calcium (8.4-10.2) mg/dL Magnesium (1.6-2.3) mg/dL Alkaline Phosphatase (38-126) U/L Total Protein (6.3-8.2) g/dL Albumin (3.5-5.0) g/dL Arterial Blood Potassium (3.4-4.5) mmol/L Arterial Blood Glucose (75-99) mg/dL Crossmatch 02/05/20 02/05/20 02/05/20 Range/Units 18:03 19:04 19:55 WBC 11.3 H (3.8-10.6) k/uL RBC 2.90 L (4.30-5.90) m/uL Hgb 9.1 L D (13.0-17.5) gm/dL Hct 27.0 L (39.0-53.0) % Plt Count (150-450) k/uL Neutrophils # 9.2 H (1.3-7.7) k/uL Lymphocytes # (1.0-4.8) k/uL PT (9.0-12.0) sec INR (<1.2) APTT (22.0-30.0) sec ABG pH (7.35-7.45) ABG pCO2 (35-45) mmHg ABG pO2 (83-108) mmHg ABG Total CO2 (19-24) mmol/L ABG O2 Saturation (94-97) % ABG Hematocrit (34.0-46.0) % ABG Potassium (3.4-4.5) mmol/L ABG Ionized Calcium (4.5-5.3) mg/dL ABG Glucose (75-99) mg/dL ABG Lactic Acid (0.5-1.6) mmol/L Hemoglobin (13.0-17.5) gm/dL Chloride (98-107) mmol/L Glucose (74-99) mg/dL POC Glucose (mg/dL) 157 H 162 H (75-99) mg/dL Calcium (8.4-10.2) mg/dL Magnesium (1.6-2.3) mg/dL Alkaline Phosphatase (38-126) U/L Total Protein (6.3-8.2) g/dL Albumin (3.5-5.0) g/dL Arterial Blood Potassium (3.4-4.5) mmol/L Arterial Blood Glucose (75-99) mg/dL Crossmatch 02/05/20 02/05/20 02/05/20 Range/Units 20:57 21:00 21:52 WBC (3.8-10.6) k/uL RBC 2.72 L (4.30-5.90) m/uL Hgb 8.3 L (13.0-17.5) gm/dL Hct 25.2 L (39.0-53.0) % Plt Count (150-450) k/uL Neutrophils # 8.7 H (1.3-7.7) k/uL Lymphocytes # 0.4 L (1.0-4.8) k/uL PT (9.0-12.0) sec INR (<1.2) APTT (22.0-30.0) sec ABG pH (7.35-7.45) ABG pCO2 (35-45) mmHg ABG pO2 (83-108) mmHg ABG Total CO2 (19-24) mmol/L ABG O2 Saturation (94-97) % ABG Hematocrit (34.0-46.0) % ABG Potassium (3.4-4.5) mmol/L ABG Ionized Calcium (4.5-5.3) mg/dL ABG Glucose (75-99) mg/dL ABG Lactic Acid (0.5-1.6) mmol/L Hemoglobin (13.0-17.5) gm/dL Chloride (98-107) mmol/L Glucose (74-99) mg/dL POC Glucose (mg/dL) 141 H 124 H (75-99) mg/dL Calcium (8.4-10.2) mg/dL Magnesium (1.6-2.3) mg/dL Alkaline Phosphatase (38-126) U/L Total Protein (6.3-8.2) g/dL Albumin (3.5-5.0) g/dL Arterial Blood Potassium (3.4-4.5) mmol/L Arterial Blood Glucose (75-99) mg/dL Crossmatch 02/05/20 02/06/20 02/06/20 Range/Units 22:56 00:09 01:06 WBC (3.8-10.6) k/uL RBC (4.30-5.90) m/uL Hgb (13.0-17.5) gm/dL Hct (39.0-53.0) % Plt Count (150-450) k/uL Neutrophils # (1.3-7.7) k/uL Lymphocytes # (1.0-4.8) k/uL PT (9.0-12.0) sec INR (<1.2) APTT (22.0-30.0) sec ABG pH (7.35-7.45) ABG pCO2 (35-45) mmHg ABG pO2 (83-108) mmHg ABG Total CO2 (19-24) mmol/L ABG O2 Saturation (94-97) % ABG Hematocrit (34.0-46.0) % ABG Potassium (3.4-4.5) mmol/L ABG Ionized Calcium (4.5-5.3) mg/dL ABG Glucose (75-99) mg/dL ABG Lactic Acid (0.5-1.6) mmol/L Hemoglobin (13.0-17.5) gm/dL Chloride (98-107) mmol/L Glucose (74-99) mg/dL POC Glucose (mg/dL) 110 H 137 H 126 H (75-99) mg/dL Calcium (8.4-10.2) mg/dL Magnesium (1.6-2.3) mg/dL Alkaline Phosphatase (38-126) U/L Total Protein (6.3-8.2) g/dL Albumin (3.5-5.0) g/dL Arterial Blood Potassium (3.4-4.5) mmol/L Arterial Blood Glucose (75-99) mg/dL Crossmatch 02/06/20 02/06/20 02/06/20 Range/Units 01:59 03:03 04:00 WBC (3.8-10.6) k/uL RBC 2.50 L (4.30-5.90) m/uL Hgb 7.8 L (13.0-17.5) gm/dL Hct 23.1 L (39.0-53.0) % Plt Count 114 L (150-450) k/uL Neutrophils # (1.3-7.7) k/uL Lymphocytes # 0.4 L (1.0-4.8) k/uL PT (9.0-12.0) sec INR (<1.2) APTT (22.0-30.0) sec ABG pH (7.35-7.45) ABG pCO2 (35-45) mmHg ABG pO2 (83-108) mmHg ABG Total CO2 (19-24) mmol/L ABG O2 Saturation (94-97) % ABG Hematocrit (34.0-46.0) % ABG Potassium (3.4-4.5) mmol/L ABG Ionized Calcium (4.5-5.3) mg/dL ABG Glucose (75-99) mg/dL ABG Lactic Acid (0.5-1.6) mmol/L Hemoglobin (13.0-17.5) gm/dL Chloride (98-107) mmol/L Glucose (74-99) mg/dL POC Glucose (mg/dL) 111 H 128 H (75-99) mg/dL Calcium (8.4-10.2) mg/dL Magnesium (1.6-2.3) mg/dL Alkaline Phosphatase (38-126) U/L Total Protein (6.3-8.2) g/dL Albumin (3.5-5.0) g/dL Arterial Blood Potassium (3.4-4.5) mmol/L Arterial Blood Glucose (75-99) mg/dL Crossmatch 02/06/20 02/06/20 02/06/20 Range/Units 04:00 04:01 04:59 WBC (3.8-10.6) k/uL RBC (4.30-5.90) m/uL Hgb (13.0-17.5) gm/dL Hct (39.0-53.0) % Plt Count (150-450) k/uL Neutrophils # (1.3-7.7) k/uL Lymphocytes # (1.0-4.8) k/uL PT (9.0-12.0) sec INR (<1.2) APTT (22.0-30.0) sec ABG pH (7.35-7.45) ABG pCO2 (35-45) mmHg ABG pO2 (83-108) mmHg ABG Total CO2 (19-24) mmol/L ABG O2 Saturation (94-97) % ABG Hematocrit (34.0-46.0) % ABG Potassium (3.4-4.5) mmol/L ABG Ionized Calcium (4.5-5.3) mg/dL ABG Glucose (75-99) mg/dL ABG Lactic Acid (0.5-1.6) mmol/L Hemoglobin (13.0-17.5) gm/dL Chloride 109 H (98-107) mmol/L Glucose 118 H (74-99) mg/dL POC Glucose (mg/dL) 128 H 122 H (75-99) mg/dL Calcium 8.2 L (8.4-10.2) mg/dL Magnesium (1.6-2.3) mg/dL Alkaline Phosphatase 30 L (38-126) U/L Total Protein 5.0 L (6.3-8.2) g/dL Albumin 3.3 L (3.5-5.0) g/dL Arterial Blood Potassium (3.4-4.5) mmol/L Arterial Blood Glucose (75-99) mg/dL Crossmatch 02/06/20 02/06/20 Range/Units 06:48 08:25 WBC (3.8-10.6) k/uL RBC (4.30-5.90) m/uL Hgb (13.0-17.5) gm/dL Hct (39.0-53.0) % Plt Count (150-450) k/uL Neutrophils # (1.3-7.7) k/uL Lymphocytes # (1.0-4.8) k/uL PT (9.0-12.0) sec INR (<1.2) APTT (22.0-30.0) sec ABG pH (7.35-7.45) ABG pCO2 (35-45) mmHg ABG pO2 (83-108) mmHg ABG Total CO2 (19-24) mmol/L ABG O2 Saturation (94-97) % ABG Hematocrit (34.0-46.0) % ABG Potassium (3.4-4.5) mmol/L ABG Ionized Calcium (4.5-5.3) mg/dL ABG Glucose (75-99) mg/dL ABG Lactic Acid (0.5-1.6) mmol/L Hemoglobin (13.0-17.5) gm/dL Chloride (98-107) mmol/L Glucose (74-99) mg/dL POC Glucose (mg/dL) 147 H 146 H (75-99) mg/dL Calcium (8.4-10.2) mg/dL Magnesium (1.6-2.3) mg/dL Alkaline Phosphatase (38-126) U/L Total Protein (6.3-8.2) g/dL Albumin (3.5-5.0) g/dL Arterial Blood Potassium (3.4-4.5) mmol/L Arterial Blood Glucose (75-99) mg/dL Crossmatch Assessment and Plan Assessment: (1) CAD (coronary artery disease) severe multivessel,status post CABG Current Visit: No Status: Acute Code(s): I25.10 - ATHSCL HEART DISEASE OF [place] CORONARY ARTERY W/O ANG PCTRS SNOMED Code(s): 69052411 (2) hypotension, secondary to the above (3) history of hypertension (4) osteoarthritis (5) prostate cancer, status post prostatectomy (6) hyperlipidemia (7) acute blood loss anemia, postoperative, expected, suspect dilutional Plan: Continue on current medication regime ,monitoring and symptomatic treatment. Aggressive pulmonary toileting with incentive spirometer reinforced. Pain management. Nitroglycerin drip being discontinued. Increase activity as tolerated. Close monitoring of blood sugars .Follow with multiple consults closely. The impression and plan of care has been dictated as directed. : I performed a history and examination of this patient, discussed the same with the dictator. I agree with the dictator's note ,documented as a scribe. Any additional findings or plans will be noted.
[2020-02-06 13:11] LABS: Glucose,Whole Blood 125 mg/dL (75-99)
[2020-02-06] MEDS: METOCLOPRAMIDE 5 MG/ML 2 ML VIAL IVP PRN ×2 (13:12→19:09)
[2020-02-06] MEDS: amLODIPine 2.5 MG TAB PO SCH (13:46)
[2020-02-06 14:59] LABS: Glucose,Whole Blood 124 mg/dL (75-99)
--- NOTE | 2020-02-06 16:02 | P.PN ---
Subjective Progress Note Date: 02/06/20 02/05/2020, I'm seeing this patient. In the intensive care unit. The patient underwent three-vessel bypass surgery including a GONZALEZ to LAD, SVG to RCA and left radial to OM. The patient is currently in the intensive care unit. He was brought in with some sedation with propofol. The patient was on a SIMV mode of ventilation with a tidal volume of 550 at the rate of 12 with a FiO2 of 100% and a PEEP of 5. The blood gases was noted. The chest x-ray was noted. The patient adequate expansion of both lungs and there was no evidence of any pneumothorax. Hemodynamically, the patient is a PA pressure of 27/13 with a cardiac output of 9.1 and an index of 4.2. The patient was on a nitroglycerin drip. The patient was hemodynamically stable. Output from the chest tubes showed that the patient had a total of 300 mL from the right chest tube, 140 mL from the mediastinum and 500 mL from the left chest tube. He is on a nitroglycerin drip for now. Hemodynamically stable. Adequate urine output. As the patient was taken off the sedation, the patient showed adequate weaning parameters. The patient was placed on a CPAP trial and the blood gases showed some acidosis with a pH of 7.24 with a pCO2 of 54 on the patient's aorta was 108. I think his acidosis was related to the patient's ongoing sedation. He was given more time and as the patient became more awake he was extubated and the patient showed adequate minute ventilation and adequate ability to generate enough tidal volumes above 400 mL. Accordingly, the patient was extubated. On 02/06/2020, the patient is extubated and the patient is doing well. Main complaint is pain across the chest as the patient has undergone thoracotomy. In terms of level of alertness, the patient is fully awake and alert and the patient is following commands and answering questions appropriately. The patient has been on 2 L of oxygen by nasal cannula with pulse ox of 99%. IV fluids to KVO. The patient has a mediastinal chest tube and the left and a right pleural chest tube. Output from the chest is a been noted. The chest x- ray shows adequate expansion of both lungs and there is no evidence of any pneumothorax. There is no evidence of any air leak. The patient is off the nitroglycerin drip. The patient is on no pressors for now. He is postop day #1. Objective - Vital Signs Vital signs: Vital Signs Temp 98.1 F 02/06/20 12:00 Pulse 72 02/06/20 15:37 Resp 18 02/06/20 15:00 BP 109/75 02/06/20 15:00 Pulse Ox 98 02/06/20 15:00 Intake & Output 02/05/20 02/06/20 02/06/20 18:59 06:59 18:59 Intake Total 961.266 7404.953 1252.302 Output Total 3610 1240 639 Balance -3010.393 363.953 613.302 Weight 94.3 kg 94.3 kg Intake: IV 32 1176 1060 Albumin Human 25% 50 ml 100 In Empty Bag 1 bag @ 100 mls/hr IVPB ONCE ONE Rx#: [id number] Albumin Human 5% 250 ml 250 750 In Empty Bag 1 bag @ 250 mls/hr IVPB Q1HR PRN Rx#: [id number] CO/CI 80 40 Magnesium Sulfate-D5w Pmx 100 1 gm In Dextrose/Water 1 100ml.bag @ 100 mls/hr IVPB Q1H LEANNE Rx#: [id number] Pressure bags 96 60 Sodium Chloride 0.9% 1, 550 210 000 ml @ 20 mls/hr IV . Q24H LEANNE Rx#:[id number] Intake, IV Titration 567.607 427.953 72.302 Amount ACETAMINOPHEN IV (For NPO 100 ) 1,000 mg In Empty Bag 1 bag @ 400 mls/hr IVPB Q6H LEANNE Rx#:[id number] Albumin Human 5% 250 ml 250 In Empty Bag 1 bag @ 250 mls/hr IVPB Q1HR PRN Rx#: [id number] Insulin Regular 100 unit 1.5 26.453 17.802 In Sodium Chloride 0.9% 100 ml @ Per Protocol IV .Q0M LEANNE Rx#:[id number] Nitroglycerin-D5w Pmx 50 6.0 1.5 4.5 mg In Dextrose/Water 1 250ml.bag @ 5 MCG/MIN 1.5 mls/hr IV .Q24H LEANNE Rx#: [id number] Potassium Chloride 10 meq 100 100 In Water For Injection 1 100ml.bag @ 100 mls/hr IVPB Q1H LEANNE Rx#: [id number] Sodium Chloride 0.9% 1, 200 50 000 ml @ 20 mls/hr IV . Q24H LAENNE Rx#:[id number] ceFAZolin 2 gm In Sodium 100 50 Chloride 0.9% 50 ml @ 100 mls/hr IVPB Q8HR LEANNE Rx# :[id number] propofoL 1,000 mg In 60.107 Empty Bag 1 bag @ Titrate IV .Q0M LEANNE Rx#: [id number] Oral 120 Output: Drainage 875 450 334 Left Arm [address] x 2 [address] 300 210 70 Urine 1735 790 305 Estimated Blood Loss 1000 Other: Voiding Method Indwelling Catheter Indwelling Catheter Indwelling Catheter ABP, PAP, CO, CI - Last Documented Arterial Blood Pressure 101/70 Pulmonary Artery Pressure 15/7 Cardiac Output 6.4 Cardiac Index 3.0 - Exam - Constitutional General appearance: Present: average body habitus, cooperative, no acute distress - EENT Eyes: Present: normal appearance. Absent: scleral icterus - Neck Details: Neck is supple, right IJ Cordis was Shawmut-Mayela catheter in place and functioning. - Respiratory Details: Lung sounds essentially clear throughout, diminished was bilateral bases. No wheezes, rhonchi or crackles. Respirations are symmetrical and nonlabored. Oxygen saturation are 98% on 2 L nasal cannula. Achieving less than 500 mL on his incentive spirometry with encouragement. Mediastinal left and right pleural chest tubes remain in place to low continuous wall suction -20 cm H2O. No air leak is present. Draining thin serosanguineous drainage. Left pleural chest tube drained 85 mL output in the last 8 hours, 650 mL output since surgery, right pleural chest tube with 150 mL output in the last 8 hours, 520 mL output since surgery, mediastinal chest tube with 10 mL output in the last 8 hours and 180 mL output since surgery. - Cardiovascular Details: Regular rhythm and rate. S1 and S2 present, negative for S3, gallop or murmur. Sternum is stable. Bedside telemetry showing normal sinus rhythm heart rate 78 BPM. Atrial epicardial pacemaker wires in place and connected to a backup bedside pacemaker generator on an AAI 50. No edema present. Right IJ Shawmut-Mayela catheter in place with current hemodynamics showing a cardiac output 4.9, cardiac index 2.3, PA pressures 18/8, CVP 5 mmHg. Knee-high LILIA hose and sequential compression devices in place to his bilateral lower extremities. Heart hugger is in place and he is demonstrating appropriate use. - Gastrointestinal Gastrointestinal Comment(s): Abdomen is soft, nontender and nondistended. Hypoactive bowel sounds present in all 4 abdominal quadrants. No guarding or rigidity. No organomegaly appreciated. Tolerating oral intake. - Genitourinary Genitourinary Comment(s): Felipe catheter for accurate I&O. Draining clear erika urine. 440 mL output last 8 hours. - Integumentary Integumentary Comment(s): Skin is warm and dry. No clubbing or cyanosis is present. Midline sternal incision is clean, dry and approximated. No redness or drainage is present. Left arm radial artery harvest sites are clean, dry and approximated. No chey[place] inage or redness is present. AIDEE drain in place with scant serosanguineous drainage. Left lower extremity EVH site is clean, dry and approximated. No drainage redness is present. - Neurologic Neurologic: Present: CNII-XII intact - Musculoskeletal Musculoskeletal: Present: gait normal, generalized weakness, strength equal bilaterally - Psychiatric Psychiatric: Present: A&O x's 3, appropriate affect, intact judgment & insight - Labs CBC & Chem 7: 02/06/20 04:00 02/06/20 04:00 Labs: Abnormal Lab Results - Last 24 Hours (Table) 02/04/20 02/05/20 02/05/20 Range/Units 06:28 15:46 16:07 WBC (3.8-10.6) k/uL RBC (4.30-5.90) m/uL Hgb (13.0-17.5) gm/dL Hct (39.0-53.0) % Plt Count (150-450) k/uL Neutrophils # (1.3-7.7) k/uL Lymphocytes # (1.0-4.8) k/uL ABG pH 7.46 H (7.35-7.45) ABG pCO2 32 L (35-45) mmHg ABG pO2 >400 H (83-108) mmHg ABG O2 Saturation 100.0 H (94-97) % Chloride (98-107) mmol/L Glucose (74-99) mg/dL POC Glucose (mg/dL) 113 H (75-99) mg/dL Calcium (8.4-10.2) mg/dL Alkaline Phosphatase (38-126) U/L Total Protein (6.3-8.2) g/dL Albumin (3.5-5.0) g/dL Crossmatch See Detail 02/05/20 02/05/20 02/05/20 Range/Units 17:06 17:58 18:02 WBC (3.8-10.6) k/uL RBC (4.30-5.90) m/uL Hgb (13.0-17.5) gm/dL Hct (39.0-53.0) % Plt Count (150-450) k/uL Neutrophils # (1.3-7.7) k/uL Lymphocytes # (1.0-4.8) k/uL ABG pH 7.24 L (7.35-7.45) ABG pCO2 54 H (35-45) mmHg ABG pO2 (83-108) mmHg ABG O2 Saturation 98.0 H (94-97) % Chloride (98-107) mmol/L Glucose (74-99) mg/dL POC Glucose (mg/dL) 145 H 153 H (75-99) mg/dL Calcium (8.4-10.2) mg/dL Alkaline Phosphatase (38-126) U/L Total Protein (6.3-8.2) g/dL Albumin (3.5-5.0) g/dL Crossmatch 02/05/20 02/05/20 02/05/20 Range/Units 18:03 19:04 19:55 WBC 11.3 H (3.8-10.6) k/uL RBC 2.90 L (4.30-5.90) m/uL Hgb 9.1 L D (13.0-17.5) gm/dL Hct 27.0 L (39.0-53.0) % Plt Count (150-450) k/uL Neutrophils # 9.2 H (1.3-7.7) k/uL Lymphocytes # (1.0-4.8) k/uL ABG pH (7.35-7.45) ABG pCO2 (35-45) mmHg ABG pO2 (83-108) mmHg ABG O2 Saturation (94-97) % Chloride (98-107) mmol/L Glucose (74-99) mg/dL POC Glucose (mg/dL) 157 H 162 H (75-99) mg/dL Calcium (8.4-10.2) mg/dL Alkaline Phosphatase (38-126) U/L Total Protein (6.3-8.2) g/dL Albumin (3.5-5.0) g/dL Crossmatch 02/05/20 02/05/20 02/05/20 Range/Units 20:57 21:00 21:52 WBC (3.8-10.6) k/uL RBC 2.72 L (4.30-5.90) m/uL Hgb 8.3 L (13.0-17.5) gm/dL Hct 25.2 L (39.0-53.0) % Plt Count (150-450) k/uL Neutrophils # 8.7 H (1.3-7.7) k/uL Lymphocytes # 0.4 L (1.0-4.8) k/uL ABG pH (7.35-7.45) ABG pCO2 (35-45) mmHg ABG pO2 (83-108) mmHg ABG O2 Saturation (94-97) % Chloride (98-107) mmol/L Glucose (74-99) mg/dL POC Glucose (mg/dL) 141 H 124 H (75-99) mg/dL Calcium (8.4-10.2) mg/dL Alkaline Phosphatase (38-126) U/L Total Protein (6.3-8.2) g/dL Albumin (3.5-5.0) g/dL Crossmatch 02/05/20 02/06/20 02/06/20 Range/Units 22:56 00:09 01:06 WBC (3.8-10.6) k/uL RBC (4.30-5.90) m/uL Hgb (13.0-17.5) gm/dL Hct (39.0-53.0) % Plt Count (150-450) k/uL Neutrophils # (1.3-7.7) k/uL Lymphocytes # (1.0-4.8) k/uL ABG pH (7.35-7.45) ABG pCO2 (35-45) mmHg ABG pO2 (83-108) mmHg ABG O2 Saturation (94-97) % Chloride (98-107) mmol/L Glucose (74-99) mg/dL POC Glucose (mg/dL) 110 H 137 H 126 H (75-99) mg/dL Calcium (8.4-10.2) mg/dL Alkaline Phosphatase (38-126) U/L Total Protein (6.3-8.2) g/dL Albumin (3.5-5.0) g/dL Crossmatch 02/06/20 02/06/20 02/06/20 Range/Units 01:59 03:03 04:00 WBC (3.8-10.6) k/uL RBC 2.50 L (4.30-5.90) m/uL Hgb 7.8 L (13.0-17.5) gm/dL Hct 23.1 L (39.0-53.0) % Plt Count 114 L (150-450) k/uL Neutrophils # (1.3-7.7) k/uL Lymphocytes # 0.4 L (1.0-4.8) k/uL ABG pH (7.35-7.45) ABG pCO2 (35-45) mmHg ABG pO2 (83-108) mmHg ABG O2 Saturation (94-97) % Chloride (98-107) mmol/L Glucose (74-99) mg/dL POC Glucose (mg/dL) 111 H 128 H (75-99) mg/dL Calcium (8.4-10.2) mg/dL Alkaline Phosphatase (38-126) U/L Total Protein (6.3-8.2) g/dL Albumin (3.5-5.0) g/dL Crossmatch 02/06/20 02/06/20 02/06/20 Range/Units 04:00 04:01 04:59 WBC (3.8-10.6) k/uL RBC (4.30-5.90) m/uL Hgb (13.0-17.5) gm/dL Hct (39.0-53.0) % Plt Count (150-450) k/uL Neutrophils # (1.3-7.7) k/uL Lymphocytes # (1.0-4.8) k/uL ABG pH (7.35-7.45) ABG pCO2 (35-45) mmHg ABG pO2 (83-108) mmHg ABG O2 Saturation (94-97) % Chloride 109 H (98-107) mmol/L Glucose 118 H (74-99) mg/dL POC Glucose (mg/dL) 128 H 122 H (75-99) mg/dL Calcium 8.2 L (8.4-10.2) mg/dL Alkaline Phosphatase 30 L (38-126) U/L Total Protein 5.0 L (6.3-8.2) g/dL Albumin 3.3 L (3.5-5.0) g/dL Crossmatch 02/06/20 02/06/20 02/06/20 Range/Units 06:48 08:25 09:16 WBC (3.8-10.6) k/uL RBC (4.30-5.90) m/uL Hgb (13.0-17.5) gm/dL Hct (39.0-53.0) % Plt Count (150-450) k/uL Neutrophils # (1.3-7.7) k/uL Lymphocytes # (1.0-4.8) k/uL ABG pH (7.35-7.45) ABG pCO2 (35-45) mmHg ABG pO2 (83-108) mmHg ABG O2 Saturation (94-97) % Chloride (98-107) mmol/L Glucose (74-99) mg/dL POC Glucose (mg/dL) 147 H 146 H 139 H (75-99) mg/dL Calcium (8.4-10.2) mg/dL Alkaline Phosphatase (38-126) U/L Total Protein (6.3-8.2) g/dL Albumin (3.5-5.0) g/dL Crossmatch 02/06/20 02/06/20 02/06/20 Range/Units 11:16 13:09 14:57 WBC (3.8-10.6) k/uL RBC (4.30-5.90) m/uL Hgb (13.0-17.5) gm/dL Hct (39.0-53.0) % Plt Count (150-450) k/uL Neutrophils # (1.3-7.7) k/uL Lymphocytes # (1.0-4.8) k/uL ABG pH (7.35-7.45) ABG pCO2 (35-45) mmHg ABG pO2 (83-108) mmHg ABG O2 Saturation (94-97) % Chloride (98-107) mmol/L Glucose (74-99) mg/dL POC Glucose (mg/dL) 138 H 125 H 124 H (75-99) mg/dL Calcium (8.4-10.2) mg/dL Alkaline Phosphatase (38-126) U/L Total Protein (6.3-8.2) g/dL Albumin (3.5-5.0) g/dL Crossmatch Assessment and Plan Plan: 1 coronary artery bypass surgery. The patient underwent three-vessel bypass utilizing a GONZALEZ to LAD, saphenous vein graft RCA and radial to OM. The patient is currently postop day #1. Hemodynamically stable. Adequate cardiac output. The patient is off pressors and the patient is not taking any form of inotropes. The patient is also off the nitroglycerin drip. 2 post thoracotomy, patient has extubated within 6 hours of arriving to the ICU. Chest x-ray was noted. Output from the chest tube of been noted. The patient has right pleural, left pleural and mediastinal chest tube. The chest tubes will be kept in place for now. We'll continue 10 using incentive spirometer. The patient was extubated to 2 L of oxygen by nasal cannula. 3 coronary artery disease withmultivessel coronary artery disease with 90%occlusion of the proximal LAD, 60-70% occlusion of the distal LAD, 99% occlusion of the OM1 and 100% occlusion of the RCA. The plan is for coronary artery revascularization bypass surgery that'll be done tomorrow. Currently free of any chest pain and the patient is hemodynamically stable. 4 hypertension 5 prostate cancer Plan Condition is stable. Continue using incentive spirometer Monitor the output from the chest tube Continue the combination of aspirin and Plavix and beta blockers Yolyn for pain control Repeat chest x-ray in the morning Discontinue the Shawmut-Mayela catheter We'll continue to follow.
[2020-02-06 17:17] LABS: Glucose,Whole Blood 127 mg/dL (75-99)
[2020-02-06 19:06] LABS: Glucose,Whole Blood 121 mg/dL (75-99)
[2020-02-06 20:27] LABS: Glucose,Whole Blood 129 mg/dL (75-99)
[2020-02-06] MEDS: MELATONIN 5 MG TABLET PO SCH (21:49)
[2020-02-06] MEDS: SENNOSIDES-DOCUSATE SODIUM 1 EACH TAB PO SCH (21:49)
[2020-02-06 21:54] LABS: Glucose,Whole Blood 117 mg/dL (75-99)
[2020-02-06] MEDS: INSULIN REGULAR 100 UNIT in SODIUM CHLORIDE 0.9% 100 ML IV SCH (21:54)
[2020-02-07 00:27] LABS: Glucose,Whole Blood 104 mg/dL (75-99)
[2020-02-07] MEDS: KETOROLAC 15 MG/ML 1 ML VIAL IVP SCH ×5 (00:35→23:14)
[2020-02-07] MEDS: HEPARIN SODIUM,PORCINE 5,000 UNIT/ML 1 ML VIAL SQ SCH ×4 (00:35→23:13)
[2020-02-07 02:07] LABS: Glucose,Whole Blood 115 mg/dL (75-99)
[2020-02-07 04:07] LABS: Glucose,Whole Blood 117 mg/dL (75-99)
[2020-02-07 04:22] LABS: Basophils % (A) 0 %; Eosinophils % (A) 0 %; HCT 22.1 % (39.0-53.0); HGB 7.3 gm/dL (13.0-17.5); Lymphocytes # (A) 0.8 k/uL (1.0-4.8); Lymphocytes % (A) 10 %; MCH 30.6 pg (25.0-35.0); MCHC 32.9 g/dL (31.0-37.0); MCV 92.8 fL (80.0-100.0); Mean Platelet Volume 9.5; Monocytes # (A) 0.7 k/uL (0-1.0); Monocytes % (A) 8 %; Neutrophils # (A) 6.3 k/uL (1.3-7.7); Neutrophils % (A) 79 %; Platelet Count 101 k/uL (150-450); RBC 2.39 m/uL (4.30-5.90); RDW 13.3 % (11.5-15.5); WBC 7.9 k/uL (3.8-10.6)
[2020-02-07 04:26] LABS: Ionized Calcium 5.1 mg/dL (4.5-5.3)
[2020-02-07 04:32] LABS: ALT 14 U/L (4-49); AST 36 U/L (17-59); African American GFR (CKD) >90 (>60 ml/min/1.73 sqM); Albumin 3.4 g/dL (3.5-5.0); Alkaline Phosphatase 35 U/L (38-126); Anion Gap 4 mmol/L; Blood Urea Nitrogen 18 mg/dL (9-20); Calcium 8.6 mg/dL (8.4-10.2); Carbon Dioxide 23 mmol/L (22-30); Chloride 107 mmol/L (98-107); Glucose 105 mg/dL (74-99); Non-African American GFR(CKD) >90 (>60 ml/min/1.73 sqM); Potassium 4.2 mmol/L (3.5-5.1); Sodium 134 mmol/L (137-145); Total Bilirubin 0.6 mg/dL (0.2-1.3); Total Protein 5.2 g/dL (6.3-8.2)
[2020-02-07] MEDS: HYDROcodone/APAP 7.5-325MG 1 EACH TAB PO PRN ×2 (05:20→09:13)
[2020-02-07 05:53] LABS: Glucose,Whole Blood 121 mg/dL (75-99)
--- NOTE | 2020-02-07 07:42 | PN ---
PROGRESS NOTE Mr. Coy is a 59-year-old male who underwent coronary artery bypass grafting. He is feeling better today. He is sitting up in the chair. He denies any chest pain. He denies any dizziness or palpitation. He denies any nausea. He has soreness in the right side of the ribs, but his left side feels better. He continued to be in sinus mechanism. He is on no pressors. Hemodynamically, he is stable. He continues to be on aspirin once a day, amlodipine 2.5 mg daily, Lipitor 40 mg daily, Plavix 75 mg daily, metoprolol tartrate 25 mg twice a day. PHYSICAL EXAMINATION: Blood pressure 102/50 with a heart rate in the 80s. LUNGS: With few crackles at the bases. No wheezes. HEART: Regular rate and rhythm. S1, S2. No S3. No rub. ABDOMEN: Soft, nontender. EXTREMITIES: No edema. LAB DATA: Lab data revealed hemoglobin 7.3, BUN and creatinine of 18 and .82, potassium 4.2. IMPRESSION: 1. Status post coronary artery bypass grafting, stable. 2. History of hypertension. 3. Hyperlipidemia. RECOMMENDATION: We will continue present therapy. Continue incentive spirometry. Adjust the dose of his beta hannah gradually. Depending on his progress, further recommendation will be made. MMODL / IJN: [id number] /
[2020-02-07] MEDS: METOCLOPRAMIDE 5 MG/ML 2 ML VIAL IVP PRN (08:12)
[2020-02-07] MEDS: ATORVASTATIN 40 MG TAB PO SCH (08:12)
[2020-02-07] MEDS: METOPROLOL TARTRATE 25 MG TAB PO SCH ×2 (08:12→20:19)
[2020-02-07] MEDS: PANTOPRAZOLE 40 MG TABLET PO SCH (08:13)
[2020-02-07] MEDS: CLOPIDOGREL 75 MG TAB PO SCH (08:13)
[2020-02-07] MEDS: MUPIROCIN 2% OINT 22 GM TUBE NASAL SCH ×2 (08:13→20:20)
[2020-02-07] MEDS: ASPIRIN 325 MG TAB PO SCH (08:13)
[2020-02-07] MEDS: IPRATROPIUM-ALBUTEROL 3 ML NEB INHALATION SCH ×4 (08:18→19:53)
[2020-02-07] MEDS ORDERED: FUROSEMIDE 10 MG/ML 2 ML VIAL IV STA (08:41)
--- NOTE | 2020-02-07 08:51 | XR ---
EXAMINATION TYPE: XR chest 1V portable DATE OF EXAM: 02/07/2020 COMPARISON: 02/06/2020 HISTORY: Postop TECHNIQUE: Single frontal view of the chest is obtained. FINDINGS: [place]-Mayela catheter has been removed. No sizable pneumothorax. Diffuse interstitial pattern with bilateral infiltrate and pleural effusion noted. Cardiomegaly and postoperative change. Arthrop athy of the shoulders. A mediastinal drain no longer seen with certainty. A right-sided chest tube an d left-sided lower chest tube remain in position. IMPRESSION: 1. Postoperative change with diffuse pleural parenchymal changes correlate for CHF versus pneumonia.
[2020-02-07] MEDS: amLODIPine 2.5 MG TAB PO SCH (12:01)
[2020-02-07 12:02] LABS: Glucose,Whole Blood 128 mg/dL (75-99)
[2020-02-07] MEDS: INSULIN ASPART (NovoLOG) 100 UNIT/ML VIAL SQ SCH ×3 (12:03→20:20)
--- NOTE | 2020-02-07 12:32 | P.PN ---
Subjective Progress Note Date: 02/07/20 Patient seen post heart cath with triple-vessel disease currently awaiting open heart surgery scheduled for tomorrow. He has no current complaints. He is resting comfortably afebrile. 02/06/2020 status post CABG, postop day #1. Tolerated procedure well. Extubated, maintaining O2 sats of 100% on 2 L nasal cannula. Received 250 MLS of albumin last night for hypotension. Positive pain, Marion dose increased. Federico-Synephrine weaned off, currently maintained on nitroglycerin and insulin drips. Telemetry sinus rhythm. Blood sugars controlled. Chest x-ray reported persistent basilar atelectatic changes, difficult to exclude minimal effusion. Hemoglobin 7.8. 02/07/2020 hemodynamically stable, telemetry sinus rhythm . Weaned off all drips with the exception of insulin which is being converted to sliding scale .blood sugars controlled .complaints of spasming/cramping around right chest tube site. Diet intake fair, passing flatus. T-max 99.1, WBC within normal limits.CXR reporting diffuse pleural parenchymal changes, diffuse interstitial pattern with bilateral infiltrates. Received a dose of Lasix IV push this morning. Maintaining O2 sats in the high 90s on 2 L nasal cannula. Hemoglobin 7.3, platelets 101. Objective - Vital Signs Vital signs: Vital Signs Temp 99.1 F 02/07/20 08:00 Pulse 89 02/07/20 09:00 Resp 22 02/07/20 09:00 BP 124/90 02/07/20 09:00 Pulse Ox 97 02/07/20 09:00 Intake & Output 02/06/20 02/07/20 02/07/20 18:59 06:59 18:59 Intake Total 1433.761 321.557 175 Output Total 804 915 100 Balance 629.761 -593.443 75 Weight 94.3 kg 94 kg Intake: IV 1138 309 75 Albumin Human 5% 250 ml 750 In Empty Bag 1 bag @ 250 mls/hr IVPB Q1HR PRN Rx#: [id number] CO/CI 40 Pressure bags 78 69 15 Sodium Chloride 0.9% 1, 270 240 60 000 ml @ 20 mls/hr IV . Q24H LEANNE Rx#:[id number] Intake, IV Titration 75.761 12.557 Amount Insulin Regular 100 unit 21.261 12.557 In Sodium Chloride 0.9% 100 ml @ Per Protocol IV .Q0M LEANNE Rx#:[id number] Nitroglycerin-D5w Pmx 50 4.5 mg In Dextrose/Water 1 250ml.bag @ 5 MCG/MIN 1.5 mls/hr IV .Q24H LEANNE Rx#: [id number] ceFAZolin 2 gm In Sodium 50 Chloride 0.9% 50 ml @ 100 mls/hr IVPB Q8HR LEANNE Rx# :[id number] Oral 220 100 Output: Drainage 404 420 50 Left Arm [address] x 2 [address] 80 160 50 Urine 400 495 50 Other: Voiding Method Indwelling Catheter Indwelling Catheter ABP, PAP, CO, CI - Last Documented Arterial Blood Pressure 143/78 Pulmonary Artery Pressure 15/7 Cardiac Output 6.4 Cardiac Index 3.0 - Exam - Exam GENERAL: Sitting up in bed, chest tube discomfort, no acute distress. HEENT: Head is atraumatic, normocephalic. Pupils are equal, round, and reactive to light. Sclerae anicteric. Conjunctivae are clear. Mucus membranes of the mouth are moist. Neck is supple. RESPIRATORY: Clear to auscultation. No wheezes, rales, or rhonchi, bilateral bases diminished. CARDIOVASCULAR: Regular rate and rhythm. S1 and S2 noted. No rub, No systolic or diastolic murmur auscultated. No JVD noted. No S3 or S4 noted. GASTROINTESTINAL: Nondistended, nontender .Abdomen soft and round. Positive bowel sounds. INTEGUMENTARY: No rashes noted. No cellulitis noted. EXTREMITIES: 2+ peripheral pulses. No evidence of peripheral edema. No calf tenderness noted. NEUROLOGIC: Cranial nerves II-XII intact. PSYCHIATRIC: Awake, alert, and oriented X 3. Appropriate affect. Intact judgement and insight. - Labs CBC & Chem 7: 02/07/20 04:09 02/07/20 04:09 Labs: Abnormal Lab Results - Last 24 Hours (Table) 02/06/20 02/06/20 02/06/20 Range/Units 11:16 13:09 14:57 RBC (4.30-5.90) m/uL Hgb (13.0-17.5) gm/dL Hct (39.0-53.0) % Plt Count (150-450) k/uL Lymphocytes # (1.0-4.8) k/uL Sodium (137-145) mmol/L Glucose (74-99) mg/dL POC Glucose (mg/dL) 138 H 125 H 124 H (75-99) mg/dL Alkaline Phosphatase (38-126) U/L Total Protein (6.3-8.2) g/dL Albumin (3.5-5.0) g/dL 02/06/20 02/06/20 02/06/20 Range/Units 17:15 19:05 20:25 RBC (4.30-5.90) m/uL Hgb (13.0-17.5) gm/dL Hct (39.0-53.0) % Plt Count (150-450) k/uL Lymphocytes # (1.0-4.8) k/uL Sodium (137-145) mmol/L Glucose (74-99) mg/dL POC Glucose (mg/dL) 127 H 121 H 129 H (75-99) mg/dL Alkaline Phosphatase (38-126) U/L Total Protein (6.3-8.2) g/dL Albumin (3.5-5.0) g/dL 02/06/20 02/07/20 02/07/20 Range/Units 21:53 00:26 02:06 RBC (4.30-5.90) m/uL Hgb (13.0-17.5) gm/dL Hct (39.0-53.0) % Plt Count (150-450) k/uL Lymphocytes # (1.0-4.8) k/uL Sodium (137-145) mmol/L Glucose (74-99) mg/dL POC Glucose (mg/dL) 117 H 104 H 115 H (75-99) mg/dL Alkaline Phosphatase (38-126) U/L Total Protein (6.3-8.2) g/dL Albumin (3.5-5.0) g/dL 02/07/20 02/07/20 02/07/20 Range/Units 04:06 04:09 04:09 RBC 2.39 L (4.30-5.90) m/uL Hgb 7.3 L (13.0-17.5) gm/dL Hct 22.1 L (39.0-53.0) % Plt Count 101 L (150-450) k/uL Lymphocytes # 0.8 L (1.0-4.8) k/uL Sodium 134 L (137-145) mmol/L Glucose 105 H (74-99) mg/dL POC Glucose (mg/dL) 117 H (75-99) mg/dL Alkaline Phosphatase 35 L (38-126) U/L Total Protein 5.2 L (6.3-8.2) g/dL Albumin 3.4 L (3.5-5.0) g/dL 02/07/20 Range/Units 05:51 RBC (4.30-5.90) m/uL Hgb (13.0-17.5) gm/dL Hct (39.0-53.0) % Plt Count (150-450) k/uL Lymphocytes # (1.0-4.8) k/uL Sodium (137-145) mmol/L Glucose (74-99) mg/dL POC Glucose (mg/dL) 121 H (75-99) mg/dL Alkaline Phosphatase (38-126) U/L Total Protein (6.3-8.2) g/dL Albumin (3.5-5.0) g/dL Assessment and Plan Assessment: (1) CAD (coronary artery disease) severe multivessel,status post CABG Current Visit: No Status: Acute Code(s): I25.10 - ATHSCL HEART DISEASE OF [place] CORONARY ARTERY W/O ANG PCTRS SNOMED Code(s): 51275260 (2) hypotension, secondary to the above, resolved (3) history of hypertension (4) osteoarthritis (5) prostate cancer, status post prostatectomy (6) hyperlipidemia (7) acute blood loss anemia, postoperative, expected, suspect dilutional Plan: Continue on current medication regime ,monitoring and symptomatic treat ment. Pain management . Increase activity as tolerated. Continue aggressive pulmonary toileting with incentive spirometer reinforced. Insulin converted to sliding scale .Close monitoring of blood sugars .Follow with multiple consults closely. The impression and plan of care has been dictated as directed. : I performed a history and examination of this patient, discussed the same with the dictator. I agree with the dictator's note ,documented as a scribe. Any additional findings or plans will be noted.
--- NOTE | 2020-02-07 12:55 | P.PN ---
Subjective Progress Note Date: 02/07/20 Principal diagnosis: Symptomatic multivessel coronary artery disease. Past medical history significant for hypertension, osteoarthritis, prostate cancer status post prostatectomy at age 47, family history of early onset coronary artery disease with his grandfather being diagnosed in his early 40s with myocardial infarction and coronary artery disease. POD #2 triple-vessel coronary artery bypass grafting using the left internal mammary artery to left anterior descending coronary artery, the left radial artery from the aorta to the obtuse marginal coronary artery, and a reverse greater saphenous vein graft from the aorta to the right coronary artery. Exclusion of left atrial appendage using a 35 mm Atriclip, endoscopic harvesting of the left radial artery and the left greater saphenous vein. Intraoperative transesophageal echocardiogram, epi-aortic scanning and graft flow measurements using the [employer] system. Postoperative acute blood loss anemia, an expected outcome, dilutional The patient was seen in follow-up today 02/07/2020 at his bedside in the intensi ve care unit. Currently the patient is sitting up to the bedside chair, is awake, alert and oriented 3 and is in no acute distress. Denies any complaints of shortness of breath although continues to complain of some surgical type pain to his chest tube insertion sites rating his pain 7 out of 10 on the pain scale at this time. He remains hemodynamically stable and is currently on no inotropic or pressor support. Right IJ cordis remains in place with continuous CVP monitoring, current CVP pressure 10 mmHg. Oxygen saturations are 97% on 2 L nasal cannula and he is achieving 750 mL with much encouragement on his incentive spirometry. Mediastinal, left and right pleural chest tubes remain in place to low continuous wall suction -20 cm H2O. No air leak is present. Draining thin serosanguineous drainage. Left pleural chest tube drained 170 mL output in the last 8 hours and 350 mL output in the last 24 hours, mediastinal chest tubes drained 40 mL output in the last 8 hours and 100 mL output in the last 24 hours, and his right pleural chest tube drained 120 mL output in the last 8 hours and 200 mL output in the last 24 hours. He reports he has been ambulating in the intensive care unit hallway with minimal assistance from nursing staff and physical/occupational therapy staff. Objective - Vital Signs Vital signs: Vital Signs Temp 99.1 F 02/07/20 08:00 Pulse 81 02/07/20 10:00 Resp 19 02/07/20 10:00 BP 125/82 02/07/20 10:00 Pulse Ox 97 02/07/20 10:00 Intake & Output 02/06/20 02/07/20 02/07/20 18:59 06:59 18:59 Intake Total 1433.761 321.557 415 Output Total 804 915 625 Balance 629.761 -593.443 -210 Weight 94.3 kg 94 kg Intake: IV 1138 309 75 Albumin Human 5% 250 ml 750 In Empty Bag 1 bag @ 250 mls/hr IVPB Q1HR PRN Rx#: [id number] CO/CI 40 Pressure bags 78 69 15 Sodium Chloride 0.9% 1, 270 240 60 000 ml @ 20 mls/hr IV . Q24H LEANNE Rx#:[id number] Intake, IV Titration 75.761 12.557 Amount Insulin Regular 100 unit 21.261 12.557 In Sodium Chloride 0.9% 100 ml @ Per Protocol IV .Q0M LEANNE Rx#:[id number] Nitroglycerin-D5w Pmx 50 4.5 mg In Dextrose/Water 1 250ml.bag @ 5 MCG/MIN 1.5 mls/hr IV .Q24H LEANNE Rx#: [id number] ceFAZolin 2 gm In Sodium 50 Chloride 0.9% 50 ml @ 100 mls/hr IVPB Q8HR LEANNE Rx# :[id number] Oral 220 340 Output: Drainage 404 420 50 Left Arm [address] x 2 [address] 80 160 50 Urine 400 495 575 Other: Voiding Method Indwelling Catheter Indwelling Catheter ABP, PAP, CO, CI - Last Documented Arterial Blood Pressure 143/78 Pulmonary Artery Pressure 15/7 Cardiac Output 6.4 Cardiac Index 3.0 - Constitutional General appearance: Present: average body habitus, cooperative, no acute distress - EENT Eyes: Present: normal appearance. Absent: scleral icterus ENT: Present: hearing grossly normal - Neck Details: Neck is supple, right IJ Cordis remains in place to continue CVP monitoring. - Respiratory Details: Lungs sounds essentially clear to his bilateral upper lobes, diminished bilateral bases. No wheezes, rhonchi or crackles. Respirations are symmetrical and nonlabored. Oxygen saturation are 97% on 2 L nasal cannula. Achieving 750 mL on his incentive spirometry. Mediastinal, right and left pleural chest tubes remain in place to low continuous wall suction -20 cm H2O. Draining thin serosanguineous drainage. No air leak is present. - Cardiovascular Details: Regular rhythm and rate. S1 and S2 present, negative for S3, gallop or murmur. Sternum is stable. Bedside telemetry showing normal sinus rhythm heart rate 85. Atrial epicardial pacemaker wires in place and grounded. Knee-high LILIA hose and sequential compression devices in place to his bilateral lower extremities. Heart hugger is in place and he is demonstrating appropriate use. No edema present. Right IJ Cordis in place with continuous CVP monitoring, current CVP pressure 10 mmHg. - Gastrointestinal Gastrointestinal Comment(s): Abdomen is soft, nontender and nondistended. Active bowel sounds present in all 4 abdominal quadrants. No guarding or rigidity. No organomegaly appreciated. Tolerating oral intake. Passing flatus. - Genitourinary Genitourinary Comment(s): Continues to void. 315 mL output in the last 8 hours. - Integumentary Integumentary Comment(s): Skin is warm and dry. No clubbing or cyanosis is present. Midline sternal incision is clean, dry and approximated. No drainage or redness is present. Dressing is clean, dry and intact. Left arm radial artery harvest sites clean, dry and approximated. No drainage or redness is present. Left lower extremity EVH site is clean, dry and approximated. No drainage or redness is present. - Neurologic Neurologic: Present: CNII-XII intact - Musculoskeletal Musculoskeletal: Present: gait normal, generalized weakness, strength equal bilaterally - Psychiatric Psychiatric: Present: A&O x's 3, appropriate affect, intact judgment & insight - Allied health notes Allied health notes reviewed: nursing - Labs CBC & Chem 7: 02/07/20 04:09 02/07/20 04:09 Labs: Abnormal Lab Results - Last 24 Hours (Table) 02/06/20 02/06/20 02/06/20 Range/Units 13:09 14:57 17:15 RBC (4.30-5.90) m/uL Hgb (13.0-17.5) gm/dL Hct (39.0-53.0) % Plt Count (150-450) k/uL Lymphocytes # (1.0-4.8) k/uL Sodium (137-145) mmol/L Glucose (74-99) mg/dL POC Glucose (mg/dL) 125 H 124 H 127 H (75-99) mg/dL Alkaline Phosphatase (38-126) U/L Total Protein (6.3-8.2) g/dL Albumin (3.5-5.0) g/dL 02/06/20 02/06/20 02/06/20 Range/Units 19:05 20:25 21:53 RBC (4.30-5.90) m/uL Hgb (13.0-17.5) gm/dL Hct (39.0-53.0) % Plt Count (150-450) k/uL Lymphocytes # (1.0-4.8) k/uL Sodium (137-145) mmol/L Glucose (74-99) mg/dL POC Glucose (mg/dL) 121 H 129 H 117 H (75-99) mg/dL Alkaline Phosphatase (38-126) U/L Total Protein (6.3-8.2) g/dL Albumin (3.5-5.0) g/dL 02/07/20 02/07/20 02/07/20 Range/Units 00:26 02:06 04:06 RBC (4.30-5.90) m/uL Hgb (13.0-17.5) gm/dL Hct (39.0-53.0) % Plt Count (150-450) k/uL Lymphocytes # (1.0-4.8) k/uL Sodium (137-145) mmol/L Glucose (74-99) mg/dL POC Glucose (mg/dL) 104 H 115 H 117 H (75-99) mg/dL Alkaline Phosphatase (38-126) U/L Total Protein (6.3-8.2) g/dL Albumin (3.5-5.0) g/dL 02/07/20 02/07/20 02/07/20 Range/Units 04:09 04:09 05:51 RBC 2.39 L (4.30-5.90) m/uL Hgb 7.3 L (13.0-17.5) gm/dL Hct 22.1 L (39.0-53.0) % Plt Count 101 L (150-450) k/uL Lymphocytes # 0.8 L (1.0-4.8) k/uL Sodium 134 L (137-145) mmol/L Glucose 105 H (74-99) mg/dL POC Glucose (mg/dL) 121 H (75-99) mg/dL Alkaline Phosphatase 35 L (38-126) U/L Total Protein 5.2 L (6.3-8.2) g/dL Albumin 3.4 L (3.5-5.0) g/dL 02/07/20 Range/Units 12:00 RBC (4.30-5.90) m/uL Hgb (13.0-17.5) gm/dL Hct (39.0-53.0) % Plt Count (150-450) k/uL Lymphocytes # (1.0-4.8) k/uL Sodium (137-145) mmol/L Glucose (74-99) mg/dL POC Glucose (mg/dL) 128 H (75-99) mg/dL Alkaline Phosphatase (38-126) U/L Total Protein (6.3-8.2) g/dL Albumin (3.5-5.0) g/dL - Imaging and Cardiology Chest x-ray: report reviewed, image reviewed Assessment and Plan Assessment: 1. Symptomatic multivessel coronary artery disease, postoperative triple-vessel coronary artery bypass grafting surgery 2. Preoperative shortness of breath on exertion, resolved 3. History of hypertension 4. History of prostate cancer status post prostatectomy at age 47 5. Osteoarthritis 6. Postoperative acute blood loss anemia, expected Plan: 1. Continue to maximize medical therapy with aspirin, Plavix and beta hannah. Will increase metoprolol tartrate 25 mg by mouth twice a day. 2. Lasix 20 mg IV 1 now. 3. Wean O2 as tolerated. Continue to encourage use of incentive spirometry 10 times every hour while awake. Bronchodilators per pulmonology/critical care management. 4. Will monitor daily labs and chest x-rays. Electrolytes replacement per protocol. 5. GI/DVT prophylaxis. 6. Pain control with current medication regimen. Discontinue Baldwin, start acetaminophen 1000 mg by mouth every 6 hours when necessary pain 7. Diabetes/insulin management per primary care service. 8. Discontinue right IJ Cordis. 9. Atrial epicardial pacemaker wires removed without incident. Bed rest for 1 hour post pacemaker wire removal. 10. Mediastinal, right and left pleural chest tubes removed without incident. 4 x 4 gauze to cover, impregnated Vaseline gauze to cover and secured with tape. 11. Daily weights using standup scale, no bed scale. 12. Increase Norvasc to 5 mg by mouth daily at noon for radial artery spasm prophylaxis. Please do not discontinue without discussing with cardiothoracic surgery service. Hold for systolic blood pressure less than 100 mmHg. 13. Increase activity as tolerated, physical/occupational therapy, and cardiac rehabilitation consulted. Out of bed for all meals. 14. Transfer orders placed to cardiac stepdown unit for further rehabilitation and monitoring. 15. More recommendations to follow based on patient's clinical course. Nurse practitioner note has been reviewed by the physician. Signing provider agrees with the above documented findings, assessment and plan of care. Time with Patient: Greater than 30
[2020-02-07] MEDS: ACETAMINOPHEN TAB 500 MG TAB PO PRN ×2 (14:53→20:24)
--- NOTE | 2020-02-07 15:21 | P.PN ---
Subjective Progress Note Date: 02/07/20 02/05/2020, I'm seeing this patient. In the intensive care unit. The patient underwent three-vessel bypass surgery including a GONZALEZ to LAD, SVG to RCA and left radial to OM. The patient is currently in the intensive care unit. He was brought in with some sedation with propofol. The patient was on a SIMV mode of ventilation with a tidal volume of 550 at the rate of 12 with a FiO2 of 100% and a PEEP of 5. The blood gases was noted. The chest x-ray was noted. The patient adequate expansion of both lungs and there was no evidence of any pneumothorax. Hemodynamically, the patient is a PA pressure of 27/13 with a cardiac output of 9.1 and an index of 4.2. The patient was on a nitroglycerin drip. The patient was hemodynamically stable. Output from the chest tubes showed that the patient had a total of 300 mL from the right chest tube, 140 mL from the mediastinum and 500 mL from the left chest tube. He is on a nitroglycerin drip for now. Hemodynamically stable. Adequate urine output. As the patient was taken off the sedation, the patient showed adequate weaning parameters. The patient was placed on a CPAP trial and the blood gases showed some acidosis with a pH of 7.24 with a pCO2 of 54 on the patient's aorta was 108. I think his acidosis was related to the patient's ongoing sedation. He was given more time and as the patient became more awake he was extubated and the patient showed adequate minute ventilation and adequate ability to generate enough tidal volumes above 400 mL. Accordingly, the patient was extubated. On 02/06/2020, the patient is extubated and the patient is doing well. Main complaint is pain across the chest as the patient has undergone thoracotomy. In terms of level of alertness, the patient is fully awake and alert and the patient is following commands and answering questions appropriately. The patient has been on 2 L of oxygen by nasal cannula with pulse ox of 99%. IV fluids to KVO. The patient has a mediastinal chest tube and the left and a right pleural chest tube. Output from the chest is a been noted. The chest x- ray shows adequate expansion of both lungs and there is no evidence of any pneumothorax. There is no evidence of any air leak. The patient is off the nitroglycerin drip. The patient is on no pressors for now. He is postop day #1. On 02/07/2020, the patient remains extubated. Doing well. Skeletal chest wall pain still present although the pain is under better control. He is currently on oxygen at 2 L per minute nasal cannula with a pulse of 77%. He is in a sinus rhythm at the rate of 18. All of the chest tubes have been removed earlier this morning. The patient had a right pleural, left pleural and the solid chest tubes and all of them are removed. The chest exit showed no evidence of any pn eumothorax. Some limited atelectatic changes and small effusion the lung bases are seen. No other significant events. He has an adequate urine output. No nausea. No vomiting. No diarrhea. No abdominal pain. No altered mentation. Objective - Vital Signs Vital signs: Vital Signs Temp 98.1 F 02/07/20 12:00 Pulse 86 02/07/20 12:00 Resp 21 02/07/20 12:00 BP 114/75 02/07/20 12:00 Pulse Ox 94 L 02/07/20 12:00 Intake & Output 02/06/20 02/07/20 02/07/20 18:59 06:59 18:59 Intake Total 1433.761 321.557 415 Output Total 804 915 625 Balance 629.761 -593.443 -210 Weight 94.3 kg 94 kg Intake: IV 1138 309 75 Albumin Human 5% 250 ml 750 In Empty Bag 1 bag @ 250 mls/hr IVPB Q1HR PRN Rx#: [id number] CO/CI 40 Pressure bags 78 69 15 Sodium Chloride 0.9% 1, 270 240 60 000 ml @ 20 mls/hr IV . Q24H [facility]AN[facility] Rx#:[id number] Intake, IV Titration 75.761 12.557 Amount Insulin Regular 100 unit 21.261 12.557 In Sodium Chloride 0.9% 100 ml @ Per Protocol IV .Q0M LEANNE Rx#:[id number] Nitroglycerin-D5w Pmx 50 4.5 mg In Dextrose/Water 1 250ml.bag @ 5 MCG/MIN 1.5 mls/hr IV .Q24H [facility]ANNE Rx#: [id number] ceFAZolin 2 gm In Sodium 50 Chloride 0.9% 50 ml @ 100 mls/hr IVPB Q8HR LEANNE Rx# :[id number] Oral 220 340 Output: Drainage 404 420 50 Left Arm [address] x 2 [address] 80 160 50 Urine 400 495 575 Other: Voiding Method Indwelling Catheter Indwelling Catheter Urinal # Voids 1 ABP, PAP, CO, CI - Last Documented Arterial Blood Pressure 143/78 Pulmonary Artery Pressure 15/7 Cardiac Output 6.4 Cardiac Index 3.0 - Exam - Constitutional General appearance: Present: average body habitus, cooperative, no acute distress - EENT Eyes: Present: normal appearance. Absent: scleral icterus ENT: Present: hearing grossly normal - Neck Details: Neck is supple, right IJ Cordis remains in place to continue CVP monitoring. - Respiratory Details: Lungs sounds essentially clear to his bilateral upper lobes, diminished bilateral bases. No wheezes, rhonchi or crackles. Respirations are symmetrical and nonlabored. Oxygen saturation are 97% on 2 L nasal cannula. Achieving 750 mL on his incentive spirometry. Mediastinal, right and left pleural chest tubes remain in place to low continuous wall suction -20 cm H2O. Draining thin serosanguineous drainage. No air leak is present. - Cardiovascular Details: Regular rhythm and rate. S1 and S2 present, negative for S3, gallop or murmur. Sternum is stable. Bedside telemetry showing normal sinus rhythm heart rate 85. Atrial epicardial pacemaker wires in place and grounded. Knee-high LILIA hose and sequential compression devices in place to his bilateral lower extremities. Heart hugger is in place and he is demonstrating appropriate use. No edema present. Right IJ Cordis in place with continuous CVP monitoring, current CVP pressure 10 mmHg. - Gastrointestinal Gastrointestinal Comment(s): Abdomen is soft, nontender and nondistended. Active bowel sounds present in all 4 abdominal quadrants. No guarding or rigidity. No organomegaly appreciated. Tolerating oral intake. Passing flatus. - Genitourinary Genitourinary Comment(s): Continues to void. 315 mL output in the last 8 hours. - Integumentary Integumentary Comment(s): Skin is warm and dry. No clubbing or cyanosis is present. Midline sternal incision is clean, dry and approximated. No drainage or redness is present. Dressing is clean, dry and intact. Left arm radial artery harvest sites clean, dry and approximated. No drainage or redness is present. Left lower extremity EVH site is clean, dry and approximated. No drainage or redness is present. - Neurologic Neurologic: Present: CNII-XII intact - Musculoskeletal Musculoskeletal: Present: gait normal, generalized weakness, strength equal bilaterally - Psychiatric - Labs CBC & Chem 7: 02/07/20 04:09 02/07/20 04:09 Labs: Abnormal Lab Results - Last 24 Hours (Table) 02/06/20 02/06/20 02/06/20 Range/Units 17:15 19:05 20:25 RBC (4.30-5.90) m/uL Hgb (13.0-17.5) gm/dL Hct (39.0-53.0) % Plt Count (150-450) k/uL Lymphocytes # (1.0-4.8) k/uL Sodium (137-145) mmol/L Glucose (74-99) mg/dL POC Glucose (mg/dL) 127 H 121 H 129 H (75-99) mg/dL Alkaline Phosphatase (38-126) U/L Total Protein (6.3-8.2) g/dL Albumin (3.5-5.0) g/dL 02/06/20 02/07/20 02/07/20 Range/Units 21:53 00:26 02:06 RBC (4.30-5.90) m/uL Hgb (13.0-17.5) gm/dL Hct (39.0-53.0) % Plt Count (150-450) k/uL Lymphocytes # (1.0-4.8) k/uL Sodium (137-145) mmol/L Glucose (74-99) mg/dL POC Glucose (mg/dL) 117 H 104 H 115 H (75-99) mg/dL Alkaline Phosphatase (38-126) U/L Total Protein (6.3-8.2) g/dL Albumin (3.5-5.0) g/dL 02/07/20 02/07/20 02/07/20 Range/Units 04:06 04:09 04:09 RBC 2.39 L (4.30-5.90) m/uL Hgb 7.3 L (13.0-17.5) gm/dL Hct 22.1 L (39.0-53.0) % Plt Count 101 L (150-450) k/uL Lymphocytes # 0.8 L (1.0-4.8) k/uL Sodium 134 L (137-145) mmol/L Glucose 105 H (74-99) mg/dL POC Glucose (mg/dL) 117 H (75-99) mg/dL Alkaline Phosphatase 35 L (38-126) U/L Total Protein 5.2 L (6.3-8.2) g/dL Albumin 3.4 L (3.5-5.0) g/dL 02/07/20 02/07/20 Range/Units 05:51 12:00 RBC (4.30-5.90) m/uL Hgb (13.0-17.5) gm/dL Hct (39.0-53.0) % Plt Count (150-450) k/uL Lymphocytes # (1.0-4.8) k/uL Sodium (137-145) mmol/L Glucose (74-99) mg/dL POC Glucose (mg/dL) 121 H 128 H (75-99) mg/dL Alkaline Phosphatase (38-126) U/L Total Protein (6.3-8.2) g/dL Albumin (3.5-5.0) g/dL Assessment and Plan Plan: 1 coronary artery bypass surgery. The patient underwent three-vessel bypass utilizing a GONZALEZ to LAD, saphenous vein graft RCA and radial to OM. The patient is currently postop day #2. Hemodynamically stable. Adequate cardiac output. The patient is off pressors and the patient is not taking any form of inotropes. 2 post thoracotomy, patient has extubated within 6 hours of arriving to the ICU. Chest x-ray was noted. Output from the chest tube of been noted. The patient has right pleural, left pleural and mediastinal chest tube. The chest tubes have been removed and the patient is doing very well on the incentive spirometer. Skeletal chest wall pain is under better control.. The patient was extubated to 2 L of oxygen by nasal cannula. 3 coronary artery disease withmultivessel coronary artery disease with 90%occlusion of the proximal LAD, 60-70% occlusion of the distal LAD, 99% occlusion of the OM1 and 100% occlusion of the RCA. The plan is for coronary artery revascularization bypass surgery that'll be done tomorrow. Currently free of any chest pain and the patient is hemodynamically stable. 4 hypertension 5 prostate cancer Plan Condition is stable. Continue using incentive spirometer Chest tubes have been removed Continue the combination of aspirin and Plavix and beta blockers [place] for pain control Repeat chest x-ray in the morning Ambulate the patient the hallway We'll continue to follow.
[2020-02-07 16:21] VITALS: RESP 18
[2020-02-07 17:05] LABS: Glucose,Whole Blood 125 mg/dL (75-99)
[2020-02-07 20:12] LABS: Glucose,Whole Blood 149 mg/dL (75-99)
[2020-02-07] MEDS: MELATONIN 5 MG TABLET PO SCH (20:20)
[2020-02-07] MEDS: SENNOSIDES-DOCUSATE SODIUM 1 EACH TAB PO SCH (20:21)
[2020-02-08 05:51] LABS: Glucose,Whole Blood 119 mg/dL (75-99)
[2020-02-08] MEDS: INSULIN ASPART (NovoLOG) 100 UNIT/ML VIAL SQ SCH ×2 (06:40→12:30)
[2020-02-08] MEDS: KETOROLAC 15 MG/ML 1 ML VIAL IVP SCH ×2 (06:43→11:41)
[2020-02-08] MEDS: PANTOPRAZOLE 40 MG TABLET PO SCH (06:44)
[2020-02-08] MEDS: IPRATROPIUM-ALBUTEROL 3 ML NEB INHALATION SCH ×3 (07:51→15:27)
[2020-02-08] MEDS: ACETAMINOPHEN TAB 500 MG TAB PO PRN (08:32)
[2020-02-08] MEDS: CLOPIDOGREL 75 MG TAB PO SCH (08:33)
[2020-02-08] MEDS: ASPIRIN 325 MG TAB PO SCH (08:33)
[2020-02-08] MEDS: HEPARIN SODIUM,PORCINE 5,000 UNIT/ML 1 ML VIAL SQ SCH (08:33)
[2020-02-08] MEDS: ATORVASTATIN 40 MG TAB PO SCH (08:34)
[2020-02-08] MEDS: MUPIROCIN 2% OINT 22 GM TUBE NASAL SCH (08:35)
[2020-02-08] MEDS ORDERED: METOPROLOL TARTRATE 50 MG TAB PO SCH (09:00)
--- NOTE | 2020-02-08 09:13 | P.PN ---
Subjective Progress Note Date: 02/08/20 Patient seen post heart cath with triple-vessel disease currently awaiting open heart surgery scheduled for tomorrow. He has no current complaints. He is resting comfortably afebrile. 02/06/2020 status post CABG, postop day #1. Tolerated procedure well. Extubated, maintaining O2 sats of 100% on 2 L nasal cannula. Received 250 MLS of albumin last night for hypotension. Positive pain, Melrude dose increased. Federico-Synephrine weaned off, currently maintained on nitroglycerin and insulin drips. Telemetry sinus rhythm. Blood sugars controlled. Chest x-ray reported persistent basilar atelectatic changes, difficult to exclude minimal effusion. Hemoglobin 7.8. 02/07/2020 hemodynamically stable, telemetry sinus rhythm . Weaned off all drips with the exception of insulin which is being converted to sliding scale .blood sugars controlled .complaints of spasming/cramping around right chest tube site. Diet intake fair, passing flatus. T-max 99.1, WBC within normal limits.CXR reporting diffuse pleural parenchymal changes, diffuse interstitial pattern with bilateral infiltrates. Received a dose of Lasix IV push this morning. Maintaining O2 sats in the high 90s on 2 L nasal cannula. Hemoglobin 7.3, platelets 101. 02/08/2020 chest tubes discontinued, transferred out of ICU yesterday. Ambulating, tolerating exertion well. Significant clinical improvement. T-max 99.2. Inspirometer up to 1500. Consuming approximately 50% of diet, denies nausea vomiting or diarrhea. Positive bowel movement. Blood sugars controlled. VSS. Maintaining O2 sats in the high 90s on room air. Chest x-ray pending. Pain controlled. Objective - Vital Signs Vital signs: Vital Signs Temp 99.2 F 02/08/20 03:15 Pulse 94 02/08/20 07:59 Resp 18 02/08/20 03:16 BP 115/69 02/08/20 03:15 Pulse Ox 97 02/08/20 03:15 Intake & Output 02/07/20 02/08/20 02/08/20 18:59 06:59 18:59 Intake Total 655 10 Output Total 625 Balance 30 10 Weight 97 kg Intake: IV 75 10 0.9 10 Pressure bags 15 Sodium Chloride 0.9% 1, 60 000 ml @ 20 mls/hr IV . Q24H LEANNE Rx#:[id number] Oral 580 Output: Drainage [address] x [address] 50 Urine 575 Other: Voiding Method Urinal Toilet # Voids 1 1 ABP, PAP, CO, CI - Last Documented Arterial Blood Pressure 143/78 Pulmonary Artery Pressure 15/7 Cardiac Output 6.4 Cardiac Index 3.0 - Exam - Exam GENERAL: Sitting up at side of bed,NAD. HEENT: Head is atraumatic, normocephalic. Pupils are equal, round, and reactive to light. Sclerae anicteric. Conjunctivae are clear. Mucus membranes of the mouth are moist. Neck is supple, no JVD. RESPIRATORY: Clear to auscultation. No wheezes, rales, or rhonchi, bilateral bases diminished. CARDIOVASCULAR: Regular rate and rhythm. S1 and S2 noted. No rub, No systolic or diastolic murmur auscultated. No S3 or S4 noted. GASTROINTESTINAL: Nondistended, nontender .Abdomen soft and round. Positive bowel sounds. INTEGUMENTARY: No rashes noted. No cellulitis noted. EXTREMITIES: 2+ peripheral pulses. No evidence of peripheral edema. No calf tenderness noted. NEUROLOGIC: Cranial nerves II-XII intact. PSYCHIATRIC: Awake, alert, and oriented X 3. Appropriate affect. Intact judgement and insight. - Labs CBC & Chem 7: 02/07/20 04:09 02/07/20 04:09 Labs: Abnormal Lab Results - Last 24 Hours (Table) 02/07/20 02/07/20 02/07/20 Range/Units 12:00 17:04 20:10 POC Glucose (mg/dL) 128 H 125 H 149 H (75-99) mg/dL 02/08/20 Range/Units 05:49 POC Glucose (mg/dL) 119 H (75-99) mg/dL Assessment and Plan Assessment: (1) CAD (coronary artery disease) severe multivessel,status post CABG Current Visit: No Status: Acute Code(s): I25.10 - ATHSCL HEART DISEASE OF [place] CORONARY ARTERY W/O ANG PCTRS SNOMED Code(s): 62960928 (2) hypotension, secondary to the above, resolved (3) history of hypertension (4) osteoarthritis (5) prostate cancer, status post prostatectomy (6) hyperlipidemia (7) acute blood loss anemia, postoperative, expected, suspect dilutional (8) bibasilar atelectasis Plan: Continue on current medication regime ,monitoring and symptomatic treat ment. Significant clinical improvement. Continue increasing activity as tolerated .Low-grade fever, maintain aggressive pulmonary toileting with incentive spirometer reinforced. Patient is eager for discharge. Anticipate discharge within the next 24 hours as per cardiothoracic surgery. Follow-up with PCP, Dr. Painter in 1 week, continue using incentive spirometer outpatient as advised.. The impression and plan of care has been dictated as directed. : I performed a history and examination of this patient, discussed the same with the dictator. I agree with the dictator's note ,documented as a scribe. Any additional findings or plans will be noted.
--- NOTE | 2020-02-08 10:10 | XR ---
EXAMINATION TYPE: XR chest 2V DATE OF EXAM: 02/08/2020 COMPARISON: Prior chest x-ray 02/07/2020 HISTORY: Postoperative CABG TECHNIQUE: Frontal and lateral views of the chest are obtained. FINDINGS: Patient is post median sternotomy and left atrial appendage clipping placement. There is n o evident pneumothorax. Patchy basilar density is again seen. Left-sided chest tube and right-sided c hest tube on the longer seen. Heart size is stable. IMPRESSION: No evident complication status post chest tubes removals. Subsegmental basilar atelectat ic changes, difficult to exclude minimal effusion
[2020-02-08 10:34] LABS: HCT 22.5 % (39.0-53.0); HGB 7.3 gm/dL (13.0-17.5); MCH 30.6 pg (25.0-35.0); MCHC 32.5 g/dL (31.0-37.0); MCV 94.1 fL (80.0-100.0); Mean Platelet Volume 8.1; Platelet Count 144 k/uL (150-450); RDW 13.2 % (11.5-15.5); WBC 7.1 k/uL (3.8-10.6)
[2020-02-08 10:35] LABS: African American GFR (CKD) >90 (>60 ml/min/1.73 sqM); Anion Gap 6 mmol/L; Blood Urea Nitrogen 26 mg/dL (9-20); Calcium 8.7 mg/dL (8.4-10.2); Carbon Dioxide 26 mmol/L (22-30); Chloride 104 mmol/L (98-107); Glucose 147 mg/dL (74-99); Magnesium 2.2 mg/dL (1.6-2.3); Non-African American GFR(CKD) 87 (>60 ml/min/1.73 sqM); Potassium 3.6 mmol/L (3.5-5.1); Sodium 136 mmol/L (137-145)
--- NOTE | 2020-02-08 10:52 | PN ---
PROGRESS NOTE Mr. Coy is a 59-year-old male who has underwent coronary artery bypass grafting. He is feeling well this morning. He is ambulating without difficulty. He denies any chest pain. He denies any dizziness, palpitation. He continues to be in sinus mechanism. Hemodynamically, he is stable. He continues to be at this time on amlodipine 5 mg daily, aspirin once a day, Lipitor 40 mg daily, Plavix 75 mg daily, metoprolol tartrate 50 mg twice a day. PHYSICAL EXAMINATION: Blood pressure 103/70 with a heart rate in the 90s. LUNGS: With mild decreased breath sounds at the bases. HEART: Regular rate and rhythm, S1, S2. No S3. No rub. ABDOMEN: Soft, nontender. EXTREMITIES: With trace edema. IMPRESSION: 1. Status post coronary artery bypass grafting, stable. 2. History of hypertension. 3. History of hyperlipidemia. RECOMMENDATION: Will continue present therapy, increase his level of activity, continue incentive spirometry. I would expect he should be able to be discharged home soon and follow up as an outpatient. MMGUILLERMOL / IJN: [id number] /
[2020-02-08] MEDS ORDERED: POTASSIUM CHLORIDE ER 20 MEQ TAB.ER PO SCH (12:00)
[2020-02-08] MEDS ORDERED: amLODIPine 5 MG TAB PO SCH (12:00)
[2020-02-08] MEDS ORDERED: FUROSEMIDE 10 MG/ML 2 ML VIAL IV STA (12:00)
[2020-02-08 12:30] LABS: Glucose,Whole Blood 123 mg/dL (75-99)
[2020-02-08 14:48] VITALS: BP 99/65; TEMP 98.5
--- NOTE | 2020-02-08 15:01 | P.DS ---
Providers Date of admission: 02/02/20 12:05 Expected date of discharge: 02/08/20 Attending physician: Fabiola Fraire Consults: 02/01/20 09:51 Consult Physician Routine Consulting Provider: Edmundo Vasques Consult Reason/Comments: abnormal stress test Do you want consulting provider notified?: Already Contacted 02/01/20 14:38 Consult Physician Routine Consulting Provider: Inocencio Coto Consult Reason/Comments: CAD, possible CABG Do you want consulting provider notified?: Already Contacted 02/01/20 17:01 Consult Physician Routine Consulting Provider: Marcial Pate Consult Reason/Comments: Pulmonary critical care management Do you want consulting provider notified?: Yes, Notify in am Consult Physician Routine Consulting Provider: Hans Painter Consult Reason/Comments: Medical management Do you want consulting provider notified?: Yes 02/02/20 08:00 Consult to Anesthesia Routine Consulting Provider: Anesthesia,Services Consult Reason/Comments: Cardiac Surgery Pre-Op Primary care physician: Hans Painter [facility] Course: FINAL DIAGNOSIS: 1. Symptomatic multivessel coronary artery disease, postoperative triple-vessel coronary artery bypass grafting surgery 2. Preoperative shortness of breath on exertion, resolved 3. History of hypertension 4. History of prostate cancer status post prostatectomy at age 47 5. Osteoarthritis 6. Postoperative acute blood loss anemia, expected PRINCIPAL PROCEDURE: 1. Triple-vessel coronary artery bypass grafting using the left internal mammary artery to left anterior descending coronary artery, the left radial artery from the aorta to the obtuse marginal coronary artery and a reverse greater saphenous vein graft from the aorta to the right coronary artery. 2. Exclusion of the left atrial appendage using a 35 mm Atriclip. 3. Endoscopic harvesting of the left radial artery. 4. Endoscopic harvesting of the left greater saphenous vein from the knee to th e left groin. 5. Intraoperative transesophageal echocardiogram and epi-aortic scanning. HISTORY OF PRESENT ILLNESS: This a 59-year-old gentleman who is followed by Dr. Hans Painter on an outpatient basis. He has a past medical history significant for hypertension, osteoarthritis, prostate cancer status post prostatectomy at age 47, family history of early onset coronary artery disease with his gr andfather being diagnosed in his early 40s with myocardial infarction and coronary artery disease. The patient recently has been experiencing some shortness of breath with chest heaviness with radiation of pain to his left arm during activity. He has been experiencing these episodes off and on for the past couple of months. On 02/01/2020 he underwent a stress test which was abnormal. Due to the patient's symptoms and abnormal stress test he underwent a cardiac catheterization which demonstrated a 90% stenosis to his proximal left anterior descending coronary artery, a distal stenosis of his left anterior descending coronary artery of 60-70%, a 99% stenosis to his obtuse marginal #1 coronary artery and a totally occluded mid right coronary artery. A 2-D echocardiogram was also completed which showed an overall left ventricular systolic function to be low normal with an ejection fraction between 50 and 55%, trace to mild mitral valve regurgitation and trace to mild pulmonic valve re gurgitation. Because of the findings on the cardiac catheterization, his abnormal stress test and the patient's symptoms a consult was placed to Dr. Fabiola Fraire from cardiothoracic surgery for evaluation and treatment recommendations including myocardial revascularization surgery. Dr. Fraire met with the patient at his bedside on the cardiac observation unit, reviewed the findings on the cardiac catheterization films with the patient, treatment options including myocardial revascularization surgery were discussed. Risks and benefits of myocardial revascularization surgery including the STS risk score were discussed with the patient and knowing and understanding the risk the patient wished to proceed with the myocardial revascularization surgery option. HOSPITAL COURSE: The patient was admitted to the hospital and on 02/05/2020 after obtaining consent, the patient was brought to the preoperative area, prepared in the usual fashion and subsequently taken to the operating room where Dr. Fabiola Fraire performed an urgent triple-vessel coronary artery bypass grafting using the left internal mammary artery to left anterior descending coronary artery, the left radial artery from the aorta to the obtuse marginal coronary artery and a reverse greater saphenous vein graft from the aorta to the right coronary artery, exclusion of the left atrial appendage using a 35 mm Atriclip, endoscopic harvesting of the left radial artery, endoscopic harvesting of the left greater saphenous vein from the knee to the left groin, intraoperative transesophageal echocardiogram and epi-aortic scanning. Upon completion of the surgery the patient was transferred to the cardiovascular intensive care unit where he was recovered, monitored hemodynamically and where he progressed cardiac rehabilitation phase 1. He was extubated, all lines, tubes and supportive drips were discontinued when appropriate and he was transferred to the cardiac stepdown unit for further monitoring and rehabilitation. His oxygen was titrated down, he continued to work with physical, occupational therapy, cardiac rehab, he was tolerating an oral diet, his pain was well-controlled and he was ready to be discharged home with [facility] care on postoperative day #3. He has received written and verbal instructions regarding his medications, activity restrictions, signs and symptoms requiring physician notification and his follow-up appointment. COMPLICATIONS: There were no postoperative complications. CONSULTATIONS: 1. Dr. Vasques for cardiology management. 2. Dr. Pate for pulmonary and ventilator management. 3. Dr. Hans Painter for medical management. Plan - Discharge Summary Discharge Rx Participant: Yes New Discharge Prescriptions: New Aspirin 325 mg PO DAILY tab Furosemide [Lasix] 20 mg PO DAILY #5 tab Atorvastatin [Lipitor] 40 mg PO DAILY #30 tab Metoprolol Tartrate [Lopressor] 50 mg PO BID #60 tab Clopidogrel [Plavix] 75 mg PO DAILY #30 tab Pantoprazole [Protonix] 40 mg PO AC-BRKFST #30 tablet. Acetaminophen Tab [Tylenol] 1,000 mg PO Q6HR PRN tab PRN Reason: Fever And/ Or Pain Continue Multivitamins, Thera [Multivitamin (formulary)] 1 tab PO DAILY Albuterol Sulfate [Albuterol Sulfate Hfa] 1 puff INHALATION RT-QID PRN PRN Reason: Shortness Of Breath amLODIPine [Norvasc] 2.5 mg PO DAILY #30 tab Discharge Medication List Albuterol Sulfate [Albuterol Sulfate Hfa] 1 puff INHALATION RT-QID PRN 02/01/20 [History] Multivitamins, Thera [Multivitamin (formulary)] 1 tab PO DAILY 02/01/20 [History] Acetaminophen Tab [Tylenol] 1,000 mg PO Q6HR PRN tab 02/08/20 [Rx] Aspirin 325 mg PO DAILY tab 02/08/20 [Rx] Atorvastatin [Lipitor] 40 mg PO DAILY #30 tab 02/08/20 [Rx] Clopidogrel [Plavix] 75 mg PO DAILY #30 tab 02/08/20 [Rx] Furosemide [Lasix] 20 mg PO DAILY #5 tab 02/08/20 [Rx] Metoprolol Tartrate [Lopressor] 50 mg PO BID #60 tab 02/08/20 [Rx] Pantoprazole [Protonix] 40 mg PO AC-BRKFST #30 tablet. 02/08/20 [Rx] amLODIPine [Norvasc] 2.5 mg PO DAILY #30 tab 02/08/20 [Rx] Follow up Appointment(s)/Referral(s): Edmundo Vasques MD [STAFF PHYSICIAN] - 1 Week (Dr. Vasques's office will call with follow-up appointment.) Fabiola Fraire MD [STAFF PHYSICIAN] - 03/07/20 10:00 am Hans Painter DO [Primary Care Provider] - 02/12/20 2:40 pm Denton Albarran NPC [Nurse Practitioner] - 02/13/20 3:15 pm Marcial Pate DO [Doctor of Osteopathic Medicine] - 03/05/20 1:00 pm [facility], [NON-STAFF] - 1-2 Days Ambulatory/Diagnostic Orders: Complete Blood Count w/diff [LAB.AMB] Time Frame: 02/11/20, Facility: [facility], Location: Laboratory [facility] Comprehensive Metabolic Panel [LAB.AMB] Time Frame: 02/11/20, Facility: [facility], Location: [facility] Activity/Diet/Wound Care/Special Instructions: DISCHARGE INSTRUCTIONS: 1. No driving for 4 weeks, or until physician gives their ok. 2. The patient should sleep in their own bed, no medical bed needed. 3. Stairs are not an issue. If the bedroom is upstairs, it is advised that the patient go up at night and down in the morning for the first week. Go slowly, using handrail and take 1 step at a time. 4. LILIA hose are to be worn for 30 days or until physician discontinues. 5. Heart hugger is to be worn 100% of the time until physician discontinues.(except when showering) 6. No lifting, pushing, or pulling more than 10 pounds for 12 weeks. The physician will advise of any restriction changes. 7. The patient is expected to continue the prescribed walking program. 8. Continue pain control per as needed orders. 9. Continue with incentive spirometry and splinting/heart hugger until otherwise directed by the physician. 10. Must shower daily using liquid antibacterial soap and a separate white washcloth for each individual incision. 11. Routine sternal incision care. No powders, lotions, ointments on incisions. No dressings are necessary on incisions unless they are draining. Dermabond tape is to remain on sternal incision until surgeon follow-up. 12. Please call surgeon/CLINICAL ACCOUNT SPECIALIST for temp greater than 101 F or purulent drainage from incisions. 13. All prescriptions given by surgeon for 30 days. Refills need to be filled through computer forensics investigator/primary care physician. 14. A Red armband has been placed on the patient. It should be worn for 30 days post surgery and will be removed by the cardiac surgeons. If an ER visit is necessary, please make sure the number on the Red armband is called. 15. You have been referred to and are expected to begin Cardiac Rehab in approximately 4-6 weeks. en stop 16. Please weigh yourself every morning and keep a log of your daily weights HOME HEALTH SERVICES TO PROVIDE: RN SKILLED HOME CARE SERVICES FOR POST-OP SURGICAL PATIENTS WITH THE FOLLOWING: Coronary Artery Bypass Surgery (CABG), Mitral Valve Replacement/Repair ( MVR), Aortic Valve Replacement/Repair (AVR) RN TO CONTINUE EDUCATION FROM ``ROAD TO A HEALTH HEART PATIENT EDUCATION MANUAL (GIVEN TO PATIENT IN THE HOSPITAL) MEDICATION RECONCILIATION WITH EDUCATION NEEDED ON FIRST HOME VISIT EMPHASIZE IMPORTANCE OF WEARING BREAST SUPPORT/HEART HUGGER ENCOURAGE USE OF INCENTIVE SPIROMETER 10 X EVERY HOUR WHILE AWAKE ENCOURAGE UTILIZATION OF LOWER EXTREMITY COMPRESSION STOCKINGS/LILIA HOSE and ELEVATE LEGS ABOVE LEVEL OF HEART WHILE AT REST. ENCOURAGE AMBULATION 3-5x/day INCREASING TOLERATES, WHILE AVOIDING EXTREMES IN TEMPERATURE FREQUENCY: RN TO OPEN THE PATIENT WITHIN 24 HOURS OF DISCHARGE FROM THE HOSPITAL WITH TELEHEALTH INSTALLED AT [facility], RN TO VISIT 2-3 X A WEEK FOR 4 WEEKS ESTABLISHED BY PATIENT NEEDS. LABORATORY: CBC, CMP TO BE DRAWN ON THE THIRD DAY HOME, 02/11/2020 (RAN STAT) FAX RESULTS TO [phone]. TELEHEALTH PARAMETERS: WEIGHT: NOTIFY MD OF WEIGHT GAIN OF 2 LBS IN 24 HOURS OR 5 LBS IN ONE WEEK HR: NOTIFY MD OF HR <55 BPM OR HR>100 BPM BP: NOTIFY MD IF BP <90/55 OR BP>140/100 O2 SAT: NOTIFY MD IF PO2<93% ON ROOM AIR SEND TELEHEALTH REPORT TO WOMEN'S [facility]ALTH CARE NURSE PRACTITIONER AND CARDIOVASCULAR SURGEON THE FIRST WEEK OF CARE AND THEN BI-WEEKLY. PLEASE ADDITIONALLY COMMUNICATE ANY ABNORMALS AND NEW FINDINGS TO THE SURGEONS OFFICE. For any questions or concerns please call pelletizer tender Dayna @ or Velasquez @ Discharge Disposition: HOME WITH HOME HEALTH SERVICES
[2020-02-08 15:37] VITALS: PULSE 92
--- NOTE | 2020-02-08 16:36 | P.PN ---
Subjective Progress Note Date: 02/08/20 Principal diagnosis: The patient is seen today 02/08/2020 in follow-up on the selective care unit. He is doing very well. His been up ambulating with assistance. He is maintaini ng good O2 saturation in the 90s on room air. Chest x-ray reveals evidence of chest tube removals. No complications. Subsegmental basilar atelectatic changes. He continues to work well with the incentive spirometer. White count 7.1. Hemoglobin 7.3. Sodium 136. Potassium 3.6. Creatinine 0.96. He did receive additional Lasix 20 mg IVP 1 today. Objective - Vital Signs Vital signs: Vital Signs Temp 98.5 F 02/08/20 11:35 Pulse 92 02/08/20 15:36 Resp 18 02/08/20 11:35 BP 99/65 02/08/20 11:35 Pulse Ox 97 02/08/20 11:35 Intake & Output 02/07/20 02/08/20 02/08/20 18:59 06:59 18:59 Intake Total 655 10 840 Output Total 625 Balance 30 10 840 Weight 97 kg Intake: IV 75 10 0.9 10 Pressure bags 15 Sodium Chloride 0.9% 1, 60 000 ml @ 20 mls/hr IV . Q24H LEANNE Rx#:[id number] Oral 580 840 Output: Drainage [address] x [address] 50 Urine 575 Other: Voiding Method Urinal Toilet # Voids 1 1 1 # Bowel Movements 0 ABP, PAP, CO, CI - Last Documented Arterial Blood Pressure 143/78 Pulmonary Artery Pressure 15/7 Cardiac Output 6.4 Cardiac Index 3.0 - Exam GENERAL EXAM: Alert, pleasant 59-year-old gentleman, on room air comfortable in no apparent distress. HEAD: Normocephalic. EYES: Normal reaction of pupils, equal size. NOSE: Clear with pink turbinates. THROAT: No erythema or exudates. NECK: No masses, no JVD. CHEST: Sternal dressing dry and intact. Heart Hugger in place. No chest wall d eformity. LUNGS: Equal air entry with crackles in the posterior bases. CVS: S1 and S2 normal with no audible murmur, regular rhythm. ABDOMEN: No hepatosplenomegaly, normal bowel sounds, no guarding or rigidity. SPINE: No scoliosis or deformity SKIN: No rashes CENTRAL NERVOUS SYSTEM: No focal deficits, tone is normal in all 4 extremities. EXTREMITIES: There is no peripheral edema. No clubbing, no cyanosis. Peripheral pulses are intact. - Labs CBC & Chem 7: 02/08/20 09:22 02/08/20 09:22 Labs: Abnormal Lab Results - Last 24 Hours (Table) 02/07/20 02/07/20 02/08/20 Range/Units 17:04 20:10 05:49 RBC (4.30-5.90) m/uL Hgb (13.0-17.5) gm/dL Hct (39.0-53.0) % Plt Count (150-450) k/uL Sodium (137-145) mmol/L BUN (9-20) mg/dL Glucose (74-99) mg/dL POC Glucose (mg/dL) 125 H 149 H 119 H (75-99) mg/dL 02/08/20 02/08/20 02/08/20 Range/Units 09:22 09:22 12:29 RBC 2.40 L (4.30-5.90) m/uL Hgb 7.3 L (13.0-17.5) gm/dL Hct 22.5 L (39.0-53.0) % Plt Count 144 L (150-450) k/uL Sodium 136 L (137-145) mmol/L BUN 26 H (9-20) mg/dL Glucose 147 H (74-99) mg/dL POC Glucose (mg/dL) 123 H (75-99) mg/dL Assessment and Plan Assessment: 1 Exertional chest pain in a patient found to have a 90% occlusion of the proximal LAD, 60-70% occlusion of the distal LAD, 99% occlusion of the OM1 and 100% occlusion of the RCA. Status post coronary artery bypass grafting on 01/19 where he received a GONZALEZ to the LAD, left radial artery to the obtuse marginal, reverse saphenous vein graft to the RCA. 2 hypertension 3 Osteoarthritis 4 Prostate cancer status post prostatectomy at age 47 5 Family history of coronary artery disease Plan: The patient was seen and evaluated by Dr. Meza Currently stable from the pulmonary standpoint Plan is for home today Continue to utilize incentive spirometer Follow-up in the office in 1-2 weeks' time Repeat chest x-ray then I, the cosigning physician, performed a history & physical examination of the patient. Lungs sounds with faint crackles in the posterior bases. Maintaining good O2 saturations in the 90s on room air. I discussed the assessment and plan of care with my nurse practitioner, Elizabeth Palomares. I attest to the above note as dictated by her.
--- NOTE | 2020-02-10 10:09 | CDI ---
Documentation Clarification Form Date: 02/10/20 From: Yola Abernathy CCS Phone: If you have a question about this query, please contact Hermila Greene, Date Pitter at [phone] between 8am and 5pm. Admit Date: 02/02/20 Discharge Date:02/08/20 Patient Name: Adán Coy Visit Number: [id number] ATTENTION: The Clinical Documentation Specialists (CDI) and [facility] Coding Staff appreciate your assistance in clarifying documentation. Please respond to the clarification below the line at the bottom and electronically sign. The CDI & [facility] Coding staff will review the response and follow-up if needed. Please note: Queries are made part of the Legal Health Record. If you have any questions, please contact the author of this message via ITS. Dear Dr. Fraire, Hypotension is documented in the PNs. PNs documents: status post CABG, postop day #1.Tolerated procedure well. Extubated, maintaining O2 sats of 100% on 2 L nasal cannula.Received 250 MLS of albumin last night for hypotension.Positive pain, [place] dose increased. Federico- Synephrine weaned off, currently maintained on nitroglycerin and insulin drips.Telemetry sinus rhythm.Blood sugars controlled.Chest x-ray reported persistent basilar atelectatic changes, difficult to exclude minimal effusion. History/Risk Factors: CAD, Post Op CABG, HTN, ABLA Clinical Indicators: Hypotension post op period Patients B/P: 87/48 Labs: Hgb 7.4, Hct 22.1 Treatment: Albumin In your professional opinion, can you please specify the etiology of the hypotension if known? Postural Hypotension Idiopathic Hypotension Drug Induced Hypotension (please specify drug) Chronic Hypotension Postoperative Hypotension- Expected Outcome Postoperative Hypotension-Unexpected Outcome Other Condition, please specify Unable to determine Postoperative Hypotension- Expected Outcome MTDD
== END 2020-02-08 16:30 | disposition home health service (06) | DRG 234 ==
LOC: 3NCARDOBS 10:08 → OBSVTOIN 02-02 12:05 → 2SICU 02-05 13:57 → 3SCARD 02-07 16:39 → 3NCARDOBS 02-08 06:24 → 3SCARD 02-08 06:45
PROVIDERS: ADMIT Surgery; ATTEND Surgery
PROC: 4A023N7 Measurement of Cardiac Sampling and Pressure, Left Heart, Percutaneous Approach (ICD-10-PCS; 2020-02-01)
PROC: B2111ZZ Fluoroscopy of Multiple Coronary Arteries using Low Osmolar Contrast (ICD-10-PCS; 2020-02-01)
PROC: B54DZZZ Ultrasonography of Bilateral Lower Extremity Veins (ICD-10-PCS; 2020-02-02)
PROC: 06BQ4ZZ Excision of Left Saphenous Vein, Percutaneous Endoscopic Approach (ICD-10-PCS; principal; 2020-02-05 08:00)
PROC: 02L70CK Occlusion of Left Atrial Appendage with Extraluminal Device, Open Approach (ICD-10-PCS; principal; 2020-02-05 08:00)
PROC: 021009W Bypass Coronary Artery, One Artery from Aorta with Autologous Venous Tissue, Open Approach (ICD-10-PCS; principal; 2020-02-05 08:00)
PROC: 03BC4ZZ Excision of Left Radial Artery, Percutaneous Endoscopic Approach (ICD-10-PCS; principal; 2020-02-05 08:00)
PROC: 02100AW Bypass Coronary Artery, One Artery from Aorta with Autologous Arterial Tissue, Open Approach (ICD-10-PCS; principal; 2020-02-05 08:00)
PROC: 5A1221Z Performance of Cardiac Output, Continuous (ICD-10-PCS; principal; 2020-02-05 08:00)
PROC: 02100Z9 Bypass Coronary Artery, One Artery from Left Internal Mammary, Open Approach (ICD-10-PCS; principal; 2020-02-05 08:00)
DX: I25.110 Atherosclerotic heart disease of native coronary artery with unstable angina pectoris (principal); E87.2 Acidosis; D62 Acute posthemorrhagic anemia; J98.11 Atelectasis; Z20.828 Contact with and (suspected) exposure to other viral communicable diseases; I95.89 Other hypotension; I25.82 Chronic total occlusion of coronary artery; E11.9 Type 2 diabetes mellitus without complications; I10 Essential (primary) hypertension; F41.9 Anxiety disorder, unspecified; M19.90 Unspecified osteoarthritis, unspecified site; M62.521 Muscle wasting and atrophy, not elsewhere classified, right upper arm; E78.5 Hyperlipidemia, unspecified; Z71.3 Dietary counseling and surveillance; Z79.899 Other long term (current) drug therapy; Z85.46 Personal history of malignant neoplasm of prostate; Z90.79 Acquired absence of other genital organ(s); Z96.641 Presence of right artificial hip joint; Z83.3 Family history of diabetes mellitus; Z82.49 Family history of ischemic heart disease and other diseases of the circulatory system; Z80.9 Family history of malignant neoplasm, unspecified; Z80.1 Family history of malignant neoplasm of trachea, bronchus and lung; Z82.61 Family history of arthritis
CPT/HCPCS: 71045; 71046; 71250; 80048; 80053; 80061; 80074; 81003; 82330; 82805; 83036; 83735; 84443; 85025; 85027; 85520; 85610; 85730; 86850; 86891; 86900; 86901; 86920; 87070; 87635; 93458; 93880; 93922; 93970; 94150; 94640

== ENCOUNTER → 2020-02-01 | Outpatient (CLI) | payer BC ==
--- NOTE | 2020-02-01 11:01 | ECHOF ---
Referral Reason:R06.02 Shortness of Breath MEASUREMENTS -------- HEIGHT: 185.4 cm WEIGHT: 90.7 kg BP: RVIDd: 3.4 cm (< 3.3) IVSd: 1.2 cm (0.6 - 1.1) LVIDd: 4.4 cm (3.9 - 5.3) LVPWd: 1.2 cm (0.6 - 1.1) IVSs: 1.8 cm LVIDs: 3.1 cm LVPWs: 1.6 cm LA Diam: 3.6 cm (2.7 - 3.8) LAESV Index (A-L): 22.70 ml/m Ao Diam: 3.6 cm (2.0 - 3.7) AV Cusp: 2.3 cm (1.5 - 2.6) MV EXCURSION: 24.642 mm (> 18.000) MV EF SLOPE: 196 mm/s (70 - 150) EPSS: 0.7 cm MV E Pierce: 0.95 m/s MV DecT: 165 ms MV A Pierce: 0.60 m/s MV E/A Ratio: 1.58 FINDINGS -------- Sinus rhythm. This was a technically good study. The left ventricular size is normal. There is borderline concentric left ventricular hypertrophy. Overall left ventricular systolic function is low-normal with, an EF between 50 - 55 %. Mid latera l LV wall motion is normal. Mid posterior LV wall motion is normal. Possible inferobasal hypokinesi s, very mild The right ventricle is mildly enlarged. Normal LA size by volume 22+/-6 ml/m2. The right atrium is normal in size. Interatrial and interventricular septum intact. The aortic valve is trileaflet and appears structurally normal. There is trace to mild mitral regurgitation. The tricuspid valve appears structurally normal. Trace/mild (physiologic) pulmonic regurgitation. The aortic root size is normal. Normal inferior vena cava with normal inspiratory collapse consistent with estimated right atrial pre ssure of 5 mmHg. There is no pericardial effusion. CONCLUSIONS -------- 1. The left ventricular size is normal. 2. There is borderline concentric left ventricular hypertrophy. 3. Overall left ventricular systolic function is low-normal with, an EF between 50 - 55 %. 4. The right ventricle is mildly enlarged. 5. Normal LA size by volume 22+/-6 ml/m2. 6. The aortic valve is trileaflet and appears structurally normal. 7. There is trace to mild mitral regurgitation. 8. Trace/mild (physiologic) pulmonic regurgitation. 9. There is no pericardial effusion. MILKING SYSTEM INSTALLER: Anabelle Viera RDCS
--- NOTE | 2020-02-01 13:17 | EST ---
Stress Test Results/Findings: Exam Performed: Exam Date: Reason for Exam: Height: 6 ft 1 in Weight: 92.2 kg Protocol: Stage: Duration of Exercise: Resting Heart Rate: Resting Blood Pressure: Maximum Achieved Heart Rate: Maximum Achieved Blood Pressure: 85% PMHR: 100% PMHR: METS: Technologist Comment: Stress Test Results/Findings: Baseline heart 74 beats a minute, Baseline blood pressure 154/108 mmHg Baseline to ECG shows sinus rhythm with T-wave inversions in the inferior leads and lead V6 Patient exercised on a Mesfin protocol for 9 minutes achieving peak heart rate of 147 beats a minute. Peak blood pressure 176 104 mmHg Within [address] depression in leads V2 -V5. This is a horizontal ST depression that later became downsloping with a 2 mm depression. PVCs were noted the patient complained of shortness of breath and pain along the inner aspect of his upper arm on the left side At recovery ST depressions persisted up to 6 minutes Impression Abnormal stress test, ischemic response Good exercise capacity Occasional PVCs Results discussed with patient his and with his primary care physician Dr. Hans YE
== END | disposition home or self-care (01) ==
LOC: RADNMMAIN 08:16
PROVIDERS: ATTEND Family Medicine
DX: I05.1 Rheumatic mitral insufficiency (principal); I37.1 Nonrheumatic pulmonary valve insufficiency; R94.39 Abnormal result of other cardiovascular function study; I25.9 Chronic ischemic heart disease, unspecified; I49.3 Ventricular premature depolarization
CPT/HCPCS: 93017; 93306